=== PATIENT | female | born 1960 | race Native Hawaiian/Other Pacific Islander ===

== ENCOUNTER → 2020-09-18 12:42 | Outpatient (BNVA) | payer MEDICARE, MEDICAID, SELFPAY | PROVIDERS: PCP Nurse Practitioner Family; Referring Provider Nurse Practitioner Family; Visit Provider Student in an Organized Health Care Education/Training Program | DX: M89.49 Other hypertrophic osteoarthropathy, multiple sites (principal) | CPT/HCPCS: 99213 ==

== ENCOUNTER 2020-10-12 11:06 | Outpatient (REF) | payer OTHER, SELFPAY ==
[2020-10-12 12:30] LABS: MANUAL DIFF FLAG NO
[2020-10-12 12:36] LABS: Basophils Absolute Auto 0.1 X10*3/uL (0.0-0.2); Basophils Percent Auto 0.7 % (0-2); Eosinophils Absolute Auto 0.2 X10*3/uL (0.0-0.4); Eosinophils Percent Auto 2.3 % (0-4); Hematocrit 39.2 % (37-47); Hemoglobin 12.8 g/dl (12.0-16.0); Imm Gran Abs Auto 0.01 X10*3/uL (0.00-0.03); Imm Gran Pct Auto 0.1 % (0.0-0.4); Lymphocytes Absolute Auto 3.2 X10*3/uL (1.2-4.9); Lymphocytes Percent Auto 43.8 % (20-40); Mean Corpuscular HGB Conc 32.7 g/dl (31.0-35.0); Mean Corpuscular Hemoglobin 31.8 pg (27.0-33.0); Mean Corpuscular Volume 97.5 fL (80-98); Mean Platelet Volume 9.7 fL (9.4-12.3); Monocytes Absolute Auto 0.6 X10*3/uL (0.1-1.2); Monocytes Percent Auto 8.2 % (2-11); Neutrophils Absolute Auto 3.3 X10*3/uL (2.0-8.3); Neutrophils Percent Auto 44.9 % (45-73); Platelet Count 296 X10*3/uL (160-400); Red Blood Count 4.02 X10*6/uL (4.20-5.50); Red Cell Distribution Width 12.3 % (11.0-16.0); White Blood Count 7.3 X10*3/uL (4.8-10.8)
[2020-10-12 13:12] LABS: Alanine Aminotransferase 23 U/L (0-31); Alkaline Phosphatase 96 U/L (39-117); Anion Gap 11 (12-20); Aspartate Amino Transferase 28 U/L (5-31); Bilirubin Total 0.4 mg/dL (0.0-1.0); Blood Urea Nitrogen 16 mg/dL (9-16); Calcium 9.3 mg/dL (8.4-10.2); Carbon Dioxide 28 mmol/L (22-29); Chloride 104 mmol/L (96-108); Cholesterol 236 mg/dL; Estimated Glomerular Filt Rate > 60; Glucose Random 72 mg/dL (60-115); HDL Cholesterol 73 mg/dL; LDL Cholesterol Calculated 142 mg/dl; Potassium 4.6 mmol/l (3.3-5.1); Sodium 138 mmol/L (135-145); Total Protein 7.5 g/dL (6.5-8.0); Triglycerides 107 mg/dL
[2020-10-12 13:36] LABS: Syphilis Screen Nonreactive (Nonreactive)
[2020-10-13 11:36] LABS: HIV RNA PCR Qn Copies <20 DETECTED copies/mL (NOT DETECTED); HIV RNA PCR Qn Log Copies <1.30 DETECTED (NOT DETECTED)
[2020-10-13 12:22] LABS: Absolute CD3 Count 2613 cells/uL (840-3060); Absolute CD4 Count 1354 cells/uL (490-1740); Absolute CD8 Count 1242 cells/uL (180-1170); Absolute Lymphocytes 3432 cells/uL (850-3900); CD4 CD8 Ratio 1.09 (0.86-5.00); Percent CD3 Cells 76 % (57-85); Percent CD4 Cells 39 % (30-61); Percent CD8 Cells 36 % (12-42)
[2020-10-15 10:57] LABS: TS Negative Control Passed; TS Panel A 0; TS Panel B 0; TS Positive Control Passed; TSpotTB Negative (SeeBelow)
== END 2020-10-12 11:07 | disposition home or self-care (01) ==
LOC: HO.LAB 11:06
PROVIDERS: Absent Provider Internal Medicine; PCP Family Medicine; Visit Provider Internal Medicine
DX: Z20.828 Contact with and (suspected) exposure to other viral communicable diseases (principal); Z21 Asymptomatic human immunodeficiency virus [HIV] infection status
CPT/HCPCS: 36415; 80053; 80061; 85025; 86359; 86360; 86481; 86780; 87536; C9803; U0003

== ENCOUNTER 2020-12-22 15:40 | Outpatient (REF) | payer OTHER, SELFPAY | END 2020-12-22 15:41 | disposition home or self-care (01) | LOC: HO.LAB 15:40 | PROVIDERS: Visit Provider Internal Medicine | DX: Z20.822 Contact with and (suspected) exposure to COVID-19 (principal) | CPT/HCPCS: 36415; C9803; U0003 ==

== ENCOUNTER 2020-12-22 15:51 | Outpatient (REF) | payer OTHER, SELFPAY ==
--- NOTE | 2020-12-22 | MM_ITS ---
EXAMINATION: MM SCREENING DIGITAL BREAST TOMOSYNTHESIS, BILATERAL CLINICAL INFORMATION: Screening. Asymptomatic. The lifetime risk of breast cancer based on the Tyrer-Cuzick Model is 6%. COMPARISON: Mammography: 12/17/2019, 12/07/2018, 11/06/2017 TECHNIQUE: Digital breast tomosynthesis is performed in both the craniocaudal and mediolateral oblique views along with computer-aided detection (CAD). Synthesized 2D images are generated from the tomosynthesis. Additional right MLO view is provided. FINDINGS: There are scattered areas of fibroglandular density (ACR BI-RADS breast composition Category b). Parenchymal pattern is similar to prior studies. There is no developing density or interval mass or architectural abnormality. Right breast shows no abnormal calcifications. Left breast has several new punctate tightly grouped calcifications central breast on CC view also visible on CC tomography. There are no grouped calcifications noted on MLO view suggesting either scattered calcifications or combination with digital processing artifact. Patient will be recalled for additional imaging. MM/MM tomosynthesis screening BI IMPRESSION: 1. Left: New tightly grouped punctate calcifications central breast on CC view. 2. Right: No mammographic evidence of malignancy. ASSESSMENT: BI-RADS 0: Incomplete - Need Additional Imaging Evaluation RECOMMENDATION: 1. Additional views of the left breast (magnification CC, magnification ML). 2. Radiology department staff will contact the patient for additional imaging. This patient's information was entered into a reminder system with a target due date for their next mammogram.
== END 2020-12-22 15:52 | disposition home or self-care (01) ==
LOC: HO.MAMMO 15:51
PROVIDERS: PCP Family Medicine; Visit Provider Family Medicine
DX: Z12.31 Encounter for screening mammogram for malignant neoplasm of breast (principal)
CPT/HCPCS: 77063; 77067

== ENCOUNTER 2020-12-31 15:39 | Outpatient (REF) | payer OTHER, SELFPAY | END 2020-12-31 15:40 | disposition home or self-care (01) | LOC: HO.LAB 15:39 | PROVIDERS: Visit Provider Internal Medicine | DX: Z20.822 Contact with and (suspected) exposure to COVID-19 (principal) | CPT/HCPCS: 36415; C9803; U0003; U0005 ==

== ENCOUNTER 2021-02-22 12:22 | Outpatient (REF) | payer OTHER, SELFPAY | END 2021-02-22 12:23 | disposition home or self-care (01) | LOC: HO.MAMMO 12:22 | PROVIDERS: Visit Provider Family Medicine | DX: Z13.89 Encounter for screening for other disorder (principal) ==

== ENCOUNTER 2021-02-24 12:56 | Outpatient (REF) | payer OTHER, SELFPAY ==
[2021-02-24 15:38] LABS: SARS COV2 PCR INHOUSE NEGATIVE (Negative)
== END 2021-02-24 12:57 | disposition home or self-care (01) ==
LOC: HO.LAB 12:56
PROVIDERS: Visit Provider Internal Medicine
DX: Z20.822 Contact with and (suspected) exposure to COVID-19 (principal)
CPT/HCPCS: C9803; U0003

== ENCOUNTER 2021-02-26 11:21 | Outpatient (REF) | payer OTHER, SELFPAY ==
--- NOTE | ~2021-02-26 | MM_ITS ---
EXAMINATION: MM DIAGNOSTIC DIGITAL MAMMOGRAPHY, LEFT CLINICAL INFORMATION: Left breast calcifications. COMPARISON: Mammography: 12/22/2020 and studies dating back to 08/10/2012. TECHNIQUE: Digital mammography is performed in the following views: Spot magnification views in craniocaudal and 90 degree mediolateral views. FINDINGS: There are scattered areas of fibroglandular density (ACR BI-RADS breast composition Category b). The calcifications noted within the inferior aspect of the left breast do not have any linear or branching forms. They also appear to be related to or directly adjacent to vessels. Recommend six-month magnification views to ensure stability. Results are provided to the patient at time of visit by the technologist. MM/MM added views LT IMPRESSION: Probably benign left breast calcifications for which 6 month follow-up is recommended. ASSESSMENT: BI-RADS 3: Probably Benign. RECOMMENDATION: Diagnostic mammography in 6 months. This patient's information was entered into a reminder system with a target due date for their next mammogram.
== END 2021-02-26 11:22 | disposition home or self-care (01) ==
LOC: HO.MAMMO 11:21
PROVIDERS: Visit Provider Family Medicine
DX: R92.1 Mammographic calcification found on diagnostic imaging of breast (principal)
CPT/HCPCS: 77065

== ENCOUNTER → 2021-04-07 09:40 | Outpatient (BNVA) | payer OTHER, SELFPAY | PROVIDERS: PCP Nurse Practitioner Family; Referring Provider Nurse Practitioner Family; Visit Provider Student in an Organized Health Care Education/Training Program | DX: M89.49 Other hypertrophic osteoarthropathy, multiple sites (principal) | CPT/HCPCS: 99212 ==

== ENCOUNTER 2021-05-25 11:18 | Outpatient (REF) | payer OTHER, SELFPAY ==
--- NOTE | ~2021-05-25 | XR_ITS ---
EXAMINATION: XR ANKLE, LEFT. XR FOOT, LEFT. CLINICAL INFORMATION: Pain COMPARISON: 05/02/2018 TECHNIQUE: 3 views of the left ankle. 3 views of the left foot. FINDINGS: Normal alignment with no fracture. Large heel spur. The ankle mortise is preserved. Minimal degenerative change of the 1st MTP joint with small osteophyte. No radiopaque foreign body. XR/XR foot LT min 3V IMPRESSION: No acute fracture or dislocation of the left ankle or foot. Large heel spur.
--- NOTE | ~2021-05-25 | XR_ITS ---
EXAMINATION: XR ANKLE, LEFT. XR FOOT, LEFT. CLINICAL INFORMATION: Pain COMPARISON: 05/02/2018 TECHNIQUE: 3 views of the left ankle. 3 views of the left foot. FINDINGS: Normal alignment with no fracture. Large heel spur. The ankle mortise is preserved. Minimal degenerative change of the 1st MTP joint with small osteophyte. No radiopaque foreign body. XR/XR ankle LT min 3V IMPRESSION: No acute fracture or dislocation of the left ankle or foot. Large heel spur.
== END 2021-05-25 11:19 | disposition home or self-care (01) ==
LOC: HO.XRAY 11:18
PROVIDERS: PCP Family Medicine; Referring Provider Family Medicine; Visit Provider Nurse Practitioner Family
DX: M25.572 Pain in left ankle and joints of left foot (principal)
CPT/HCPCS: 73610; 73630

== ENCOUNTER 2021-08-10 14:30 | Outpatient (REF) | payer OTHER, SELFPAY ==
--- NOTE | ~2021-08-10 | MM_ITS ---
EXAMINATION: MM DIAGNOSTIC DIGITAL BREAST TOMOSYNTHESIS, LEFT CLINICAL INFORMATION: Short interval six-month follow-up probable benign punctate calcifications left breast. The lifetime risk of breast cancer based on the Tyrer-Cuzick Model is 6%. COMPARISON: Mammography: 02/26/2021, 12/22/2020 (BI-RADS 0), 12/17/2019. TECHNIQUE: Digital breast tomosynthesis is performed in both the craniocaudal and mediolateral oblique views along with computer-aided detection (CAD). Synthesized 2D images are generated from the tomosynthesis. Additional magnification views are obtained in the CC and ML x2 projections. FINDINGS: There are scattered areas of fibroglandular density (ACR BI-RADS breast composition Category b). There is no interval mass or architectural abnormality. A few fine calcifications are present mid lower quadrant and mid upper quadrant similar to prior diagnostic exam. No pleomorphic types. No increasing calcifications. Results are provided to the patient at time of visit by the technologist. MM/MM tomosynthesis diagnostic LT IMPRESSION: No significant change punctate calcifications upper lower quadrant when compared with prior diagnostic exam. ASSESSMENT: BI-RADS 3: Probably Benign RECOMMENDATION: Magnification views left breast at time of annual bilateral mammography, due in 6 months. This patient's information was entered into a reminder system with a target due date for their next mammogram.
== END 2021-08-10 14:31 | disposition home or self-care (01) ==
LOC: HO.MAMMO 14:30
PROVIDERS: Visit Provider Family Medicine
DX: R92.1 Mammographic calcification found on diagnostic imaging of breast (principal)
CPT/HCPCS: 77061; 77065

== ENCOUNTER 2021-10-15 11:13 | Outpatient (REF) | payer OTHER, SELFPAY ==
--- NOTE | ~2021-10-15 | XR_ITS ---
EXAMINATION: X-RAY LEFT HAND/WRIST CLINICAL INFORMATION: Pain in the left wrist and in the left fingers. COMPARISON: Radiograph of the left hand dated from 05/02/2018. TECHNIQUE: PA, oblique, lateral and navicular views of the left hand/left wrist were obtained. FINDINGS: There is decreased bony mineralization and diffuse soft tissue edema. No evidence of radiopaque foreign bodies. No acute fractures or malalignment. There are mild degenerative changes of the radiocarpal joint and triscaphe space manifested by space narrowing and subcortical sclerosis. No chondrocalcinosis or erosions. XR/XR hand wrist LT IMPRESSION: No acute fractures or malalignment. Mild degenerative osteoarthritis. Diffuse soft tissue edema.
== END 2021-10-15 11:14 | disposition home or self-care (01) ==
LOC: HO.XRAY 11:13
PROVIDERS: PCP Nurse Practitioner; Visit Provider Nurse Practitioner
DX: M25.532 Pain in left wrist (principal); M79.645 Pain in left finger(s)
CPT/HCPCS: 73110; 73130

== ENCOUNTER 2021-11-10 09:12 | Outpatient (REF) | payer OTHER, SELFPAY ==
--- NOTE | ~2021-11-10 | MM_ITS ---
EXAMINATION: BONE DENSITOMETRY CLINICAL INDICATION: Osteoporosis. COMPARISON: Baseline BD dated 05/13/2011, spine and femoral neck. TECHNIQUE: Using a [employer] DXA System (software version: 13.1) manufactured by [employer], dual-energy x-ray absorptiometry was performed of the lumbar spine and left hip. The images are of good technical quality. Summary results are attached. FINDINGS: AP SPINE L1-L4: Current: BMD 0.859 g/cm2, Z-score -2.2, T-score -2.7, osteoporosis, 12.3% decrease from baseline (<5% change is not significant). Baseline: BMD 0.979 g/cm2. LEFT FEMUR, NECK: Current: BMD 0.719 g/cm2, Z-score -1.6, T-score -2.3, osteopenia. Baseline: BMD 0.748 g/cm2. LEFT FEMUR, TOTAL: Current: BMD 0.814 g/cm2, Z-score -1.2, T-score -1.5, osteopenia. IDENTIFIED RISK FACTORS: Menopause. HISTORY OF FRACTURE: None listed. MEDICATIONS: Calcium supplements or multivitamin, vitamin D. MM/XR DEXA axial skeleton IMPRESSION: 1. DIAGNOSIS: Osteoporosis based on the lowest T-score value of -2.7 in the lumbar spine applying World Health Organization criteria. 2. 10-YEAR FRACTURE RISK PREDICTION, FRAX: According to the guidelines, FRAX calculation should only be performed on patients in the osteopenia bone density category. 3. Treatment Recommendations: NOF guidelines recommend consideration for treatment in postmenopausal women and men age 50 and older presenting with the following: -A hip or vertebral (clinical or morphometric) fracture. -T-score less than or equal to -2.5 at the femoral neck or spine after appropriate evaluation to exclude secondary causes. -Low bone mass at the hip or spine and a 10-year fracture probability by FRAX of greater than or equal to 3% for hip fracture or greater than or equal to 20% for major osteoporotic fracture based on the [place] adapted WHO algorithm. 4. Other Recommendations: All treatment decisions require clinical judgment and consideration of individual patient factors, including patient preferences, comorbidities, previous drug use, risk factors not captured in the FRAX model (e.g. frailty, falls, vitamin D deficiency, increased bone turnover, interval significant decline in bone density) and possible under or overestimation of fracture risk by FRAX. Additional medical evaluation for secondary cause of low bone mineral density may be appropriate. FUTURE SCAN RECOMMENDATION: People with diagnosed cases of osteoporosis or at high risk for fracture should have regular bone mineral density tests. For patients eligible for Medicare, routine testing is allowed once every 2 years. The testing frequency can be increased to one year for patients who have rapidly progressing disease, those who are receiving or discontinuing medical therapy to restore bone mass, or have additional risk factors.
== END 2021-11-10 09:13 | disposition home or self-care (01) ==
LOC: HO.MAMMO 09:12
PROVIDERS: Visit Provider Nurse Practitioner
DX: Z13.820 Encounter for screening for osteoporosis (principal); M81.0 Age-related osteoporosis without current pathological fracture; N95.8 Other specified menopausal and perimenopausal disorders; Z78.0 Asymptomatic menopausal state; Z79.899 Other long term (current) drug therapy
CPT/HCPCS: 77080

== ENCOUNTER 2022-01-31 08:46 | Outpatient (REF) | payer OTHER, SELFPAY ==
--- NOTE | ~2022-01-31 | MM_ITS ---
EXAMINATION: MM DIAGNOSTIC DIGITAL BREAST TOMOSYNTHESIS, BILATERAL CLINICAL INFORMATION: Due for yearly. Also follow-up probable benign tightly grouped punctate calcifications central left breast on CC view. TC score 8%. COMPARISON: Mammography: 08/10/2021, 02/26/2021, 12/22/2020 (BI-RADS 0), 12/17/2019, 12/07/2018 TECHNIQUE: Digital breast tomosynthesis is performed in both the craniocaudal and mediolateral oblique views along with computer-aided detection (CAD). Synthesized 2D images are generated from the tomosynthesis. Additional magnification left CC and magnification left ML views are obtained. FINDINGS: There are scattered areas of fibroglandular density (ACR BI-RADS breast composition Category b). Parenchymal pattern is similar to prior exams. There is no developing density or interval mass or architectural abnormality. The axilla and skin contours are unremarkable. No abnormal calcifications on the right. The tightly grouped fine punctate calcifications central left breast on CC view are stable from prior diagnostic studies. They will be reassessed again at time of annual bilateral mammography, due in 12 months. No significant changes. Results are provided to the patient at time of visit by the technologist. MM/MM tomosynthesis diagnostic BI IMPRESSION: No significant changes from prior studies. Probable benign left breast calcifications for follow-up, stable. ASSESSMENT: BI-RADS 3: Probably Benign RECOMMENDATION: Diagnostic mammography at time of next annual exam, due in 12 months. This patient's information was entered into a reminder system with a target due date for their next mammogram.
== END 2022-01-31 08:47 | disposition home or self-care (01) ==
LOC: HO.MAMMO 08:46
PROVIDERS: PCP Nurse Practitioner; Visit Provider Nurse Practitioner
DX: R92.1 Mammographic calcification found on diagnostic imaging of breast (principal)
CPT/HCPCS: 77062; 77066

== ENCOUNTER 2022-03-08 08:59 | Outpatient (REF) | payer OTHER, SELFPAY | END 2022-03-08 09:00 | disposition home or self-care (01) | LOC: HO.LAB 08:59 | PROVIDERS: Visit Provider Obstetrics & Gynecology | DX: R87.810 Cervical high risk human papillomavirus (HPV) DNA test positive (principal) | CPT/HCPCS: 57456; 88305 ==

== ENCOUNTER → 2022-03-22 15:34 | Outpatient (BNVA) | payer OTHER, SELFPAY | PROVIDERS: Visit Provider Obstetrics & Gynecology | DX: N87.0 Mild cervical dysplasia (principal) | CPT/HCPCS: 99212 ==

== ENCOUNTER 2022-04-08 14:07 | Outpatient (REF) | payer OTHER, SELFPAY ==
--- NOTE | ~2022-04-08 | XR_ITS ---
EXAMINATION: XR HIP, LEFT CLINICAL INFORMATION: Chronic left hip pain COMPARISON: None TECHNIQUE: Two views of the left hip. FINDINGS: Bone alignment is normal. No fracture or dislocation is seen. There is a large superior lateral acetabular osteophyte. Joint space is otherwise normal. Soft tissues are normal. XR/XR hip LT min 2V IMPRESSION: Degenerative change.
== END 2022-04-08 14:08 | disposition home or self-care (01) ==
LOC: HO.XRAY 14:07
PROVIDERS: PCP Nurse Practitioner; Visit Provider Nurse Practitioner Family
DX: M25.552 Pain in left hip (principal)
CPT/HCPCS: 73502; 99212

== ENCOUNTER 2022-06-20 13:27 | Outpatient (REF) | payer OTHER, SELFPAY ==
[2022-06-20 14:23] LABS: COVID-19 Test Negative (Negative); IDNOW Serial# 08D9AD1C
== END 2022-06-20 13:28 | disposition home or self-care (01) ==
LOC: HO.LAB 13:27
PROVIDERS: Visit Provider Internal Medicine
DX: Z20.822 Contact with and (suspected) exposure to COVID-19 (principal)
CPT/HCPCS: 87635; C9803

== ENCOUNTER → 2022-09-30 14:11 | Outpatient (BNVA) | payer OTHER, SELFPAY | PROVIDERS: PCP Nurse Practitioner; Visit Provider Nurse Practitioner Family | DX: K62.89 Other specified diseases of anus and rectum (principal); K64.4 Residual hemorrhoidal skin tags; Z86.010 Personal history of colon polyps | CPT/HCPCS: 99202 ==

== ENCOUNTER 2023-02-03 14:50 | Outpatient (REF) | payer OTHER, SELFPAY ==
--- NOTE | ~2023-02-03 | MM_ITS ---
EXAMINATION: MM DIAGNOSTIC DIGITAL BREAST TOMOSYNTHESIS, BILATERAL CLINICAL INFORMATION: One-year follow-up left breast calcifications. Screening right breast study. The lifetime risk of breast cancer based on the Tyrer-Cuzick Model is 5.8%. COMPARISON: Mammography: January 31, 2022 and studies dating back to September 22, 2016 TECHNIQUE: Digital breast tomosynthesis is performed in both the craniocaudal and mediolateral oblique views along with computer-aided detection (CAD). Synthesized 2D images are generated from the tomosynthesis. Additional spot magnification views in craniocaudal and mediolateral projections left breast also performed. FINDINGS: There are scattered areas of fibroglandular density (ACR BI-RADS breast composition Category b). There are no new significant masses, abnormal calcifications, or other abnormalities. Stable left breast calcifications are present. Results are provided to the patient at time of visit by the technologist. MM/MM tomosynthesis diagnostic BI IMPRESSION: There are no significant changes from prior study. ASSESSMENT: BI-RADS 1: Negative RECOMMENDATION: Routine annual mammography screening. This patient's information was entered into a reminder system with a target due date for their next mammogram.
== END 2023-02-03 14:51 | disposition home or self-care (01) ==
LOC: HO.MAMMO 14:50
PROVIDERS: PCP Nurse Practitioner; Visit Provider Nurse Practitioner
DX: R92.1 Mammographic calcification found on diagnostic imaging of breast (principal)
CPT/HCPCS: 77062; 77066

== ENCOUNTER → 2023-03-23 13:15 | Outpatient (BNVA) | payer OTHER, SELFPAY | PROVIDERS: PCP Nurse Practitioner; Visit Provider Surgery Vascular Surgery | DX: I83.11 Varicose veins of right lower extremity with inflammation (principal) | CPT/HCPCS: 99202 ==

== ENCOUNTER 2023-03-27 13:25 | Outpatient (REF) | payer OTHER, SELFPAY ==
[2023-03-30 07:24] LABS: HPV mRNA E6/E7 rflx Not Detected (Not Detected)
== END 2023-03-27 13:26 | disposition home or self-care (01) ==
LOC: HO.LNP 13:25
PROVIDERS: PCP Registered Nurse; Visit Provider Obstetrics & Gynecology
DX: Z01.419 Encounter for gynecological examination (general) (routine) without abnormal findings (principal); Z11.51 Encounter for screening for human papillomavirus (HPV)
CPT/HCPCS: 87624; 88142

== ENCOUNTER 2023-04-04 12:41 | Outpatient (REF) | payer OTHER, SELFPAY ==
--- NOTE | ~2023-04-04 | US_ITS ---
EXAMINATION: US LOWER EXTREMITY VENOUS (REFLUX EXAM), BILATERAL CLINICAL INDICATION: Chronic venous insufficiency with lower extremity varicose veins, inflammation and pain COMPARISON: 10/23/2007 TECHNIQUE: Color flow triplex imaging and compression Doppler was performed to evaluate both the deep and the superficial systems bilaterally. To evaluate the superficial system, the examination was performed in the upright position. Color-flow Doppler ultrasound and compression ultrasound were utilized. In addition, maneuvers were utilized to demonstrate reflux. FINDINGS: 1. DEEP VENOUS ULTRASOUND OF THE RIGHT LOWER EXTREMITY: Common Femoral Vein: Compressible, normal respiratory variation and augmented flow. Femoral Vein: Compressible, normal color flow and augmentation. Popliteal Vein: Compressible, normal augmentation. Deep Reflux: There is no evidence of reflux in the deep system in either the common femoral vein or the popliteal vein. There is no evidence of a Miller's cyst. 2. SUPERFICIAL ULTRASOUND WITH DOPPLER OF RIGHT LOWER EXTREMITY: GREAT SAPHENOUS VEIN: Saphenofemoral Junction: 0.6 cm; Reflux: 0 ms Proximal Thigh: 0.4 cm; Reflux: 0 ms Mid Thigh: Not visualized Above Knee: Not visualized At Knee: Not visualized Below Knee: Not visualized Mid Calf: 0.3 cm; Reflux: 0 ms Ankle: 0.3 cm; Reflux: 3192 ms DUPLICATED MEDIAL GREAT SAPHENOUS VEIN: Diameter: None Imaged Reflux: NA DUPLICATED LATERAL GREAT SAPHENOUS VEIN: Diameter: 0.4 cm Reflux: None SMALL SAPHENOUS VEIN: Proximal: 0.3 cm; Reflux: 0 ms Distal: 0.2 cm; Reflux: 2924 ms VEIN OF GIACOMINI: None Imaged. PERFORATORS: Location: Mid calf extending into the residual great saphenous vein Size: 0.2 cm Reflux: 3388 ms VARICOSITIES: Location: Proximal to mid thigh arising from the residual great saphenous vein Size: 0.2 cm to 0.3 cm Reflux: None 3. DEEP VENOUS ULTRASOUND OF THE LEFT LOWER EXTREMITY: Common Femoral Vein: Compressible, normal respiratory variation and augmented flow. Femoral Vein: Compressible, normal color flow and augmentation. Popliteal Vein: Compressible, normal augmentation. Deep Reflux: There is no evidence of reflux in the deep system in either the common femoral vein or the popliteal vein. There is no evidence of a Miller's cyst. 4. SUPERFICIAL ULTRASOUND WITH DOPPLER OF LEFT LOWER EXTREMITY: GREAT SAPHENOUS VEIN: Saphenofemoral Junction: 0.6 cm; Reflux: 0 ms Proximal Thigh: 0.7 cm; Reflux: 0 ms Mid Thigh: Not visualized Above Knee: Not visualized At Knee: Not visualized Below Knee: Not visualized Mid Calf: 0.2 cm; Reflux: 0 ms Ankle: 0.2 cm; Reflux: 0 ms DUPLICATED MEDIAL GREAT SAPHENOUS VEIN: Diameter: 0.3 cm Reflux: None DUPLICATED LATERAL GREAT SAPHENOUS VEIN: Diameter: None Imaged Reflux: NA SMALL SAPHENOUS VEIN: Proximal: 0.3 cm; Reflux: 0 ms Distal: 0.2 cm; Reflux: 0 ms VEIN OF GIACOMINI: None Imaged. PERFORATORS: Location: Proximal calf Size: 0.4 cm Reflux: 3276 ms VARICOSITIES: Location: Proximal and mid calf arising from the military equipment specialist vein Size: 0.2 cm Reflux: None US/US venous duplex LE BI IMPRESSION: Right: Great saphenous vein from the mid to thigh to the proximal calf is not visualized consistent with prior ablation/closure. Small residual varicose veins as described above Left: Great saphenous vein from the mid to thigh to the proximal calf is not visualized consistent with prior ablation/closure. Small residual varicose veins as described above
== END 2023-04-04 12:42 | disposition home or self-care (01) ==
LOC: HO.US 12:41
PROVIDERS: PCP Nurse Practitioner; Visit Provider Surgery Vascular Surgery
DX: I83.11 Varicose veins of right lower extremity with inflammation (principal)
CPT/HCPCS: 93970

== ENCOUNTER 2023-04-11 09:48 | Outpatient (REF) | payer OTHER, SELFPAY ==
--- NOTE | ~2023-04-11 | XR_ITS ---
EXAMINATION: Right shoulder, elbow and wrist x-rays CLINICAL INFORMATION: Pain COMPARISON: Previous right shoulder x-ray September 2019 TECHNIQUE: 4 views of the right shoulder, 4 views of the right elbow and 4 views of the right wrist FINDINGS: Right shoulder: Bone alignment is normal. No fracture or dislocation. The glenohumeral joint is normal. There is arthritis at the acromioclavicular joint. There is an undersurface acromial osteophyte. There is bony osteophyte at the greater tuberosity. Soft tissues are unremarkable. Right elbow: There is question of a nondisplaced fracture of the radial head. No other fracture is seen. The joint spaces are normal. There is a small joint effusion. Right wrist: Bone alignment is normal. No fracture or dislocation. 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 There is mild osteoarthritis at the first MCFP joint. Soft tissues are normal. XR/XR elbow RT min 3V IMPRESSION: Right shoulder: Degenerative changes Right elbow: Question nondisplaced radial head fracture. 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 Mild degenerative changes at the first MCFP joint.
--- NOTE | ~2023-04-11 | XR_ITS ---
EXAMINATION: Right shoulder, elbow and wrist x-rays CLINICAL INFORMATION: Pain COMPARISON: Previous right shoulder x-ray September 2019 TECHNIQUE: 4 views of the right shoulder, 4 views of the right elbow and 4 views of the right wrist FINDINGS: Right shoulder: Bone alignment is normal. No fracture or dislocation. The glenohumeral joint is normal. There is arthritis at the acromioclavicular joint. There is an undersurface acromial osteophyte. There is bony osteophyte at the greater tuberosity. Soft tissues are unremarkable. Right elbow: There is question of a nondisplaced fracture of the radial head. No other fracture is seen. The joint spaces are normal. There is a small joint effusion. Right wrist: Bone alignment is normal. No fracture or dislocation. 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 There is mild osteoarthritis at the first CUSTODIAL joint. Soft tissues are normal. XR/XR shoulder RT min 2V IMPRESSION: Right shoulder: Degenerative changes Right elbow: Question nondisplaced radial head fracture. 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 Mild degenerative changes at the first CUSTODIAL joint.
--- NOTE | ~2023-04-11 | XR_ITS ---
EXAMINATION: Right shoulder, elbow and wrist x-rays CLINICAL INFORMATION: Pain COMPARISON: Previous right shoulder x-ray September 2019 TECHNIQUE: 4 views of the right shoulder, 4 views of the right elbow and 4 views of the right wrist FINDINGS: Right shoulder: Bone alignment is normal. No fracture or dislocation. The glenohumeral joint is normal. There is arthritis at the acromioclavicular joint. There is an undersurface acromial osteophyte. There is bony osteophyte at the greater tuberosity. Soft tissues are unremarkable. Right elbow: There is question of a nondisplaced fracture of the radial head. No other fracture is seen. The joint spaces are normal. There is a small joint effusion. Right wrist: Bone alignment is normal. No fracture or dislocation. 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 There is mild osteoarthritis at the first SENIOR LIVING joint. Soft tissues are normal. XR/XR wrist RT w scaphoid IMPRESSION: Right shoulder: Degenerative changes Right elbow: Question nondisplaced radial head fracture. 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 Mild degenerative changes at the first SENIOR LIVING joint.
--- NOTE | ~2023-04-11 | XR_ITS ---
EXAMINATION: XR RIBS, RIGHT CLINICAL INFORMATION: Trauma. Patient fell in early March. COMPARISON: Previous chest x-ray July 2015 TECHNIQUE: 3 views of the right ribs were obtained. FINDINGS: Lungs are clear. No consolidation, pneumothorax, or pleural effusion. The cardiomediastinal silhouette and pulmonary vasculature are normal. No rib fracture or bone lesion. Degenerative changes of the spine. XR/XR ribs RT min 3V w CXR1V IMPRESSION: No evidence for acute disease in the chest. No rib fracture.
== END 2023-04-11 09:49 | disposition home or self-care (01) ==
LOC: HO.HHCX 09:48
PROVIDERS: Visit Provider Family Medicine
DX: R07.81 Pleurodynia (principal); M25.521 Pain in right elbow; M25.511 Pain in right shoulder; M25.531 Pain in right wrist
CPT/HCPCS: 71101; 73030; 73080; 73110

== ENCOUNTER → 2023-04-25 10:08 | Outpatient (BNVA) | payer OTHER, SELFPAY | PROVIDERS: PCP Registered Nurse; Visit Provider Surgery Vascular Surgery | DX: I83.11 Varicose veins of right lower extremity with inflammation (principal) | CPT/HCPCS: 99212 ==

== ENCOUNTER 2023-05-02 07:33 | Outpatient (REF) | payer OTHER, SELFPAY ==
--- NOTE | ~2023-05-02 | XR_ITS ---
EXAMINATION: XR ELBOW, RIGHT CLINICAL INFORMATION: Pain in unspecified abdominal COMPARISON: 04/01/2023 Right elbow TECHNIQUE: AP, lateral, and oblique views of the right elbow. FINDINGS: There is a nondisplaced fracture comminuted intra-articular fracture of the radial head. There is slight associated sclerosis indicative of healing No joint effusion is appreciated. Alignment is anatomic. Joint spaces are maintained. XR/XR elbow RT min 3V IMPRESSION: Healing nondisplaced comminuted intra-articular fracture of the radial head. At the time of this dictation, PSA service contacted to alert referring M.D. of critical findings.
== END 2023-05-02 07:34 | disposition home or self-care (01) ==
LOC: HO.HOSX 07:33
PROVIDERS: Visit Provider Physician Assistant
DX: S52.121A Displaced fracture of head of right radius, initial encounter for closed fracture (principal)
CPT/HCPCS: 73080; 99202

== ENCOUNTER 2023-06-05 08:18 | Outpatient (AMB) | payer OTHER, SELFPAY ==
--- NOTE | 2023-06-05 08:32 | MHC.OFFVIS ---
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 Patient states that she actually noticed that she has bumps outside of her rectum when she wipes. She does have external hemorrhoids without bleeding no fissures. Will give her script for Proctosol Screen for colon cancer Patient is due to go for colorectal screening. She was supposed to return in 3 years and her last colonoscopy was in 2019, tubular adenoma found. Patient denies any melena, hematochezia, unintentional weight loss or ribbon like stools. Denies any issues with anesthesia, however she did say that needed nausea medicine. Patient denies any history of sleep apnea, however she is obese. Denies any history of infectious diseases in the past or present. Denies any cardiac or respiratory symptoms. Discussed with patient the importance of good bowel prep and clear liquid diet day before the procedure. What to expect before during and after the procedure discussed with patient. I will see her after the procedure. She is agreeable to this plan and verbalizes understanding of instructions. She was given the opportunity to ask questions all questions answered. ? ? Thank you for allowing me to participate in her care Plan Medications New bisacodyl (Dulcolax (bisacodyl)) take 2 tabs at noon the day before your colonoscopy 10 mg (2 x 5 mg) PO ONCE 2 tabs 0RF 1 day Z12.11 polyethylene glycol 3350 (Miralax) As directed by gastroenterology department at [facility] 238 grams PO ONCE 238 grams 0RF Z12.11 hydrocortisone 2.5% (Proctosol HC) 1 appl MO BID-QID PRN 30 grams 2RF hemorrhoids K64.9 TODAY'S VISIT Patient is here today to go over colonoscopy procedure again. Patient has not received phone call to go for colorectal screening. Patient denies any melena, hematochezia, unintentional weight loss and like stools. Denies any changes since the last time I have seen her. Last colonoscopy in 2019 showed tubular adenoma and 3 years follow-up was recommended. Patient will be scheduled for the procedure today. Will discuss with her what to expect before during and after the procedure. Patient denies any GI concerning symptoms except for occasional postprandial abdominal bloating. Patient is moving her bowels without any issues, no longer experiences rectal pain. Denies any cardiac or respiratory symptoms. [facility] Medical History Asthma Depression Primary osteoarthritis involving multiple joints Surgical History H/O tubal ligation Family History Father No problems noted. Mother No problems noted. Social History Household Members: None Housing: Apartment Alcohol intake: never Patient Tobacco Use Status: Never used Tobacco Current occupational status: disabled Sexual orientation: Straight/Heterosexual Gender identity: Female Female Reproductive History Menstrual Age of Menarche: 12 Review of Systems Const Denies weight gain and Denies weight loss ENT Reports no additional complaints, Denies dysphagia and Denies odynophagia Card Reports no additional complaints Resp Reports no additional complaints GI Denies abdominal pain, Denies belching, Denies melena, Reports bloating (Occasional), Denies change in bowel habits, Denies dysphagia, Denies excessive flatus, Denies dyspepsia, Denies heartburn, Denies diarrhea, Denies loose stools, Denies nausea, Denies odynophagia and Denies vomiting Reports no additional complaints Musc Reports no additional complaints Neuro Reports no additional complaints Psych Reports no additional complaints Endo Reports no additional complaints Physical Exam Vital Signs: Last Vital Signs Pulse 64 06/05/23 08:33 BP 128/58 L 06/05/23 08:33 BMI result Body Mass Index 32.9 Const General: healthy appearing, no acute distress and well developed Nutritional Appearance: obese Orientation/consciousness: patient oriented x3 HEENT Head: Yes normal to inspection, Yes normocephalic and Yes atraumatic Face and sinus: Yes normal facial exam Mouth: Normal oral and palatal mucosa present Throat: Yes posterior oropharynx normal, Yes tonsils normal and Yes uvula midline Eyes General: appearance normal, both eyes and all related structures Neck Neck: Yes normal visual inspection, Yes full ROM and Yes trachea midline Thyroid: Thyroid normal Resp Effort & Inspection: normal respiratory effort, able to speak in complete sentences, no tracheal deviation and symmetric chest movement Auscultation: clear to auscultation bilaterally Cardio Jugular venous distension: no JVD Rate: regular rate Heart sounds: S1 normal heart sound present, S2 normal heart sound present, no gallops and no murmurs GI Inspection: Yes normal to inspection, No distended and Yes obesity Palpation (GI): Soft to palpation, not firm, nontender and No hepatosplenomegaly present Auscultation: normal bowel sounds General: Yes no CVA tenderness Back/Spine/Pelvis Back: no CVA tenderness Skin General skin exam: elasticity normal, turgor normal and dry skin Neuro General: patient oriented x3 Psych Appearance: grossly normal Mental Status: mental status grossly normal Speech and movement: Normal speech and movement present Affect: normal affect Assessment & Plan Assessment & Plan (1) Colon cancer screening: Code(s): Z12.11 - Encounter for screening for malignant neoplasm of colon Plan: What to expect before during and after the procedure discussed with patient. Patient states that she has her prep at home. Patient will do split MiraLax prep. Dulcolax at noon day before the procedure and MiraLax at 17:00 and 22:00. Patient will be booked for the procedure today and I will see her after the procedure. She is agreeable to this plan and verbalizes understanding of instructions. She was given the opportunity to ask questions and all questions answered. Thank you for allowing me to participate in her care Coding Level of Care Code Est Pt Level 3 (49875) Diagnoses Colon cancer screening Z12.11 Time Spent (min) 30 Comment 20 minutes spent with patient and additional 10 minutes spent reviewing her records
[2023-06-05 08:33] VITALS: BP 128/58; PULSE 64; BMI 32.9
== END 2023-06-05 10:23 | disposition home or self-care (01) ==
PROVIDERS: PCP Registered Nurse; Visit Provider Nurse Practitioner Family
DX: Z12.11 Encounter for screening for malignant neoplasm of colon (principal)
CPT/HCPCS: 99213

== ENCOUNTER → 2023-06-05 08:18 | Outpatient (BNVA) | payer OTHER, SELFPAY | PROVIDERS: PCP Registered Nurse; Visit Provider Nurse Practitioner Family | DX: Z12.11 Encounter for screening for malignant neoplasm of colon (principal) | CPT/HCPCS: 99212 ==

== ENCOUNTER 2023-06-09 10:00 | Outpatient (RCR) | payer OTHER, SELFPAY ==
--- NOTE | 2023-05-05 15:32 | MHC.OT.EP ---
[address] [phone] Occupational Therapy Plan of Care Patient Name: Ratna Orr Date of Evaluation: 05/05/23 Diagnosis: R RADIAL HEAD FRACTURE Pain Location: R ELBOW RADIATES TO RIBS/CHEST AND SHOULDER/NECK 6/10 AT REST ; 8/10 WITH USE R POSTERIOR SHOULDER 7/10 R VOLAR RADIAL WRIST 8/10 Pain Score: 6-8/10 Pain Scale Used: Numeric (0 - 10) Aggravating Factors: STRAIGHTENING ARM, GENERAL USE Alleviating Factors: IBUPROFEN, TRAMADOL. RELIEF WITH WARM SHOWERS. CREAMS. USING VOLTAREN. Assessment: MS ORR IS A R HANDED F WHO PRESENTS AFTER SHE SUSTAINED A FALL DOWN TWO STAIRS, RESULTING IN A NON DISPLACED R RADIAL HEAD FRACTURE. SHE ALSO C/O R POSTERIOR SHOULDER PAIN AND R RADIAL WRIST PAIN. XRAYS REVEAL DEGENERATIVE CHANGES. HER ELBOW AND WRIST ROM ARE WFL, YET HER SHOULDER CAUSES LIMITATIONS IN HER ABILITY TO WASH AND COMB HER HAIR. SHE WAS IND WITH ADLs BINDING STITCHER, ASSIST WITH IADLS FROM STREET VENDOR. A 43% LIMITATION IS REPORTED PER THE QUICK DASH ASSESSMENT. ONGOING SKILLED OT IS WARRANTED TO ADDRESS THE AREAS MENTIONED BELOW AND IMPROVE HER QOL. Frequency and Duration: The patient will be seen 2X/WEEK FOR 6 WEEKS Short Term Goals: IND HEP IND USE OF HEAT MODALITIES FOR PAIN RELIEF IND JT PROTECTION AND ACTIVITY MODIFICATION Leather Belt Loop Cutter Goals: R GROSS GRASP >25 POUNDS QUICK DASH <30% REPORT <4/10 PAIN AT REST AND DURING ADLs REPORT MILD DIFFICULTIES WITH SLEEP, TRIAL ALT SLEEPING POSITIONS Treatment Plan: Therapeutic Exercise Therapeutic Activity Home Exercise Program Splinting Neuro Re-ed Patient Education Desensitization/Sensory Re-ed Edema Control ADL Training Ultrasound NMES Iontophoresis Paraffin Fluidotherapy MHP Cold Packs Joint Mobilization Soft Tissue Mobilization Kinesiotaping Other (see comments) Electronically Signed By: HUBERT MANJARREZ OTR/L Please Sign and return to therapist. Thank you once again for your referral.
== END 2023-06-23 13:15 | disposition home or self-care (01) ==
LOC: HO.OT 10:00
PROVIDERS: PCP Registered Nurse; Visit Provider Family Medicine
DX: M79.601 Pain in right arm (principal)
CPT/HCPCS: 97033; 97035; 97110; 97140; 97166

== ENCOUNTER 2023-08-29 09:11 | Outpatient (REF) | payer OTHER, SELFPAY ==
[2023-08-29 11:39] LABS: MANUAL DIFF FLAG NO
[2023-08-29 11:46] LABS: Basophils Percent Auto 0.4 % (0-2); Eosinophils Absolute Auto 0.2 X10*3/uL (0.0-0.4); Eosinophils Percent Auto 3.4 % (0-4); Hematocrit 38.5 % (37.0-47.0); Hemoglobin 12.4 g/dl (12.0-16.0); Imm Gran Abs Auto 0.01 X10*3/uL (0.00-0.03); Imm Gran Pct Auto 0.2 % (0.0-0.4); Lymphocytes Absolute Auto 1.8 X10*3/uL (1.2-4.9); Lymphocytes Percent Auto 38.1 % (20-40); Mean Corpuscular HGB Conc 32.2 g/dl (31.0-35.0); Mean Corpuscular Hemoglobin 31.6 pg (27.0-33.0); Mean Platelet Volume 10.2 fL (9.4-12.3); Monocytes Absolute Auto 0.3 X10*3/uL (0.1-1.2); Monocytes Percent Auto 7.2 % (2-11); Neutrophils Absolute Auto 2.4 x10*3/uL (2.0-8.3); Neutrophils Percent Auto 50.7 % (45-73); Platelet Count 244 X10*3/uL (160-400); Red Blood Count 3.93 X10*6/uL (4.20-5.50); Red Cell Distribution Width 12.2 % (11.0-16.0); White Blood Count 4.7 X10*3/uL (4.8-10.8)
[2023-08-29 11:51] LABS: Estimated Average Glucose 105 mg/dL; Hemoglobin A1c % 5.3 % (<6.0)
[2023-08-29 12:48] LABS: Alanine Aminotransferase 14 U/L (0-31); Albumin Level 3.9 g/dL (3.5-5.0); Alkaline Phosphatase 54 U/L (39-117); Anion Gap 10 (12-20); Aspartate Amino Transferase 21 U/L (5-31); Bilirubin Total 0.4 mg/dL (0.0-1.0); Blood Urea Nitrogen 20 mg/dL (9-16); C Reactive Protein 0.29 mg/dL (< or = 0.50); Calcium 9.2 mg/dL (8.4-10.2); Carbon Dioxide 27 mmol/L (22-29); Chloride 108 mmol/L (96-108); Cholesterol 215 mg/dL (<200); Estimated Glomerular Filt Rate > 60; Glucose Random 82 mg/dL (60-115); HDL Cholesterol 60 mg/dL (>40); LDL Cholesterol Calculated 133 mg/dL (<100); Potassium 4.1 mmol/L (3.3-5.1); Sodium 141 mmol/L (135-145); Total Protein 7.5 g/dL (6.5-8.0); Triglycerides 112 mg/dL (<150)
[2023-08-29 12:57] LABS: Syphilis Screen Nonreactive (Nonreactive)
[2023-08-29 12:59] LABS: HBS Num1 1.15 mIU/mL (0-7.99); HBc Num1 0.09 S/CO (0.00-0.79); HBsAGNum1 0.29 S/CO (0.00-0.99); Hepatitis B Core Antibody Nonreactive (Nonreactive); Hepatitis B Surface Antigen Negative (Negative); ~HepC Num1 0.12 S/CO (0.00-0.79); ~Hepatitis B Surface Antibody NONREACTIVE (Nonreactive); ~Hepatitis C Antibody Nonreactive (Nonreactive)
[2023-08-29 13:01] LABS: Erythrocyte Sedimentation Rate 55 MM/HR (0-20)
[2023-08-29 13:07] LABS: TSH reflex Free T4 2.68 uIU/mL (0.32-4.0)
[2023-08-29 13:29] LABS: Folate 13.3 ng/mL (> or = 4.0); Rheumatoid Factor < 13.0 IU/mL (<15.0); Vitamin B12 1289 pg/mL (200-900)
[2023-08-29 15:24] LABS: CT PCR NOT DETECTED (Not Detect.); NG PCR NOT DETECTED (Not Detect.)
[2023-08-31 16:08] LABS: Cyclic Citrullinated Peptide <16 UNITS
[2023-09-02 15:19] LABS: VITAMIN D (1,25 OH) D3 38 pg/mL; Vit D (1,25-Dihydroxy) Total 38 pg/mL (18-72); Vitamin D (1,25 OH) D2 <8 pg/mL
== END 2023-08-29 09:12 | disposition home or self-care (01) ==
LOC: HO.HHCL 09:11
PROVIDERS: Visit Provider Student in an Organized Health Care Education/Training Program
DX: Z00.00 Encounter for general adult medical examination without abnormal findings (principal); Z13.21 Encounter for screening for nutritional disorder; Z13.29 Encounter for screening for other suspected endocrine disorder; E78.5 Hyperlipidemia, unspecified; Z13.1 Encounter for screening for diabetes mellitus; Z20.2 Contact with and (suspected) exposure to infections with a predominantly sexual mode of transmission; Z11.59 Encounter for screening for other viral diseases; M25.549 Pain in joints of unspecified hand; Z72.89 Other problems related to lifestyle
CPT/HCPCS: 0353U; 80053; 80061; 82607; 82652; 82746; 83036; 84443; 85025; 85652; 86140; 86200; 86431; 86704; 86706; 86780; 86803; 87340

== ENCOUNTER 2023-09-12 06:31 | Day surgery (SDC) | payer OTHER, SELFPAY ==
[2023-09-08 15:04] VITALS: BMI 32.8
--- NOTE | 2023-09-11 12:03 | P.CONAN_ITS ---
Documented by User: Camelia Wade NP 09/11/23 12:04 HPI - Anesthesia Eval Consult details Narrative: 63yo F for Colonoscopy PMFSH Active Problems Active Problems: All Active Problems (Updated 05/02/23 @ 12:52 by Lin Henson) Right radial head fracture (Acute) Colon cancer screening (Acute) Well woman exam (Acute) Varicose veins of right lower extremity with inflammation (Acute) Dysplasia of cervix, low grade (TERESITA 1) (Acute) Cervical high risk HPV (human papillomavirus) test positive (Acute) Primary osteoarthritis involving multiple joints (Acute) Past Medical History Medical History Asthma Depression Primary osteoarthritis involving multiple joints Family History Family History Father No problems noted. Mother No problems noted. Surgical History Surgical History H/O tubal ligation Social History Social History Household Members: None Housing: Apartment Alcohol intake: never Patient Tobacco Use Status: Never used Tobacco Use of substances other than those prescribed or required for medical reasons: No Are you DNR?: No Advance Directives: No Advance Directives Information Provided: Yes Current occupational status: disabled Sexual orientation: Straight/Heterosexual Gender identity: Female Meds Allergies Allergy/AdvReac Type Severity Reaction Status Date / Time efavirenz [From Sustiva] Allergy Severe NIGHTMARES Verified 06/05/23 08:34 oxycodone [From PERCOCET] Allergy Intermediate NAUSEA Verified 06/05/23 08:34 VOMITING DIZZYNESS Home Medications Medication Instructions Recorded Confirmed Last Taken Type cholecalciferol (vitamin D3) 25 25 mcg PO DAILY 09/18/20 04/08/22 Unknown History mcg (1,000 unit) capsule emtricitabine 200 mg-rilpivirine 1 tab PO DAILY 09/18/20 04/08/22 Unknown History 25 mg-tenofovir alafenam 25 mg tablet (Salome) vldigatzwtww-iwmddfmn-tyxoyi 1 tab PO DAILY 09/18/20 04/08/22 Unknown History tablet (Cerovite ) tramadol 50 mg tablet 50 mg PO Q8H PRN 09/18/20 04/08/22 Unknown History vitamin B complex (B 1 tab PO DAILY 09/18/20 04/08/22 Unknown History Complex-Vitamin B12 tablet) cyanocobalamin (vitamin B-12) 1,000 mcg PO DAILY 03/23/23 Unknown History 1,000 mcg tablet Exam Exam Date and Time: September 11, 2023 1203 Height,Weight and Vital Signs: Height 5 ft Weight 76.204 kg Pertinent Lab Results Pertinent Lab Results: Laboratory Tests 08/29/23 08/29/23 08:48 09:21 WBC 4.7 L Hgb 12.4 Hct 38.5 Plt Count 244 Sodium 141 Potassium 4.1 Chloride 108 Carbon Dioxide 27 BUN 20 H Creatinine 0.77 Assessment and Plan Assessment Anesthesia Assessment: Chart Reviewed Documented by User: Dirk Calix MD 09/12/23 07:23 [facility] Past Medical History Medical History Asthma Depression Primary osteoarthritis involving multiple joints Family History Family History Father No problems noted. Mother No problems noted. Family history of problems with anesthesia: No Surgical History Surgical History H/O tubal ligation History of Problems with Anesthesia: No Social History Social History Household Members: None Housing: Apartment Alcohol intake: never Patient Tobacco Use Status: Never used Tobacco Use of substances other than those prescribed or required for medical reasons: No Are you DNR?: No Advance Directives: No Advance Directives Information Provided: Yes Current occupational status: disabled Sexual orientation: Straight/Heterosexual Gender identity: Female Meds Allergies Allergy/AdvReac Type Severity Reaction Status Date / Time efavirenz [From Sustiva] Allergy Severe NIGHTMARES Verified 06/05/23 08:34 oxycodone [From PERCOCET] Allergy Intermediate NAUSEA Verified 06/05/23 08:34 VOMITING DIZZYNESS Home Medications Medication Instructions Recorded Confirmed Last Taken Type cholecalciferol (vitamin D3) 25 25 mcg PO DAILY 09/18/20 04/08/22 Unknown History mcg (1,000 unit) capsule emtricitabine 200 mg-rilpivirine 1 tab PO DAILY 09/18/20 04/08/22 Unknown History 25 mg-tenofovir alafenam 25 mg tablet (Odefsey) udfddyeiolbj-djzswujm-mrnnhe 1 tab PO DAILY 09/18/20 04/08/22 Unknown History tablet (Cerovite Senior) tramadol 50 mg tablet 50 mg PO Q8H PRN 09/18/20 04/08/22 Unknown History vitamin B complex (B 1 tab PO DAILY 09/18/20 04/08/22 Unknown History Complex-Vitamin B12 tablet) cyanocobalamin (vitamin B-12) 1,000 mcg PO DAILY 03/23/23 Unknown History 1,000 mcg tablet Exam Airway Mallampati Class: II TM Dist: >3cm Neck ROM: Full Denture: Upper and Lower Assessment and Plan Assessment Anesthesia Assessment: Anesthesia Plan Discussed Final Anesthetic Review Family History of Problems with Anesthesia: No History of Problems with Anesthesia: No NPO: Yes ASA Class: II Final Preanesthetic Review: No Changes in Pt Med Stat, Meds/Allgs Chart Reviewed, Consent Obtained/Reviewed and Anes Risks/Benef Reviewed Patient Risk: Intermediate Procedure Risk: Low Anesthetic Plan Anesthetic Plan: MAC: Disposition: Standard PACU
--- NOTE | 2023-09-12 06:36 | MHC.SHP ---
Pre-Procedural Eval Section A Date of Service: 09/12/23 Section B Chief Complaint: screening Relevant Family History (Specify if Yes): No Relevant Social History: None Present Medications: see Short Stay Collaborative assessment Medical History: Significant History (Asthma Depression Primary osteoarthritis involving multiple joints, HIV) History of Previous Operations: Relevant previous surgery/procedure and date(s) (tubal ligation) Allergies: Allergies Allergy/AdvReac Type Severity Reaction Status Date / Time efavirenz [From Sustiva] Allergy Severe NIGHTMARES Verified 06/05/23 08:34 oxycodone [From PERCOCET] Allergy Intermediate NAUSEA Verified 06/05/23 08:34 VOMITING DIZZYNESS Review of Systems Sugical H&P ROS: Negative: Constitution, Cardiovascular, Respiratory, Neurological, Psychiatric, Hem-Onc, Allergic/Immunologic, Gastrointestinal, Genitourinary, Musculoskeletal, Integumentary, Endocrine and Eyes/Ears/Nose/Throat Exam Surgical H&P Exam: Normal: HEENT, Normal: Heart, Normal: Lungs, Normal: Extremities, Normal: Abdomen, Normal: Skin and Normal: Neurological Plan Diagnosis/Plan: Unchanged I have reviewed the history and physical and performed a pertinent physical examination on my patient. No changes have occurred unless specified. Time Spent With Patient Time: Total time managing care of this patient today ____ minutes.
[2023-09-12 07:11] VITALS: BP 127/88; PULSE 62; RESP 18; TEMP 36.2; O2SAT 100; BMI 31.2
--- NOTE | 2023-09-12 08:16 | W.PM.OPN ---
Operative Note Operative Note Date of Service: 09/12/23 Narrative: Operative Information Procedure Description: Colonoscopy Indication: screening Anesthesia: MAC COLONOSCOPY Instrument: Olympus variable stiffness pediatric scope 190L Colonoscopy Monitoring: Vital signs and clinical assessment, continuous EKG monitoring, Pulse oximetry, Carbon Dioxide monitoring and blood pressure monitoring were done throughout the procedure. Colon withdrawal time was 8 minutes. Procedure: The patient was placed in the left lateral decubitis position and pre-procedure medications were administered. After a digital rectal examination of the ano-rectum, the video colonoscope was inserted into the rectum and advanced through the colon to the cecum/TI. The colonoscope was slowly withdrawn in a retrograde panoramic fashion and the colon mucosa was carefully examined including a retroflexed view of the rectum. Findings and interventions are described below. Procedure Difficulty: easy Findings: Terminal Ileum-normal Melanosis coli noted zach sigmoid colon Cecum:normal Ascending Colon: normal Transverse Colon -normal Descending Colon:normal Sigmoid Colon: mild diverticulosis, 7-8 mm sessile polyp removed with cold snare Rectum: Retroflexion with small internal hemorrhoids, grade I Anorectum - normal Colon preparation: [place] Bowel Preparation Scale Right colon; 2 Transverse colon: 2 Left colon; 2 (0 = Unprepared colon segment with mucosa not seen due to solid stool that cannot be cleared. 1 = Portion of mucosa of the colon segment seen, but other areas of the colon segment not well seen due to staining, residual stool and/or opaque liquid. 2 = Minor amount of residual staining, small fragments of stool and/or opaque liquid, but mucosa of colon segment seen well. 3 = Entire mucosa of colon segment seen well with no residual staining, small fragments of stool or opaque liquid) Impression and Post Procedure Diagnosis: polyps internal hemorrhoids diverticular disease melanosis coli Plan: High fiber diet leaflet Avoid straining at stool, epsom salts and sitz bath, anusol supps or cream Repeat Colonoscopy in 5-7 years if adenomatous polyp, 10 yrs if hyperplastic or earlier if clinically indicated Above findings were reviewed with the patient and relevant handouts were provided if indicated.
[2023-09-12 08:48] VITALS: BP 105/55; PULSE 68; RESP 16; TEMP 36.4; O2SAT 98
[2023-09-12 09:03] VITALS: BP 135/60; PULSE 56; RESP 16; TEMP 36.4; O2SAT 100
== END 2023-09-12 09:40 | disposition home or self-care (01) ==
PROVIDERS: PCP Student in an Organized Health Care Education/Training Program; Visit Provider Internal Medicine Gastroenterology
PROC: 0DJD8ZZ Inspection of Lower Intestinal Tract, Via Natural or Artificial Opening Endoscopic (ICD-10-PCS; CPT 45378; principal; 2023-09-12 08:10)
DX: Z12.11 Encounter for screening for malignant neoplasm of colon (principal); D12.5 Benign neoplasm of sigmoid colon; K64.0 First degree hemorrhoids; K57.30 Diverticulosis of large intestine without perforation or abscess without bleeding; K63.89 Other specified diseases of intestine; J45.909 Unspecified asthma, uncomplicated; M15.9 Polyosteoarthritis, unspecified; B20 Human immunodeficiency virus [HIV] disease; F32.A Depression, unspecified; Z88.5 Allergy status to narcotic agent; Z88.8 Allergy status to other drugs, medicaments and biological substances; Z79.899 Other long term (current) drug therapy
CPT/HCPCS: 45385; 88305

== ENCOUNTER → 2023-09-12 06:31 | Outpatient (BNV) | payer OTHER, SELFPAY | PROVIDERS: PCP Student in an Organized Health Care Education/Training Program; Visit Provider Internal Medicine Gastroenterology | DX: Z12.11 Encounter for screening for malignant neoplasm of colon (principal); D12.5 Benign neoplasm of sigmoid colon; K63.89 Other specified diseases of intestine; K57.30 Diverticulosis of large intestine without perforation or abscess without bleeding | CPT/HCPCS: 45385 ==

== ENCOUNTER 2023-09-24 18:35 | Emergency (ER) | payer OTHER, SELFPAY ==
--- NOTE | ~2023-09-24 | CT_ITS ---
EXAMINATION: CT ABDOMEN AND PELVIS WITH CONTRAST CLINICAL INFORMATION: Periumbilical pain. Tenderness. Nausea/vomiting. COMPARISON: None available. TECHNIQUE: Multidetector volumetric images were obtained from the superior aspect of the liver through the pubic symphysis following administration 85 mL of Omnipaque 350 intravenous contrast. Sagittal and coronal reformatted images were obtained on the technologist's workstation. Oral contrast: No This CT examination was performed using dose optimization techniques as appropriate, variously including the following: *Automated exposure control *Adjustment of mA and/or kV according to patient size (this includes techniques or standardized protocols for targeted exams where dose is matched to indication/reason for exam; i.e. extremities or head) *Use of iterative reconstruction technique DLP: 626 mGy-cm FINDINGS: LUNG BASES: The visualized lung bases are unremarkable. LIVER, GALLBLADDER, AND BILIARY TREE: The liver is normal in size, shape, and attenuation. No focal hepatic lesion or biliary ductal dilatation is present. The gallbladder is unremarkable with no evidence of radiopaque gallstones, gallbladder wall thickening, or obvious pericholecystic inflammatory changes. PANCREAS: Unremarkable. SPLEEN: Unremarkable. ADRENAL GLANDS: Unremarkable. KIDNEYS AND URETERS: The kidneys are normal in size, shape, and attenuation. No hydronephrosis, hydroureter, or calculi seen. Small subcentimeter focus of cortical hypoattenuation in the left kidney is too small to characterize, though statistically favored to correspond to a simple cyst. No recommended imaging follow-up. No perinephric stranding. BLADDER: Unremarkable. GASTROINTESTINAL TRACT: Stomach, small bowel, and colon are normal in caliber. No bowel wall thickening or surrounding inflammatory changes. Appendix is normal. No intraperitoneal free fluid or free air. Tiny sliding-type hiatal hernia. Fluid in the distal esophagus may be due to reflux or dysmotility. There is fluid throughout the colon with associated air-fluid levels, indicative of liquid stool. ABDOMINAL WALL: No significant hernia is appreciated. LYMPH NODES: Normal. VASCULAR: Unremarkable. PELVIC VISCERA: The uterus and adnexa are unremarkable. OSSEOUS STRUCTURES: No fracture or malalignment. There is mild multilevel degenerative disc disease lumbar spine. Prominent facet arthropathy is noted in the lower lumbar spine at L4-L5 and L5-S1. Severe central canal stenosis is suspected at L4-L5 due to a disc bulge, ligamentum thickening, and and facet arthropathy. Osteoarthritis is present in both hips. [id number] osseous pubis. CT/CT abdomen pelvis w IV con IMPRESSION: 1. No acute intra-abdominal or intrapelvic abnormalities. Normal appendix. 2. Liquid stool throughout the colon, indicative of diarrhea. No evidence of colitis. 3. Tiny sliding-type hiatal hernia. Fluid in the distal esophagus may be due to reflux or dysmotility. 4. Multilevel degenerative spondylosis in the lumbar spine with severe central canal stenosis at L4-L5. Fleischner guidelines were followed.
[2023-09-24 18:44] VITALS: BP 140/86; PULSE 76; O2SAT 97
[2023-09-24 18:52] VITALS: BP 142/55; PULSE 77; RESP 18; TEMP 36.5; O2SAT 99; BMI 32.3
--- NOTE | 2023-09-24 19:11 | PC.NURSE ---
episode of mucous-appearing diarrhea upon arrival. patient cleaned and re-adjusted in the bed.
[2023-09-24 19:54] VITALS: BP 120/62; PULSE 83; RESP 17; TEMP 36.6; O2SAT 100
[2023-09-24 20:00] LABS: MANUAL DIFF FLAG NO
[2023-09-24 20:02] LABS: Basophils Percent Auto 0.3 % (0-2); Eosinophils Percent Auto 0.6 % (0-4); Hematocrit 41.2 % (37.0-47.0); Hemoglobin 13.9 g/dl (12.0-16.0); Imm Gran Abs Auto 0.03 X10*3/uL (0.00-0.03); Imm Gran Pct Auto 0.5 % (0.0-0.4); Lymphocytes Absolute Auto 0.4 X10*3/uL (1.2-4.9); Lymphocytes Percent Auto 6.2 % (20-40); Mean Corpuscular HGB Conc 33.7 g/dl (31.0-35.0); Mean Corpuscular Hemoglobin 32.3 pg (27.0-33.0); Mean Corpuscular Volume 95.6 fL (80.0-98.0); Mean Platelet Volume 9.8 fL (9.4-12.3); Monocytes Absolute Auto 0.3 X10*3/uL (0.1-1.2); Monocytes Percent Auto 4.5 % (2-11); Neutrophils Absolute Auto 5.8 x10*3/uL (2.0-8.3); Neutrophils Percent Auto 87.9 % (45-73); Platelet Count 229 X10*3/uL (160-400); Red Blood Count 4.31 X10*6/uL (4.20-5.50); Red Cell Distribution Width 12.2 % (11.0-16.0); White Blood Count 6.6 X10*3/uL (4.8-10.8)
[2023-09-24 20:13] LABS: Lactic Acid 1.3 mmol/L (0.5-2.0)
[2023-09-24] MEDS: 0.9 % Sodium Chloride 1,000 ML 999 ML IV (20:15)
[2023-09-24] MEDS: Lidocaine HCl Viscous 2 % 15 ML SOLUTION MUCOUS MEM (20:15)
[2023-09-24] MEDS: Magnesium Hydrox/Alum Hydrox 30 ML ORAL.SUSP PO (20:15)
[2023-09-24] MEDS: ondansetron HCL 4 MG/2 ML VIAL IVPUSH (20:15)
[2023-09-24] MEDS: Famotidine 20 MG TABLET PO (20:15)
[2023-09-24 20:21] LABS: Alanine Aminotransferase 16 U/L (0-31); Albumin Level 4.3 g/dL (3.5-5.0); Alkaline Phosphatase 63 U/L (39-117); Anion Gap 16 (12-20); Aspartate Amino Transferase 28 U/L (5-31); Bilirubin Total 0.6 mg/dL (0.0-1.0); Blood Urea Nitrogen 20 mg/dL (9-16); Calcium 9.3 mg/dL (8.4-10.2); Carbon Dioxide 19 mmol/L (22-29); Chloride 107 mmol/L (96-108); Creatinine Clr Calc Pharmacy 60.5; Estimated Glomerular Filt Rate > 60; Glucose Random 167 mg/dL (60-115); Potassium 3.7 mmol/L (3.3-5.1); Sodium 138 mmol/L (135-145); Total Protein 8.3 g/dL (6.5-8.0)
[2023-09-24 20:22] LABS: COVID-19 Test Negative (Negative); IDNOW Serial# 6674DD1D
[2023-09-24 20:23] LABS: IDNOW Serial# 08D9AD1C; Influenza A Negative (Negative); Influenza B2 Negative (Negative)
[2023-09-24 20:28] LABS: Lipase 30 U/L (8-78)
--- NOTE | 2023-09-24 20:51 | ED_ITS ---
HPI - Abdominal Pain General Chief Complaint: Abdominal Pain Stated Complaint: ABD PAIN, NAUSEA, VOMITING Time Seen by Provider: 09/24/23 18:52 Source: patient Mode of arrival: ambulatory Limitations: language barrier History of Present Illness HPI narrative: Patient is a 63-year-old female who presents to the emergency department for evaluation of periumbilical and diffuse lower abdominal pain with associated nausea, multiple episodes of bilious vomiting, and diarrhea since yesterday. She states that this began yesterday evening. She is unable to tolerate oral intake without vomiting. She denies any known sick contacts. She denies fevers, chills, URI symptoms, chest pain, shortness of breath difficulty breathing, hematochezia, melena, urinary frequency/urgency/hesitancy, hematuria, dysuria, numbness or tingling of the extremities, weakness. Related Data Home Medications Medication Instructions Recorded Confirmed cholecalciferol (vitamin D3) 25 25 mcg PO DAILY 09/18/20 04/08/22 mcg (1,000 unit) capsule emtricitabine 200 mg-rilpivirine 1 tab PO DAILY 09/18/20 04/08/22 25 mg-tenofovir alafenam 25 mg tablet (Odefsey) wbayuuzriwlx-[id number]-[id number] 1 tab PO DAILY 09/18/20 04/08/22 tablet (Cerovite Senior) tramadol 50 mg tablet 50 mg PO Q8H PRN 09/18/20 04/08/22 vitamin B complex (B 1 tab PO DAILY 09/18/20 04/08/22 Complex-Vitamin B12 tablet) cyanocobalamin (vitamin B-12) 1,000 mcg PO DAILY 03/23/23 1,000 mcg tablet Previous Rx's Medication Instructions Recorded acetaminophen 650 mg 650 mg PO Q8H PRN for pain #90 tabs 07/14/21 tablet,extended release bisacodyl 5 mg tablet,delayed 10 mg (2 x 5 mg) PO ONCE 1 day #2 09/30/22 release (Dulcolax (bisacodyl)) tabs hydrocortisone 2.5 % topical cream 1 appl CA BID-QID PRN hemorrhoids 09/30/22 with perineal applicator #30 grams (Proctosol HC) aluminum-mag hydroxide-simethicone 10 ml PO QID PRN indigestion 09/24/23 200 mg-200 mg-20 mg/5 mL oral susp #3,000 mL (Maalox Advanced) famotidine 20 mg tablet 20 mg PO DAILY #14 tabs 09/24/23 Allergies Allergy/AdvReac Type Severity Reaction Status Date / Time efavirenz [From Sustiva] Allergy Severe NIGHTMARES Verified 06/05/23 08:34 oxycodone [From PERCOCET] Allergy Intermediate NAUSEA Verified 06/05/23 08:34 VOMITING DIZZYNESS Review of Systems Review of Systems Yes all other systems are reviewed and are negative [facility] Past Medical History Attestation statement: The following information was validated with the patient. Source: old records reviewed Medical History Depression Asthma Primary osteoarthritis involving multiple joints Surgical History H/O tubal ligation Family History Family History Father No problems noted. Mother No problems noted. Social History Social History Household Members: None Housing: Apartment Alcohol intake: never Patient Tobacco Use Status: Never used Tobacco Smoked in Last 30 Days: No Use of substances other than those prescribed or required for medical reasons: No Advance Directives: No Patient : No Current occupational status: disabled Sexual orientation: Straight/Heterosexual Gender identity: Female Physical Exam ED Vital Signs: Vital Signs - 24 hr 09/24/23 18:52 09/24/23 19:54 Temperature 97.7 F 97.9 F Pulse Rate 77 83 Respiratory Rate 18 17 Blood Pressure 142/55 H 120/62 Pulse Oximetry 99 100 Oxygen Delivery Method Room Air Room Air BMI result Body Mass Index 32.3 Appearance: Alert.?Oriented to person, place and time. No acute distress.?Normal affect. Eyes: Pupils equal, round and reactive to light.? ENT: Pharynx normal.?? Neck: Normal inspection.? Neck supple.?? CVS: Heart sounds normal. Normal heart rate and rhythm.? Pulses normal.?? Respiratory: No respiratory distress.? Lung sounds clear to auscultation bilaterally?? Abdomen: Soft periumbilical in diffuse lower abdominal tenderness upon palpation. No rigidity. No guarding. No rebound tenderness. Negative Ta sign. Normoactive bowel sounds. No pulsatile mass.?? Skin: Skin warm and dry.? Normal skin color.? ?? Extremities: No lower extremity edema.? No calf ttp? Neuro: Moves all extremities spontaneously. Sensation intact bilaterally. Ambulates with normal steady gait. Course Reevaluation(s) Reevaluation #1: Urinalysis slightly consistent with urogenital contamination, no urine bacteria seen, and no urinary symptoms. COVID-19 and influenza testing are negative. CT of the abdomen and pelvis without acute intra-abdominal pathology, liquid stool throughout the colon but no evidence of colitis, fluid in the distal esophagus screening secondary to reflux. I reviewed these findings with patient and her daughter. After receiving Zofran and GI cocktail she reports resolution of her symptoms. Tolerating oral intake. Symptoms most consistent with likely a gastritis and/or reflux. At this time feel that she is stable for discharge home outpatient follow-up with her primary care provider. Discussed worrisome signs and symptoms that would warrant re-evaluation emergency department. All questions answered. Time: 23:41 Medical Decision Making Medical Decision Making MDM Narrative: Patient is a 63-year-old female with past medical history of osteoarthritis, asthma, depression, cervical dysplasia and HPV presenting to emergency department for evaluation of nausea vomiting diarrhea and abdominal pain as per HPI. At the time my examination she appears uncomfortable, has tenderness to the periumbilical region and diffuse lower abdomen. She is afebrile, without tachycardia tachypnea or hypoxia. No active vomiting at the time of my examination. She denies recent use of antibiotics within the past 3 months or recent hospitalization, no recent travel or sick contacts. Will obtain CBC to evaluate for leukocytosis/ anemia, CMP and lipase to evaluate for abnormal electrolytes /abnormal renal function/ abnormal hepatic/biliary function, CT of the abdomen and pelvis and Urinalysis and viral studies. Will trial pain management with GI cocktail in addition to Zofran IV for nausea vomiting and L normal saline Differential Diagnosis Differential Diagnoses: The differential diagnosis associated with the presentation includes (Gastritis, PUD, cholecystitis, cholelithiasis, colitis, obstruction, diverticulitis, appendicitis, urinary tract infection, pyelonephritis, obstructive calculi) Admission/Observation Consideration of admission/observation: Escalation of care including admission/observation considered (I considered admission for abdominal pain, see course narrative for further detail) Lab Data MDM Lab Attestation statement: I reviewed the patient's lab results. CBC is without leukocytosis or anemia. CMP is overall unremarkable, BUN mildly elevated at 20 I suspect this is likely due to dehydration. LFTs lipase within normal limits. COVID-19 and influenza testing negative. 09/24/23 19:45 09/24/23 19:45 Labs: Lab Results 09/24/23 09/24/23 09/24/23 Range/Units 19:45 19:47 22:07 WBC 6.6 (4.8-10.8) X10*3/uL RBC 4.31 (4.20-5.50) X10*6/uL Hgb 13.9 (12.0-16.0) g/dl Hct 41.2 (37.0-47.0) % MCV 95.6 (80.0-98.0) fL MCH 32.3 (27.0-33.0) pg MCHC 33.7 (31.0-35.0) g/dl RDW 12.2 (11.0-16.0) % Plt Count 229 (160-400) X10*3/uL MPV 9.8 (9.4-12.3) fL Immature Gran % (Auto) 0.5 H (0.0-0.4) % Neut % (Auto) 87.9 H (45-73) % Lymph % (Auto) 6.2 L (20-40) % [place] % (Auto) 4.5 (2-11) % Eos % (Auto) 0.6 (0-4) % Baso % (Auto) 0.3 (0-2) % Lymph # (Auto) 0.4 L (1.2-4.9) X10*3/uL [place] # (Auto) 0.3 (0.1-1.2) X10*3/uL Eos # (Auto) 0.0 (0.0-0.4) X10*3/uL Baso # (Auto) 0.0 (0.0-0.2) X10*3/uL Abs Immat Gran (auto) 0.03 (0.00-0.03) X10*3/uL Absolute Neuts (auto) 5.8 (2.0-8.3) x10*3/uL Absolute Nucleated RBC 0.000 (0.0-0.012) X10*3/uL Nucleated RBC % (auto) 0.0 (0.0-0.2) /100WBC Sodium 138 (135-145) mmol/L Potassium 3.7 (3.3-5.1) mmol/L Chloride 107 (96-108) mmol/L Carbon Dioxide 19 L (22-29) mmol/L Anion Gap 16 (12-20) BUN 20 H (9-16) mg/dL Creatinine 0.86 (0.5-1.4) mg/dL Estim Creat Clear Calc 60.5 Estimated GFR > 60 Random Glucose 167 H (60-115) mg/dL Lactic Acid 1.3 (0.5-2.0) mmol/L Calcium 9.3 (8.4-10.2) mg/dL Total Bilirubin 0.6 (0.0-1.0) mg/dL AST 28 (5-31) U/L ALT 16 (0-31) U/L Alkaline Phosphatase 63 (39-117) U/L Total Protein 8.3 H (6.5-8.0) g/dL Albumin 4.3 (3.5-5.0) g/dL Lipase 30 (8-78) U/L Urine Color Yellow Urine Appearance Clear Urine pH 5.0 (5.0-9.0) Ur Specific [place] >= 1.030 H (1.005-1.025) Urine Protein Negative (Neg-Trace) mg/dL Urine Glucose (UA) Negative (Negative) mg/dL Urine Ketones 15 (Negative) mg/dL Urine Blood Negative (Negative) Urine Nitrite Negative (Negative) Ur Leukocyte Esterase Small (1+) H (Negative) Urine RBC 0-2 (0-2) /HPF Urine WBC 6-10 H (0-5) /HPF Ur Squamous Epith Cells 3-5 (0-2) /HPF Urine Bacteria None Seen (None Seen) Hyaline Casts 0-2 (0-2) /LPF COVID-19 (FARTUN) Negative (Negative) COVID-19 Clin Com See Note Influenza Type A (LEONOR) Negative (Negative) Influenza Type B (LEONOR) Negative (Negative) Influenza A & B Note See Note Independent Interpretation I performed an independent interpretation of an: CT Scan Radiology Impression Discussion of test interpretation with radiology: I have reviewed the radiologist's reading. Radiologist Impression: CT/CT abdomen pelvis w IV con IMPRESSION: 1. No acute intra-abdominal or intrapelvic abnormalities. Normal appendix. 2. Liquid stool throughout the colon, indicative of diarrhea. No evidence of colitis. 3. Tiny sliding-type hiatal hernia. Fluid in the distal esophagus may be due to reflux or dysmotility. 4. Multilevel degenerative spondylosis in the lumbar spine with severe central canal stenosis at L4-L5. Independent Historian Clinical information obtained from an independent historian. History obtained from or confirmed by: Other (Daughter present at bedside a confirms history) External Record Review External record reviewed: Outpatient record and Prior outpatient labs Medications Administered Discontinued Medications Generic Name Dose Route Start Last Admin Trade Name Freq PRN Reason Stop Dose Admin Al Hydroxide/Mg Hydroxide 30 ml 09/24/23 20:00 09/24/23 20:15 Magnesium Hydrox/Alum Hydrox 30 Ml Oral.Susp PO 09/24/23 20:01 30 ml ONCE ONE Administration Famotidine 20 mg 09/24/23 20:00 09/24/23 20:15 Famotidine 20 Mg Tablet PO 09/24/23 20:01 20 mg ONCE ONE Administration Sodium Chloride 1,000 mls @ 999 mls/hr 09/24/23 20:00 09/24/23 21:22 Ns IV 09/24/23 21:00 Infused .Q1H1M SARAH Infusion Iohexol 100 ml 09/24/23 21:23 09/24/23 21:24 Iohexol 350 Mg/Ml 100 Ml Infus..Btl IV 09/24/23 21:24 85 ml ONCE ONE Administration Lidocaine HCl 15 ml 09/24/23 20:00 09/24/23 20:15 Lidocaine Hcl Viscous 2 % 15 Ml Solution MUCOUS MEM 09/24/23 20:01 15 ml ONCE ONE Administration Ondansetron HCl 4 mg 09/24/23 20:00 09/24/23 20:15 Ondansetron Hcl 4 Mg/2 Ml Vial IVPUSH 09/24/23 20:01 4 mg ONCE ONE Administration Discharge Plan Discharge Clinical Impression: Gastroenteritis Patient Disposition: Home, Self-Care Instructions: Gastroenteritis (ED) Additional Instructions: As discussed, your blood work and CT scan today were normal. This is very reassuring have improvement in her symptoms after receiving the medication today. Her symptoms are most likely consistent with acid reflux, or a stomach bug. Drink clear fluids per next 2 days and slowly advance a bland diet. I ntroduce a bland diet including crackers, bananas, rice, soup, toast, and boiled vegetables. This may progress to plain baked or boiled chicken or turkey. Avoid dairy products or foods high in fat or grease. I have sent prescriptions to your pharmacy to help with your symptoms. Please contact your primary care provider and arrange for a follow-up visit within 3 days. You may return back to emergency department any new or worsening symptoms or concerns. Prescriptions: New alum-mag hydroxide-simeth [Maalox Advanced] 200-200-20 mg/5 mL suspension 10 ml PO QID PRN (Reason: indigestion) Qty: 3000 0RF Rx Instructions: administer between meals and at bedtime famotidine 20 mg tablet 20 mg PO DAILY Qty: 14 0RF No Action acetaminophen 650 mg tablet extended release 650 mg PO Q8H PRN (Reason: for pain) Qty: 90 2RF tramadol 50 mg tablet 50 mg PO Q8H PRN vitamin B complex [B Complex-Vitamin B12] Tablet 1 tab PO DAILY cholecalciferol (vitamin D3) 25 mcg (1,000 unit) capsule 25 mcg PO DAILY Odefsey 200-25-25 mg tablet 1 tab PO DAILY Rx Instructions: must administer with a meal/food Cerovite Senior Tablet 1 tab PO DAILY bisacodyl [Dulcolax (bisacodyl)] 5 mg tablet,delayed release (DR/EC) 10 mg PO ONCE 1 Days Qty: 2 0RF Rx Instructions: take 2 tabs at noon the day before your colonoscopy hydrocortisone [Proctosol HC] 2.5 % cream with perineal applicator 1 appl CA BID-QID PRN (Reason: hemorrhoids) Qty: 30 2RF cyanocobalamin (vitamin B-12) 1,000 mcg tablet 1,000 mcg PO DAILY Referrals: [facility] [Primary Care Provider] -
[2023-09-24] MEDS: iohexoL 350 MG/ML 100 ML INFUS..BTL IV (21:24)
[2023-09-24 22:15] LABS: Appearance Urine Clear; Color Urine Yellow; Glucose Urine UA Negative (Negative); Leukocyte Esterase Urine Small (1+) (Negative); Nitrite Urine Negative (Negative); Specific Gravity - Urine >= 1.030 (1.005-1.025); UMIC TRIGGER UACC YES; Urine Blood Negative (Negative); Urine Ketones 15 mg/dL (Negative); Urine Protein Negative (Neg-Trace)
[2023-09-24 22:17] LABS: Bacteria Urine None Seen (None Seen); Hyaline Casts Urine 0-2 /LPF (0-2); RBC Urine 0-2 /HPF (0-2); UACC Culture Trigger YES
--- NOTE | 2023-09-24 23:36 | PC.NURSE ---
pt assessed, oob to the bathroom, gait steady
== END 2023-09-25 00:24 | disposition home or self-care (01) ==
PROVIDERS: Nurse Practitioner Family; Emergency Provider Internal Medicine
DX: K52.9 Noninfective gastroenteritis and colitis, unspecified (principal); R11.2 Nausea with vomiting, unspecified; Z11.52 Encounter for screening for COVID-19; Z20.822 Contact with and (suspected) exposure to COVID-19; Z79.899 Other long term (current) drug therapy
CPT/HCPCS: 74177; 80053; 81001; 83605; 83690; 85025; 87086; 87502; 87635; 99284; 99285; J2405; Q9967

== ENCOUNTER 2023-09-26 09:52 | Outpatient (AMB) | payer OTHER, SELFPAY ==
--- NOTE | 2023-09-26 10:02 | A.OFFVIS_ITS ---
Intake Vital Signs 09/26/23 10:06 Height 5 ft Weight 160 lb 14.999 oz BMI 31.4 BP 117/63 Blood Pressure Location Lt brachial Position Sitting Pulse 65 Intake Visit Reasons: S/P Screening; Dr. Gale Intake Note: Ratna presents in the office as a follow up colonoscopy. CC: She states that after the colonoscopy she was in the ED for nausea, diarrhea and vomitting and was admitted for dehydration. She states that she still has a lot of gas with stomach pains. She is still having a little diarrhea. Staff Engineer Required: Yes Staff Engineer Name: [id number] Allergies efavirenz [From Sustiva] Allergy (Severe, Verified 09/26/23 10:06) NIGHTMARES oxycodone [From PERCOCET] Allergy (Intermediate, Verified 09/26/23 10:06) NAUSEA VOMITING DIZZYNESS HPI S/P Screening; Dr. Gale HPI Details LAST VISIT Colon cancer screening What to expect before during and after the procedure discussed with patient. Patient states that she has her prep at home. Patient will do split MiraLax prep. Dulcolax at noon day before the procedure and MiraLax at 17:00 and 22:00. Patient will be booked for the procedure today and I will see her after the procedure. She is agreeable to this plan and verbalizes understanding of instructions. She was given the opportunity to ask questions and all questions answered. COLONOSCOPY Findings: Terminal Ileum-normal Melanosis coli noted zach sigmoid colon Cecum:normal Ascending Colon: normal Transverse Colon -normal Descending Colon:normal Sigmoid Colon: mild diverticulosis, 7-8 mm sessile polyp removed with cold snare Rectum: Retroflexion with small internal hemorrhoids, grade I Anorectum - normal Colon preparation: [place] Bowel Preparation Scale Right colon; 2 Transverse colon: 2 Left colon; 2 (0 = Unprepared colon segment with mucos a not seen due to solid stool that cannot be cleared. 1 = Portion of mucosa of the colon segme nt seen, but other areas of the colon segment not well seen due to staining, residual stool and/or opaque liquid. 2 = Minor amount of residual staining, s mall fragments of stool and/or opaque liquid, but mucosa of colon segment seen well. 3 = Entire mucosa of colon segment seen well with no residual staining, small fragments of stool or opaque liquid) Impression and Post Procedure Diagnosis: polyps internal hemorrhoids diverticular disease melanosis coli Plan: High fiber diet leaflet Avoid straining at stool, epsom salts and sitz bath, anusol supps or cream Repeat Colonoscopy in 5-7 years if adenomatous polyp, 10 yrs if hyperplastic or earlier if clinically indicated PATHOLOGY RESULTS Diagnosis Colon, sigmoid, polyp: Fragmented colonic mucosa with a minute focus of tubular adenoma, and pigmented lamina propria macrophages consistent with melanosis coli; negative for high-grade dysplasia and carcinoma TODAY'S VISIT: Patient is here today for follow-up. Patient had colonoscopy last week, 2 days after patient started feeling nauseous. Patient was vomiting and had diarrhea. Was seen in the ER. No acute findings with labs and CT scan. Colonoscopy results discussed with patient. 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 Patient denies taking any laxatives. Today patient reports that she has been feeling little better. Reports epigastric discomfort. Denies any nausea or vomiting. Reports acid reflux with dyspepsia without dysphagia or odynophagia. Patient denies melena, hematochezia, unintentional weight loss or ribbon like stools. Patient reports that she is having loose stools, however she admits to being constipated couple times a week [facility] Medical History (Updated 09/26/23 @ 10:41 by Liza Mendoza [facility]) Tubular adenoma Depression Asthma Primary osteoarthritis involving multiple joints Surgical History (Updated 09/26/23 @ 10:06 by EVON Temple) Hx of colonoscopy H/O tubal ligation Family History Father No problems noted. Mother No problems noted. Social History Household Members: None Housing: Apartment Alcohol intake: never Patient Tobacco Use Status: Never used Tobacco Current occupational status: disabled Sexual orientation: Straight/Heterosexual Gender identity: Female Female Reproductive History Menstrual Age of Menarche: 12 Review of Systems Const Denies weight gain and Denies weight loss ENT Reports no additional complaints, Denies dysphagia and Denies odynophagia Card Reports no additional complaints Resp Reports no additional complaints GI Reports abdominal pain, Denies belching, Denies melena, Reports bloating, Denies change in bowel habits, Reports constipation, Denies dysphagia, Denies excessive flatus, Denies dyspepsia, Reports heartburn, Denies diarrhea, Reports loose stools, Denies nausea, Denies odynophagia and Denies vomiting Reports no additional complaints Musc Reports no additional complaints Neuro Reports no additional complaints Psych Reports no additional complaints Endo Reports no additional complaints Physical Exam Vital Signs: Last Vital Signs Pulse 65 09/26/23 10:06 BP 117/63 09/26/23 10:06 BMI result Body Mass Index 31.4 Const General: healthy appearing, no acute distress and well developed Nutritional Appearance: obese Orientation/consciousness: patient oriented x3 HEENT Head: Yes normal to inspection, Yes normocephalic and Yes atraumatic Face and sinus: Yes normal facial exam Mouth: Normal oral and palatal mucosa present Throat: Yes posterior oropharynx normal, Yes tonsils normal and Yes uvula midline Eyes General: appearance normal, both eyes and all related structures Neck Neck: Yes normal visual inspection, Yes full ROM and Yes trachea midline Thyroid: Thyroid normal Resp Effort & Inspection: normal respiratory effort, able to speak in complete sentences, no tracheal deviation and symmetric chest movement Auscultation: clear to auscultation bilaterally Cardio Rate: regular rate Heart sounds: S1 normal heart sound present and S2 normal heart sound present GI Inspection: Yes normal to inspection, No distended and Yes obesity Palpation (GI): Soft to palpation, not firm, nontender and No hepatosplenomegaly present Auscultation: normal bowel sounds General: Yes no CVA tenderness Back/Spine/Pelvis Back: no CVA tenderness Skin General skin exam: elasticity normal, turgor normal and dry skin Neuro General: patient oriented x3 Psych Appearance: grossly normal Mental Status: mental status grossly normal Affect: normal affect Results Reviewed Results Reviewed: ABDOMINAL CT SCAN 09/24/2023 IMPRESSION: 1. No acute intra-abdominal or intrapelvic abnormalities. Normal appendix. 2. Liquid stool throughout the colon, indicative of diarrhea. No evidence of colitis. 3. Tiny sliding-type hiatal hernia. Fluid in the distal esophagus may be due to reflux or dysmotility. 4. Multilevel degenerative spondylosis in the lumbar spine with severe central canal stenosis at L4-L5. Assessment & Plan Assessment & Plan (1) Tubular adenoma: Code(s): D36.9 - Benign neoplasm, unspecified site (2) GERD (gastroesophageal reflux disease): Code(s): K21.9 - Gastro-esophageal reflux disease without esophagitis Qualifiers: Esophagitis presence: esophagitis presence not specified Qualified Code(s): K21.9 - Gastro-esophageal reflux disease without esophagitis (3) Diarrhea: Code(s): R19.7 - Diarrhea, unspecified Qualifiers: Diarrhea type: functional diarrhea Qualified Code(s): K59.1 - Functional diarrhea (4) Chronic idiopathic constipation: Code(s): K59.04 - Chronic idiopathic constipation (5) IBS (irritable bowel syndrome): Code(s): K58.9 - Irritable bowel syndrome without diarrhea Qualifiers: Irritable bowel syndrome type: with both diarrhea and constipation Qualified Code(s): K58.2 - Mixed irritable bowel syndrome Plan Colonoscopy results discussed with patient. 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 Patient has loose stools and constipation. Will start her on Citrucel to help her bulk her stools and patient will take Colace in the evening. Patient also reports acid reflux and dyspepsia. Patient can stay taking pantoprazole daily. Patient was encouraged to avoid dietary triggers and bedtime snacking. Staying upright for minimum 3 hours after meals discussed with patient. Patient will return in 5 weeks, sooner on as needed basis. She is agreeable to this plan and verbalizes understanding of instructions. She was given the opportunity to ask questions and all questions answered. Thank you for allowing me to participate in her care Medications: New pantoprazole take one tablet half an hour before breakfast 40 mg PO DAILY 30 tabs 2RF K21.9 - Gastro-esophageal reflux disease without esophagitis docusate sodium 100 mg PO DAILY 30 caps 3RF K59.00 - Constipation, unspecified methylcellulose (laxative) (Citrucel) 500 mg PO DAILY 30 tabs 2RF K59.00 - Constipation, unspecified Coding Level of Care Code Est Pt Level 4 (70376) Diagnoses Tubular adenoma D36.9 Gastroesophageal reflux disease, unspecified whether esophagitis present K21.9 Esophagitis presence: esophagitis presence not specified Functional diarrhea K59.1 Diarrhea type: functional diarrhea Chronic idiopathic constipation K59.04 Irritable bowel syndrome with both constipation and diarrhea K58.2 Irritable bowel syndrome type: with both diarrhea and constipation Time Spent (min) 35 Comment 20 minutes spent with patient and additional 15 minutes spent reviewing her records
[2023-09-26 10:06] VITALS: BP 117/63; PULSE 65; BMI 31.4
== END 2023-09-26 10:41 | disposition home or self-care (01) ==
PROVIDERS: PCP Registered Nurse; Visit Provider Nurse Practitioner Family
DX: D36.9 Benign neoplasm, unspecified site (principal); K21.9 Gastro-esophageal reflux disease without esophagitis; K59.1 Functional diarrhea; K59.04 Chronic idiopathic constipation; K58.2 Mixed irritable bowel syndrome
CPT/HCPCS: 99214

== ENCOUNTER → 2023-09-26 09:52 | Outpatient (BNVA) | payer OTHER, SELFPAY | PROVIDERS: PCP Registered Nurse; Visit Provider Nurse Practitioner Family | DX: K21.9 Gastro-esophageal reflux disease without esophagitis (principal); K59.1 Functional diarrhea; K59.04 Chronic idiopathic constipation; K58.2 Mixed irritable bowel syndrome; D36.9 Benign neoplasm, unspecified site | CPT/HCPCS: 99212 ==

== ENCOUNTER 2023-09-29 13:48 | Outpatient (AMB) | payer OTHER, SELFPAY ==
[2023-09-29 13:55] VITALS: BP 118/64; PULSE 70; TEMP 36.2; O2SAT 100; BMI 32.4
--- NOTE | 2023-09-29 13:55 | A.OFFVIS_ITS ---
Intake Vital Signs 09/29/23 13:55 Height 5 ft Weight 165 lb 12.602 oz BMI 32.4 BP 118/64 Blood Pressure Location Rt brachial Position Sitting Pulse 70 Pulse Source Pulse Oximeter Temp 97.2 F Temp Source Skin Pulse Oximetry (%) 100 Intake Visit Reasons: Arthralgia Intake Note: Patient presents today to follow up on arthralgia. Last seen- 04/07/21 [employer] Sales Representative Required: Yes Jewelry Sales Representative Name: Marie Roth Information Interpreted: clinical only Accompanied by: Self / Same As Patient Allergies efavirenz [From Sustiva] Allergy (Severe, Verified 09/29/23 13:58) NIGHTMARES oxycodone [From PERCOCET] Allergy (Intermediate, Verified 09/29/23 13:58) NAUSEA VOMITING DIZZYNESS HPI HPI Comments History of Present Illness Details Ms. Segundo is a 61yoF who presents for evaluation of upper extremity pain, shoulder pain and neck pain. She was last seen in the office February 2022. Patient was sent by her primary care provider for suspicion of PMR, given elevated ESR 55. Patient reports pain in her neck, shoulders, and upper arms. 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 She says that it is different from her normal shoulder pain it started about 2 weeks ago. She does not remember doing any activities that could cause the pain. She says that it is worse at night. She takes Tylenol but it does not help. She uses the toilet okay and has no difficulty standing or sitting on the toilet seat. She denies and if fatigue and tender and to her thighs and buttocks. Patient denies headaches, vision changes, TMJ pain. Prior Visit: She reports left heel pain that is worse with walking. Xray of the left heel April 2021 showed a large heel spur. She states that she is following with podiatry and received injections in the past. She admits to left hip pain for years, pain is intermittent, sharp and is improved with position changes and rest, pain is worse with sitting and walking. She admits to intermittent headaches after having COVID, December 2020. [facility] Medical History (Updated 09/29/23 @ 14:27 by VALDEZ Love) PMR (polymyalgia rheumatica) Tubular adenoma Depression Asthma Primary osteoarthritis involving multiple joints Surgical History (Updated 09/26/23 @ 10:06 by EVON Temple) Hx of colonoscopy H/O tubal ligation Family History Father No problems noted. Mother No problems noted. Social History Household Members: None Housing: Apartment Alcohol intake: never Patient Tobacco Use Status: Never used Tobacco Current occupational status: disabled Sexual orientation: Straight/Heterosexual Gender identity: Female Female Reproductive History Menstrual Age of Menarche: 12 Review of Systems Const All systems reviewed & are unremarkable except as noted in HPI and below Physical Exam Vital Signs: Last Vital Signs Temp 97.2 F 09/29/23 13:55 Pulse 70 09/29/23 13:55 BP 118/64 09/29/23 13:55 Pulse Ox 100 09/29/23 13:55 BMI result Body Mass Index 32.4 APPEARANCE: Patient in no acute distress EYES no redness, pupils equal and reactive to light, eyelids normal EARS: External ear normal HEAD/NECK: No scalp tenderness, jaw pain or weakness. No thyromegaly or masses, no adenopathy, trachea midline. HEART: Regular rhythm, S1-S2 heard, no murmurs, rubs or gallops. LUNG: Clear to auscultation throughout bilaterally, respiratory rate regular non-labored. EXTREMITIES: Marked tenderness on palpation to upper and upper shoulders and biceps. Patient unable to lift arms past 90 degrees without discomfort; arms get fatigue with head, shoulder, knees demonstration. Denies tenderness to thighs on palpation, able to sit and stand without complaint NEURO: Oriented and alert x3. No focal weakness. Gait normal. SKIN: No inflammatory or neoplastic lesions. Normal color and turgor Results Reviewed Results Reviewed: Lab Results 09/24/23 09/24/23 09/24/23 Range/Units 19:45 19:47 22:07 WBC 6.6 (4.8-10.8) X10*3/uL RBC 4.31 (4.20-5.50) X10*6/uL Hgb 13.9 (12.0-16.0) g/dl Hct 41.2 (37.0-47.0) % MCV 95.6 (80.0-98.0) fL MCH 32.3 (27.0-33.0) pg MCHC 33.7 (31.0-35.0) g/dl RDW 12.2 (11.0-16.0) % Plt Count 229 (160-400) X10*3/uL MPV 9.8 (9.4-12.3) fL Immature Gran % (Auto) 0.5 H (0.0-0.4) % Neut % (Auto) 87.9 H (45-73) % Lymph % (Auto) 6.2 L (20-40) % [place] % (Auto) 4.5 (2-11) % Eos % (Auto) 0.6 (0-4) % Baso % (Auto) 0.3 (0-2) % Lymph # (Auto) 0.4 L (1.2-4.9) X10*3/uL [place] # (Auto) 0.3 (0.1-1.2) X10*3/uL Eos # (Auto) 0.0 (0.0-0.4) X10*3/uL Baso # (Auto) 0.0 (0.0-0.2) X10*3/uL Abs Immat Gran (auto) 0.03 (0.00-0.03) X10*3/uL Absolute Neuts (auto) 5.8 (2.0-8.3) x10*3/uL Absolute Nucleated RBC 0.000 (0.0-0.012) X10*3/uL Nucleated RBC % (auto) 0.0 (0.0-0.2) /100WBC Sodium 138 (135-145) mmol/L Potassium 3.7 (3.3-5.1) mmol/L Chloride 107 (96-108) mmol/L Carbon Dioxide 19 L (22-29) mmol/L Anion Gap 16 (12-20) BUN 20 H (9-16) mg/dL Creatinine 0.86 (0.5-1.4) mg/dL Estim Creat Clear Calc 60.5 Estimated GFR > 60 Random Glucose 167 H (60-115) mg/dL Lactic Acid 1.3 (0.5-2.0) mmol/L Calcium 9.3 (8.4-10.2) mg/dL Total Bilirubin 0.6 (0.0-1.0) mg/dL AST 28 (5-31) U/L ALT 16 (0-31) U/L Alkaline Phosphatase 63 (39-117) U/L Total Protein 8.3 H (6.5-8.0) g/dL Albumin 4.3 (3.5-5.0) g/dL Lipase 30 (8-78) U/L Urine Color Yellow Urine Appearance Clear Urine pH 5.0 (5.0-9.0) Ur Specific [place] >= 1.030 H (1.005-1.025) Urine Protein Negative (Neg-Trace) mg/dL Urine Glucose (UA) Negative (Negative) mg/dL Urine Ketones 15 (Negative) mg/dL Urine Blood Negative (Negative) Urine Nitrite Negative (Negative) Ur Leukocyte Esterase Small (1+) H (Negative) Urine RBC 0-2 (0-2) /HPF Urine WBC 6-10 H (0-5) /HPF Ur Squamous Epith Cells 3-5 (0-2) /HPF Urine Bacteria None Seen (None Seen) Hyaline Casts 0-2 (0-2) /LPF COVID-19 (FARTUN) Negative (Negative) COVID-19 Clin Com See Note Influenza Type A (LEONOR) Negative (Negative) Influenza Type B (LEONOR) Negative (Negative) Influenza A & B Note See Note EXAMINATION: CT ABDOMEN AND PELVIS WITH CONTRAST CLINICAL INFORMATION: Periumbilical pain. Tenderness. Nausea/vomiting. Independent Interpretation I performed an independent interpretation of an: CT Scan Radiology Impression Discussion of test interpretation with radiology: I have reviewed the radiologist's reading. Radiologist Impression: CT/CT abdomen pelvis w IV con IMPRESSION: 1. No acute intra-abdominal or intrapelvic abnormalities. Normal appendix. 2. Liquid stool throughout the colon, indicative of diarrhea. No evidence of colitis. 3. Tiny sliding-type hiatal hernia. Fluid in the distal esophagus may be due to reflux or dysmotility. 4. Multilevel degenerative spondylosis in the lumbar spine with severe central canal stenosis at L4-L5. Laboratory Tests 08/29/23 08/29/23 08/29/23 08:48 08:48 09:21 Immature Gran % (Auto) 0.2 Neut % (Auto) 50.7 Lymph % (Auto) 38.1 Lymph # (Auto) 1.8 ESR 55 H Ur Leukocyte Esterase Urine WBC Rheumatoid Factor Cycl Citrul Peptide IgG COVID-19 (FARTUN) Influenza Type A (LEONOR) Influenza Type B (LEONOR) 08/29/23 09/24/23 09/24/23 09:21 19:45 19:45 Immature Gran % (Auto) 0.5 H Neut % (Auto) 87.9 H Lymph % (Auto) 6.2 L Lymph # (Auto) 0.4 L ESR Ur Leukocyte Esterase Urine WBC Rheumatoid Factor < 13.0 Cycl Citrul Peptide IgG <16 COVID-19 (FARTUN) Influenza Type A (LEONOR) Negative Influenza Type B (LEONOR) Negative 09/24/23 09/24/23 09/24/23 19:47 22:07 22:07 Immature Gran % (Auto) Neut % (Auto) Lymph % (Auto) Lymph # (Auto) ESR Ur Leukocyte Esterase Small (1+) H Urine WBC 6-10 H Rheumatoid Factor Cycl Citrul Peptide IgG COVID-19 (FARTUN) Negative Influenza Type A (LEONOR) Influenza Type B (LEONOR) Assessment & Plan Assessment & Plan (1) PMR (polymyalgia rheumatica): Code(s): M35.3 - Polymyalgia rheumatica (2) Elevated sed rate: Code(s): R70.0 - Elevated erythrocyte sedimentation rate Plan: # PMR(Polymyalgia Rheumaica)/ELEVATED ESR: Ms. Segundo was sent for evaluation of pain to shoulder, neck and upper extremity pain when she was suspected of having PMR, given elevation in sed rate (55 on 08/28/23). This is different from her usual joint pain that is helped by Tylenol and Tramadol. This pain prevents her from doing some activities that she could have done with her chronic joint pain. On PE she has tenderness to her upper extremities, discomfort to lift her hands above her head and weakness against resistance. Given that PMR is a vasculitis that traditionally affects the larger muscle group of the arms and thighs, I think it is reasonable to assess PMR. When I review the lab for 08/29/2023 and 09/24/2023, in addition to the elevated ESR, I can see significant changes in the CBC differentials such as elevation in neutrophils (50.7 to 87.9) and reduced lymphocytes (38.1 to 6.2). This can occur in the presence of an infection or systemic inflammation. I will also add that the UA showed a small number of leukocyte esterace, which could be concerning for a possible mild urinary tract infection, but there was no bacteria present. It could be considered that this could account for the changes in her lymphocytes and neutrophils. However, this big change is usually seen in a more severe infection or an inflammatory disorder. Moreover, her WBCs were within normal limits and patient also denies UTI symptoms and no AMS observed on PE. Additional immunology labs were also done and results were negative for rheumatoid factor and CCP. The CRP can also be elevated with PMR but was not obtained and ESR was not repeated on 09/24/23 so no comparison could be made. Since the sed rate was done on 08/29/2023 and could be normalized by now, I will do baseline labs for sed rate and CRP, If ESR is still elevated or CRP is elevated, I will initiate treatment with prednisone for PMR. Patient knows to wait for call to start prednisone. Discussed with patient the possible short term side effects of Prednisone which includes but not limited to elevated blood sugars (patient is not T2DM), inso mnia and increase hunger/weight gain . Plan Elevated sed rate 55, low lymphocyte 6.2 and high neutrophils and 84.7 Orders: Orders Erythrocyte Sedimentation Rate 09/29/23 M35.3 - Polymyalgia rheumatica C Reactive Protein 09/29/23 M35.3 - Polymyalgia rheumatica Medications: New prednisone Take 3 tablets for 5 days; then two tablets until next visit. 5 mg PO DIRECTED 90 tabs 0RF Coding Level of Care Code Est Pt Level 3 (90553) Diagnoses PMR (polymyalgia rheumatica) M35.3 Elevated sed rate R70.0
== END 2023-09-29 14:36 | disposition home or self-care (01) ==
PROVIDERS: PCP Registered Nurse; Visit Provider Nurse Practitioner Family
DX: M35.3 Polymyalgia rheumatica (principal); R70.0 Elevated erythrocyte sedimentation rate
CPT/HCPCS: 99214

== ENCOUNTER 2023-09-29 13:48 | Outpatient (REF) | payer OTHER, SELFPAY ==
[2023-09-29 16:16] LABS: C Reactive Protein 0.41 mg/dL (< or = 0.50)
[2023-09-29 16:44] LABS: Erythrocyte Sedimentation Rate 40 MM/HR (0-20)
== END 2023-09-29 13:49 | disposition home or self-care (01) ==
LOC: HO.LAB 13:48
PROVIDERS: PCP Registered Nurse; Visit Provider Nurse Practitioner Family
DX: M35.3 Polymyalgia rheumatica (principal); R70.0 Elevated erythrocyte sedimentation rate
CPT/HCPCS: 36415; 85652; 86140; 99212

== ENCOUNTER 2023-10-31 14:42 | Outpatient (AMB) | payer OTHER, SELFPAY ==
--- NOTE | 2023-10-31 14:45 | A.OFFVIS_ITS ---
Intake Vital Signs 10/31/23 14:49 Height 5 ft Weight 163 lb 2.273 oz BMI 31.9 BP 122/55 L Blood Pressure Location Lt brachial Position Sitting Pulse 73 Intake Visit Reasons: 5 week follow up CIC Intake Note: Ratna presents in the office as a 5 week follow up for CIC CC: She states that she is still the same nothing has really improved. The fiber pill has helped a little bit since the last visit. She would like to know if she should continue taking the prednisone. Chief Construction Inspector Required: Yes Chief Construction Inspector Name: [id number] Allergies efavirenz [From Sustiva] Allergy (Severe, Verified 10/31/23 14:49) NIGHTMARES oxycodone [From PERCOCET] Allergy (Intermediate, Verified 10/31/23 14:49) NAUSEA VOMITING DIZZYNESS HPI 5 week follow up CIC HPI Details LAST VISIT: Tubular adenoma GERD (gastroesophageal reflux disease) Diarrhea Chronic idiopathic constipation IBS (irritable bowel syndrome) Plan Colonoscopy results discussed with patient. 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 Patient has loose stools and constipation. Will start her on Citrucel to help her bulk her stools and patient will take Colace in the evening. Patient also reports acid reflux and dyspepsia. Patient can stay taking pantoprazole daily. Patient was encouraged to avoid dietary triggers and bedtime snacking. Staying upright for minimum 3 hours after meals discussed with patient. Patient will return in 5 weeks, sooner on as needed basis. She is agreeable to this plan and verbalizes understanding of instructions. She was given the opportunity to ask questions and all questions answered. ? Thank you for allowing me to participate in her care Medications New pantoprazole take one tablet half an hour before breakfast 40 mg PO DAILY 30 tabs 2RF K21.9 docusate sodium 100 mg PO DAILY 30 caps 3RF K59.00 methylcellulose (laxative) (Citrucel) 500 mg PO DAILY 30 tabs 2RF K59.00 TODAY'S VISIT Patient is here today for follow-up. Patient is concerned and wants to know if she should continue prednisone. Patient was placed on prednisone by her [place] umatologist for PMR. Patient reports that since she started taking Citrucel her bowels are moving little better. Patient states that she feels like docusate sodium helps but she would like something different to help her move her bowels better. Her symptoms of acid reflux are suppressed with pantoprazole. Patient is taking that in the morning. Patient denies any melena, hematochezia, unintentional weight loss or ribbon like stools. Patient denies any dyspepsia, dysphagia or odynophagia. Overall patient reports that she has been feeling well [facility] Medical History (Updated 09/29/23 @ 14:27 by NGUYỄN Love) PMR (polymyalgia rheumatica) Tubular adenoma Depression Asthma Primary osteoarthritis involving multiple joints Surgical History (Updated 09/26/23 @ 10:06 by EVON Temple) Hx of colonoscopy H/O tubal ligation Family History Father No problems noted. Mother No problems noted. Social History Household Members: None Housing: Apartment Alcohol intake: never Patient Tobacco Use Status: Never used Tobacco Current occupational status: disabled Sexual orientation: Straight/Heterosexual Gender identity: Female Female Reproductive History Menstrual Age of Menarche: 12 Review of Systems Const Denies weight gain and Denies weight loss ENT Reports no additional complaints, Denies dysphagia and Denies odynophagia Card Reports no additional complaints Resp Reports no additional complaints GI Denies abdominal pain, Denies belching, Denies melena, Denies bloating, Denies change in bowel habits, Reports constipation, Denies dysphagia, Denies excessive flatus, Denies dyspepsia, Denies heartburn, Denies diarrhea, Denies loose stools, Denies nausea, Denies odynophagia and Denies vomiting Reports no additional complaints Musc Reports no additional complaints Neuro Reports no additional complaints Psych Reports no additional complaints Endo Reports no additional complaints Physical Exam Vital Signs: Last Vital Signs Pulse 73 10/31/23 14:49 BP 122/55 L 10/31/23 14:49 BMI result Body Mass Index 31.9 Const General: healthy appearing, no acute distress and well developed Nutritional Appearance: obese Orientation/consciousness: patient oriented x3 HEENT Head: Yes normal to inspection, Yes normocephalic and Yes atraumatic Face and sinus: Yes normal facial exam Mouth: Normal oral and palatal mucosa present Throat: Yes posterior oropharynx normal, Yes tonsils normal and Yes uvula midline Eyes General: appearance normal, both eyes and all related structures Neck Neck: Yes normal visual inspection, Yes full ROM and Yes trachea midline Thyroid: Thyroid normal Resp Effort & Inspection: normal respiratory effort, able to speak in complete sentences, no tracheal deviation and symmetric chest movement Auscultation: clear to auscultation bilaterally Cardio Rate: regular rate GI Inspection: Yes normal to inspection, No distended and Yes obesity Palpation (GI): Soft to palpation, not firm, nontender and No hepatosplenomegaly present Auscultation: normal bowel sounds General: Yes no CVA tenderness Back/Spine/Pelvis Back: no CVA tenderness Skin General skin exam: elasticity normal, turgor normal and dry skin Neuro General: patient oriented x3 Psych Appearance: grossly normal Mental Status: mental status grossly normal Assessment & Plan Assessment & Plan (1) GERD (gastroesophageal reflux disease): Code(s): K21.9 - Gastro-esophageal reflux disease without esophagitis Qualifiers: Esophagitis presence: without esophagitis Qualified Code(s): K21.9 - Gastro-esophageal reflux disease without esophagitis (2) Chronic idiopathic constipation: Code(s): K59.04 - Chronic idiopathic constipation (3) IBS (irritable bowel syndrome): Code(s): K58.9 - Irritable bowel syndrome without diarrhea Qualifiers: Irritable bowel syndrome type: without diarrhea Qualified Code(s): K58.9 - Irritable bowel syndrome without diarrhea Plan Continue Citrucel in the morning. Patient was encouraged to take pantoprazole before breakfast. Continue avoiding dietary triggers and late night snacking. Staying upright for minimum 3 hours after meals discussed with patient. Patient can start taking senna at bedtime to help her eliminate her bowels better. She was encouraged to increase fluid intake and activity to promote better bowel motility. Patient will return in the office in 3 months, sooner on as needed basis. Patient is agreeable to this plan and verbalizes understanding of instructions. She was given the opportunity to ask questions and all questions answered. Thank you for allowing me to participate in her care Medications: New sennosides (Natural Senna Laxative) 17.2 mg (2 x 8.6 mg) PO BEDTIME 60 tabs 3RF constipation K59.00 - Constipation, unspecified Coding Level of Care Code Est Pt Level 4 (98203) Diagnoses Gastroesophageal reflux disease without esophagitis K21.9 Esophagitis presence: without esophagitis Chronic idiopathic constipation K59.04 Irritable bowel syndrome without diarrhea K58.9 Irritable bowel syndrome type: without diarrhea Time Spent (min) 35 Comment 25 minutes spent with patient and additional 10 minutes spent reviewing her records
[2023-10-31 14:49] VITALS: BP 122/55; PULSE 73; BMI 31.9
== END 2023-10-31 15:10 | disposition home or self-care (01) ==
PROVIDERS: PCP Registered Nurse; Visit Provider Nurse Practitioner Family
DX: K21.9 Gastro-esophageal reflux disease without esophagitis (principal); K59.04 Chronic idiopathic constipation; K58.9 Irritable bowel syndrome, unspecified
CPT/HCPCS: 99214

== ENCOUNTER → 2023-10-31 14:42 | Outpatient (BNVA) | payer OTHER, SELFPAY | PROVIDERS: PCP Registered Nurse; Visit Provider Nurse Practitioner Family | DX: K21.9 Gastro-esophageal reflux disease without esophagitis (principal); K59.04 Chronic idiopathic constipation; K58.9 Irritable bowel syndrome, unspecified | CPT/HCPCS: 99212 ==

== ENCOUNTER 2023-11-01 14:30 | Outpatient (REF) | payer OTHER, SELFPAY ==
[2023-11-01 16:21] LABS: Erythrocyte Sedimentation Rate 50 MM/HR (0-20)
[2023-11-01 16:35] LABS: C Reactive Protein 0.16 mg/dL (< or = 0.50)
== END 2023-11-01 14:31 | disposition home or self-care (01) ==
LOC: HO.LAB 14:30
PROVIDERS: PCP Registered Nurse; Visit Provider Nurse Practitioner Family
DX: M35.3 Polymyalgia rheumatica (principal); R70.0 Elevated erythrocyte sedimentation rate; Z79.899 Other long term (current) drug therapy
CPT/HCPCS: 36415; 85652; 86140; 99212

== ENCOUNTER 2023-11-01 14:30 | Outpatient (AMB) | payer OTHER, SELFPAY ==
[2023-11-01 14:37] VITALS: BP 136/78; PULSE 65; RESP 16; TEMP 36.6; O2SAT 98; BMI 32.3
--- NOTE | 2023-11-01 14:37 | MHC.OFFVIS ---
Intake Vital Signs 11/01/23 14:37 Height 5 ft Weight 165 lb 9.074 oz BMI 32.3 BP 136/78 Blood Pressure Location Rt brachial Position Sitting Respiration 16 Pulse 65 Pulse Source Pulse Oximeter Temp 97.9 F Temp Source Tympanic Pulse Oximetry (%) 98 Oxygen Delivery Method Room Air Intake Visit Reasons: Arthralgia Workgroup Leader Required: Yes Workgroup Leader Name: Yu #[id number] Allergies efavirenz [From Sustiva] Allergy (Severe, Verified 11/01/23 14:41) NIGHTMARES oxycodone [From PERCOCET] Allergy (Intermediate, Verified 11/01/23 14:41) NAUSEA VOMITING DIZZYNESS Medication List - Last Reconciled 11/01/23 by Munira Williamson RN acetaminophen ER 650 mg PO Q8H PRN alendronate 70 mg PO QWEEK alum-mag hydroxide-simeth 200-200-20 mg/5 mL (Maalox Advanced) 10 mL PO QID PRN atorvastatin 20 mg PO DAILY cholecalciferol (vitamin D3) 25 mcg PO DAILY cyanocobalamin (vitamin B-12) 1,000 mcg PO DAILY docusate sodium 100 mg PO DAILY htzgqgwdrd-gebaacaf-cczwts ala 200-25-25 mg (Odefsey) 1 tab PO DAILY famotidine 20 mg PO BID hydrocortisone 2.5% (Proctosol HC) 1 appl HI BID-QID PRN lidocaine-prilocaine 2.5-2.5 % topical DAILY methylcellulose (laxative) (Citrucel) 500 mg PO DAILY hfxcyfxjkxva-bitf-xinlz acid 18-400 mg-mcg (Certavite-Antioxidant) tabs PO prednisone 5 mg PO DIRECTED sennosides (Natural Senna Laxative) 17.2 mg (2 x 8.6 mg) PO BEDTIME vitamin B complex (B Complex-Vitamin B12 tablet) 1 tab PO DAILY HPI HPI Comments History of Present Illness Details Ms. Segundo is a 61yoF returns for followup of PMR. She denies muscle pain and tenderness and is doing well on Prednisone 5 mg 2 tablets per day. Prior Visit: Ms. Segundo is a 61yoF who presents for evaluation of upper extremity pain, shoulder pain and neck pain. She was last seen in the office February 2022. Patient was sent by her primary care provider for suspicion of PMR, given elevated ESR 55. Patient reports pain in her neck, shoulders, and upper arms. 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 She says that it is different from her normal shoulder pain it started about 2 weeks ago. She does not remember doing any activities that could cause the pain. She says that it is worse at night. She takes Tylenol but it does not help. She uses the toilet okay and has no difficulty standing or sitting on the toilet seat. She denies and if fatigue and tender and to her thighs and buttocks. Patient denies headaches, vision changes, TMJ pain. Prior Visit: She reports left heel pain that is worse with walking. Xray of the left heel April 2021 showed a large heel spur. She states that she is following with podiatry and received injections in the past. She admits to left hip pain for years, pain is intermittent, sharp and is improved with position changes and rest, pain is worse with sitting and walking. She admits to intermittent headaches after having COVID, December 2020. [facility] Medical History PMR (polymyalgia rheumatica) Tubular adenoma Depression Asthma Primary osteoarthritis involving multiple joints Surgical History Hx of colonoscopy H/O tubal ligation Family History Father No problems noted. Mother No problems noted. Social History Household Members: None Housing: Apartment Alcohol intake: never Patient Tobacco Use Status: Never used Tobacco Current occupational status: disabled Sexual orientation: Straight/Heterosexual Gender identity: Female Female Reproductive History Menstrual Age of Menarche: 12 Review of Systems Const All systems reviewed & are unremarkable except as noted in HPI and below Physical Exam Vital Signs: Last Vital Signs Temp 97.9 F 11/01/23 14:37 Pulse 65 11/01/23 14:37 Resp 16 11/01/23 14:37 BP 136/78 11/01/23 14:37 Pulse Ox 98 12/06/23 14:37 Oxygen Delivery Method Room Air 11/01/23 14:37 BMI result Body Mass Index 32.3 APPEARANCE: Patient in no acute distress EYES no redness, pupils equal and reactive to light, eyelids normal EARS: External ear normal HEAD/NECK: No scalp tenderness, jaw pain or weakness. No thyromegaly or masses, no adenopathy, trachea midline. HEART: Regular rhythm, S1-S2 heard, no murmurs, rubs or gallops. LUNG: Clear to auscultation throughout bilaterally, respiratory rate regular non-labored. EXTREMITIES: No tenderness on palpation to upper and upper shoulders and biceps. Patient able to lift arms past 90 degrees without discomfort; arms do not get fatigue with head, shoulder, knees demonstration. Denies tenderness to thighs on palpation, able to sit and stand without complaint. NEURO: Oriented and alert x3. No focal weakness. Gait normal. SKIN: No inflammatory or neoplastic lesions. Normal color and turgor Assessment & Plan Assessment & Plan (1) PMR (polymyalgia rheumatica): Code(s): M35.3 - Polymyalgia rheumatica (2) Elevated sed rate: Code(s): R70.0 - Elevated erythrocyte sedimentation rate Plan: #PMR(Polymyalgia Rheumaica)/ELEVATED ESR: Ms. Segundo was sent for evaluation of pain to shoulder, neck and upper extremity pain when she was suspected of having PMR, given elevation in sed rate (55 on 08/28/23). She reports significant improvement on Prednisone over the last month. She is able to lift her arms over her head and denies tenderness on palpation to upper arms and thighs and buttocks. Given this we will continue this treatment direction and taper down by 2 mg starting in 2 months. We will obtain updated labs to make sure elevated ESR has resolved before starting taper. She will do 10 mg for 1 month, then 9 mg for 1 month until next visit. Discussed with patient the possible short term side effects of Prednisone which includes but not limited to elevated blood sugars (patient is not T2DM), insomnia and increase hunger/weight gain . Follow-up in clinic 2 months Plan Elevated sed rate 55, low lymphocyte 6.2 and high neutrophils and 84.7 Orders: Orders Erythrocyte Sedimentation Rate 11/01/23 M35.3 - Polymyalgia rheumatica C Reactive Protein 11/01/23 M35.3 - Polymyalgia rheumatica Medications: New prednisone Combine with one 5 mg tablet Take 4 tablets per day 120 tabs 0RF M35.3 - Polymyalgia rheumatica Coding Level of Care Code Est Pt Level 3 (04380) Diagnoses PMR (polymyalgia rheumatica) M35.3 Elevated sed rate R70.0
== END 2023-11-01 15:10 | disposition home or self-care (01) ==
PROVIDERS: PCP Registered Nurse; Visit Provider Nurse Practitioner Family
DX: M35.3 Polymyalgia rheumatica (principal); R70.0 Elevated erythrocyte sedimentation rate
CPT/HCPCS: 99213

== ENCOUNTER 2023-11-23 13:04 | Outpatient (REF) | payer OTHER, SELFPAY ==
[2023-11-23 16:08] LABS: MANUAL DIFF FLAG NO
[2023-11-23 16:14] LABS: Basophils Percent Auto 0.4 % (0-2); Eosinophils Percent Auto 0.1 % (0-4); Hematocrit 40.7 % (37.0-47.0); Hemoglobin 12.9 g/dl (12.0-16.0); Imm Gran Abs Auto 0.03 X10*3/uL (0.00-0.03); Imm Gran Pct Auto 0.4 % (0.0-0.4); Mean Corpuscular HGB Conc 31.7 g/dl (31.0-35.0); Mean Corpuscular Hemoglobin 32.3 pg (27.0-33.0); Mean Corpuscular Volume 101.8 fL (80.0-98.0); Mean Platelet Volume 10.5 fL (9.4-12.3); Monocytes Absolute Auto 0.2 X10*3/uL (0.1-1.2); Monocytes Percent Auto 2.3 % (2-11); Neutrophils Absolute Auto 5.7 x10*3/uL (2.0-8.3); Neutrophils Percent Auto 82.8 % (45-73); Platelet Count 290 X10*3/uL (160-400); Red Cell Distribution Width 12.6 % (11.0-16.0); White Blood Count 6.9 X10*3/uL (4.8-10.8)
[2023-11-23 16:29] LABS: Alanine Aminotransferase 18 U/L (0-31); Albumin Level 4.2 g/dL (3.5-5.0); Alkaline Phosphatase 53 U/L (39-117); Anion Gap 14 (12-20); Aspartate Amino Transferase 24 U/L (5-31); Bilirubin Total 0.4 mg/dL (0.0-1.0); Blood Urea Nitrogen 18 mg/dL (9-16); Calcium 9.9 mg/dL (8.4-10.2); Carbon Dioxide 27 mmol/L (22-29); Chloride 103 mmol/L (96-108); Estimated Glomerular Filt Rate > 60; Glucose Random 168 mg/dL (60-115); Potassium 3.7 mmol/L (3.3-5.1); Sodium 140 mmol/L (135-145); Total Protein 7.9 g/dL (6.5-8.0)
[2023-11-24 10:08] LABS: Absolute CD3 Count 855 cells/uL (840-3060); Absolute CD4 Count 381 cells/uL (490-1740); Absolute CD8 Count 471 cells/uL (180-1170); Absolute Lymphocytes 1205 cells/uL (850-3900); CD4 CD8 Ratio 0.81 (0.86-5.00); Percent CD3 Cells 71 % (57-85); Percent CD4 Cells 32 % (30-61); Percent CD8 Cells 39 % (12-42)
[2023-11-24 17:54] LABS: HIV RNA PCR Qn Copies 49 copies/mL (NOT DETECTED); HIV RNA PCR Qn Log Copies 1.69 (NOT DETECTED)
[2023-12-09 08:32] LABS: HIV 1 Integrase Proviral DNA DETECTED; HIV 1 PR RT Proviral DNA DETECTED
== END 2023-11-23 13:05 | disposition home or self-care (01) ==
LOC: HO.HHCL 13:04
PROVIDERS: Visit Provider Internal Medicine
DX: B20 Human immunodeficiency virus [HIV] disease (principal)
CPT/HCPCS: 36415; 80053; 85025; 86359; 86360; 87536; 87900; 87901; 87906

== ENCOUNTER 2023-11-23 15:13 | Outpatient (REF) | payer OTHER, SELFPAY ==
--- NOTE | ~2023-11-23 | MM_ITS ---
EXAMINATION: BONE DENSITOMETRY CLINICAL INDICATION: Menopause. COMPARISON: Previous BD dated 11/10/2021 and baseline BD dated 05/13/2011. TECHNIQUE: Using a [employer] DXA System (software version: 13.1) manufactured by [employer], dual-energy x-ray absorptiometry was performed of the lumbar spine and left hip. The images are of good technical quality. Summary results are attached. FINDINGS: LEFT FEMUR, NECK: Current: BMD 0.743 g/cm2, Z-score -0.9, T-score -2.1, osteopenia. Prior: BMD 0.719 g/cm2. Baseline: BMD 0.748 g/cm2. LEFT FEMUR, TOTAL: Current: BMD 0.824 g/cm2, Z-score -0.5, T-score -1.5, osteopenia, 1.2% increase from baseline (<5% change is not significant). Baseline 11/10/2021: BMD 0.814 g/cm2. AP SPINE L1-L4: Current: BMD 0.901 g/cm2, Z-score -1.1, T-score -2.3, osteopenia, 4.9% increase from previous, 8.0% decrease from baseline (<5% change is not significant). Prior: BMD 0.859 g/cm2. Baseline: BMD 0.979 g/cm2. IDENTIFIED RISK FACTORS: Menopause, glucocorticoids (chronic), history of fracture (adult). HISTORY OF FRACTURE: Elbow. MEDICATIONS: Vitamin D, multivitamin. MM/XR DEXA axial skeleton IMPRESSION: 1. DIAGNOSIS: Osteopenia based on the lowest T-score value of -2.3 in the lumbar spine applying World Health Organization criteria. 2. 10-YEAR FRACTURE RISK PREDICTION, FRAX: Major osteoporotic fracture (clinical spine, forearm, hip or shoulder) 15.8%. Hip fracture 2.8%. 3. Treatment Recommendations: NOF guidelines recommend consideration for treatment in postmenopausal women and men age 50 and older presenting with the following: -A hip or vertebral (clinical or morphometric) fracture. -T-score less than or equal to -2.5 at the femoral neck or spine after appropriate evaluation to exclude secondary causes. -Low bone mass at the hip or spine and a 10-year fracture probability by FRAX of greater than or equal to 3% for hip fracture or greater than or equal to 20% for major osteoporotic fracture based on the [place] adapted WHO algorithm. 4. Other Recommendations: All treatment decisions require clinical judgment and consideration of individual patient factors, including patient preferences, comorbidities, previous drug use, risk factors not captured in the FRAX model (e.g. frailty, falls, vitamin D deficiency, increased bone turnover, interval significant decline in bone density) and possible under or overestimation of fracture risk by FRAX. Additional medical evaluation for secondary cause of low bone mineral density may be appropriate. FUTURE SCAN RECOMMENDATION: People with diagnosed cases of osteoporosis or at high risk for fracture should have regular bone mineral density tests. For patients eligible for Medicare, routine testing is allowed once every 2 years. The testing frequency can be increased to one year for patients who have rapidly progressing disease, those who are receiving or discontinuing medical therapy to restore bone mass, or have additional risk factors.
== END 2023-11-23 15:14 | disposition home or self-care (01) ==
LOC: HO.MAMMO 15:13
PROVIDERS: PCP Registered Nurse; Visit Provider Student in an Organized Health Care Education/Training Program
DX: Z13.820 Encounter for screening for osteoporosis (principal); Z78.0 Asymptomatic menopausal state; M81.0 Age-related osteoporosis without current pathological fracture
CPT/HCPCS: 77080

== ENCOUNTER 2024-01-03 14:54 | Outpatient (AMB) | payer OTHER, SELFPAY ==
[2024-01-03 14:59] VITALS: BP 110/62; PULSE 73; TEMP 35.9; O2SAT 99; BMI 33.5
--- NOTE | 2024-01-03 14:59 | A.OFFVIS_ITS ---
Intake Vital Signs 01/03/24 14:59 Height 5 ft Weight 171 lb 4.787 oz BMI 33.5 BP 110/62 Blood Pressure Location Rt brachial Position Sitting Pulse 73 Pulse Source Pulse Oximeter Temp 96.6 F L Temp Source Skin Pulse Oximetry (%) 99 Oxygen Delivery Method Room Air Intake Visit Reasons: PMR Intake Note: Patient last seen 11/01/23 by Gary, presents today for follow up and test results. Hatchery Laborer Required: No Hatchery Laborer Name: Kermit [id number] Information Interpreted: clinical only Accompanied by: Self / Same As Patient Allergies efavirenz [From Sustiva] Allergy (Severe, Verified 01/03/24 15:02) NIGHTMARES oxycodone [From PERCOCET] Allergy (Intermediate, Verified 01/03/24 15:02) NAUSEA VOMITING DIZZYNESS HPI HPI Comments History of Present Illness Details Ms. Segundo is a 61yoF returns for followup of PMR. She denies muscle pain and tenderness and is doing well on Prednisone 9 mg per day. She denies any ROS on lowered dose. Patient continues to deny headaches, vision changes and TMJ pain. On inquiry, patient reports she was referred to Infectious disease for +HIV serology. Prior Visit: Ms. Segundo is a 61yoF who presents for evaluation of upper extremity pain, shoulder pain and neck pain. She was last seen in the office February 2022. Patient was sent by her primary care provider for suspicion of PMR, given elevated ESR 55. Patient reports pain in her neck, shoulders, and upper arms. 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 She says that it is different from her normal shoulder pain it started about 2 weeks ago. She does not remember doing any activities that could cause the pain. She says that it is worse at night. She takes Tylenol but it does not help. She uses the toilet okay and has no difficulty standing or sitting on the toilet seat. She denies and if fatigue and tender and to her thighs and buttocks. Patient denies headaches, vision changes, TMJ pain. Prior Visit: She reports left heel pain that is worse with walking. Xray of the left heel April 2021 showed a large heel spur. She states that she is following with podiatry and received injections in the past. She admits to left hip pain for years, pain is intermittent, sharp and is improved with position changes and rest, pain is worse with sitting and walking. She admits to intermittent headaches after having COVID, December 2020. [facility] Medical History (Updated 01/04/24 @ 12:42 by Li Vega [facility]) Positive laboratory testing for human immunodeficiency virus PMR (polymyalgia rheumatica) Tubular adenoma Depression Asthma Primary osteoarthritis involving multiple joints Surgical History Hx of colonoscopy H/O tubal ligation Family History Father No problems noted. Mother No problems noted. Social History Household Members: None Housing: Apartment Alcohol intake: never Patient Tobacco Use Status: Never used Tobacco Current occupational status: disabled Sexual orientation: Straight/Heterosexual Gender identity: Female Female Reproductive History Menstrual Age of Menarche: 12 Review of Systems Const All systems reviewed & are unremarkable except as noted in HPI and below Physical Exam Vital Signs: Last Vital Signs Temp 96.6 F L 01/03/24 14:59 Pulse 73 01/03/24 14:59 BP 110/62 01/03/24 14:59 Pulse Ox 99 01/03/24 14:59 Oxygen Delivery Method Room Air 01/03/24 14:59 BMI result Body Mass Index 33.5 APPEARANCE: Patient in no acute distress, groomed, nourished EYES no redness, eyelids normal EARS: External ear normal HEAD/NECK: No scalp tenderness, jaw pain or weakness. No thyromegaly or masses, no adenopathy, trachea midline. HEART: Regular rhythm, S1-S2 heard, no murmurs, rubs or gallops. LUNG: Clear to auscultation throughout bilaterally, respiratory rate regular non-labored. EXTREMITIES: No tenderness on palpation to upper arms and upper shoulders and biceps. Patient able to lift arms past 90 degrees without discomfort; arms do not get fatigue with head, shoulder, knees demonstration. Denies tenderness to thighs on palpation, able to sit and stand without complaint. NEURO: Oriented and alert x3. No focal weakness. Gait normal. SKIN: No inflammatory or neoplastic lesions. Normal color and turgor Results Reviewed Results Reviewed: Laboratory Tests 11/23/23 01/03/24 13:06 15:57 ESR 28 H C-Reactive Protein 0.12 HIV-1 RNA copies/mL 49 H HIV-1 RNA logcopies/mL 1.69 H HIV-1 MA,RT Proviral DNA DETECTED A HIV-1 Integrase Proviral DNA DETECTED A Assessment & Plan Assessment & Plan (1) PMR (polymyalgia rheumatica): Code(s): M35.3 - Polymyalgia rheumatica (2) Elevated sed rate: Code(s): R70.0 - Elevated erythrocyte sedimentation rate (3) Positive laboratory testing for human immunodeficiency virus: Code(s): Z21 - Asymptomatic human immunodeficiency virus [HIV] infection status Plan #PMR(Polymyalgia Rheumaica)/ELEVATED ESR: Ms. Segundo returns for f/u PMR. She denies muscle pain/fatigue to shoulder, neck and upper extremity muscle pain/fatigue with use. Her Sed rate (55 on 08/28/23) has reduced to 28. I think this is sufficient to start the tapering. She will do 9 mg for 1 more week then reduce to 8 mg for 1 month and so on. Patient is reminded to call the office for ROS that lasts more than one week on a lowered dose. If this happens we will return to the last effective dose for 2 weeks then continue to taper. We will obtain updated labs before next visit to make sure elevated ESR continues to resolve. Reaffirmed with patient the possible short term side effects of Prednisone which includes but not limited to elevated blood sugars (patient is not T2DM), insomnia and increase hunger/weight gain. She is concerned about increased appetite. But I encouraged her to be mindful of that and self manage that the best she can because prednisone is the medication for PMR at this time. #+HIV labs: Patient states this is not new. She is on retroviral therapy (Salome) and was recently referred to infectious disease by PCP Follow-up in clinic 3 months I spent 25 minutes with reviewing chart, evaluating patient and documenting Orders: Orders C Reactive Protein 01/03/24 M35.3 - Polymyalgia rheumatica Erythrocyte Sedimentation Rate 01/03/24 M35.3 - Polymyalgia rheumatica Medications: Refilled prednisone Combine with one mg tablets for daily taper 5 mg PO DAILY 90 tabs 0RF M35.3 - Polymyalgia rheumatica Coding Level of Care Code Est Pt Level 3 (57441) Diagnoses PMR (polymyalgia rheumatica) M35.3 Elevated sed rate R70.0 Positive laboratory testing for human immunodeficiency virus Z21
== END 2024-01-03 15:34 | disposition home or self-care (01) ==
PROVIDERS: PCP Registered Nurse; Visit Provider Nurse Practitioner Family
DX: M35.3 Polymyalgia rheumatica (principal); R70.0 Elevated erythrocyte sedimentation rate; Z21 Asymptomatic human immunodeficiency virus [HIV] infection status
CPT/HCPCS: 99213

== ENCOUNTER 2024-01-03 14:54 | Outpatient (REF) | payer OTHER, SELFPAY ==
[2024-01-03 17:15] LABS: C Reactive Protein 0.12 mg/dL (< or = 0.50)
[2024-01-03 17:40] LABS: Erythrocyte Sedimentation Rate 28 MM/HR (0-20)
== END 2024-01-03 14:55 | disposition home or self-care (01) ==
LOC: HO.LAB 14:54
PROVIDERS: PCP Student in an Organized Health Care Education/Training Program; Visit Provider Nurse Practitioner Family
DX: M35.3 Polymyalgia rheumatica (principal); R70.0 Elevated erythrocyte sedimentation rate; Z21 Asymptomatic human immunodeficiency virus [HIV] infection status
CPT/HCPCS: 36415; 85652; 86140; 99212

== ENCOUNTER 2024-01-31 15:56 | Outpatient (AMB) | payer OTHER, SELFPAY ==
--- NOTE | 2024-01-31 15:58 | MHC.OFFVIS ---
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 Patient was encouraged to take pantoprazole before breakfast. Continue avoiding dietary triggers and late night snacking. Staying upright for minimum 3 hours after meals discussed with patient. Patient can start taking senna at bedtime to help her eliminate her bowels better. She was encouraged to increase fluid intake and activity to promote better bowel motility. Patient will return in the office in 3 months, sooner on as needed basis. Patient is agreeable to this plan and verbalizes understanding of instructions. She was given the opportunity to ask questions and all questions answered. ? Thank you for allowing me to participate in her care Medications New sennosides (Natural Senna Laxative) 17.2 mg (2 x 8.6 mg) PO BEDTIME 60 tabs 3RF constipation K59.00 TODAY'S VISIT Patient is here today for follow-up. Patient reports that she has been moving her bowels better now. Patient states that she increase fluid intake take senna and no longer needs to take Colace. However discussed with patient that she was diagnosed with melanosis coli and should not be on senna. Patient states that she took Dulcolax in the past and reports that she had abdominal pain. Patient denies melena, hematochezia, unintentional weight loss or ribbon like stools. Patient denies dyspepsia, dysphagia or odynophagia. Patient reports that she is taking famotidine and her symptoms are suppressed. Patient denies any other GI concerning symptoms. [facility] History (Updated 01/04/24 @ 12:42 by Li Vega [facility]) Positive laboratory testing for human immunodeficiency virus PMR (polymyalgia rheumatica) Tubular adenoma Depression Asthma Primary osteoarthritis involving multiple joints Surgical History Hx of colonoscopy H/O tubal ligation Family History Father No problems noted. Mother No problems noted. Social History Household Members: None Housing: Apartment Alcohol intake: never Patient Tobacco Use Status: Never used Tobacco Current occupational status: disabled Sexual orientation: Straight/Heterosexual Gender identity: Female Female Reproductive History Menstrual Age of Menarche: 12 Review of Systems Const Denies weight gain and Denies weight loss ENT Reports no additional complaints, Denies dysphagia and Denies odynophagia Card Reports no additional complaints Resp Reports no additional complaints GI Denies abdominal pain, Denies belching, Denies melena, Denies bloating, Denies change in bowel habits, Denies dysphagia, Denies excessive flatus, Denies dyspepsia, Denies heartburn, Denies diarrhea, Denies loose stools, Denies nausea, Denies odynophagia and Denies vomiting Reports no additional complaints Musc Reports no additional complaints Neuro Reports no additional complaints Psych Reports no additional complaints Endo Reports no additional complaints Physical Exam Vital Signs: Last Vital Signs Pulse 65 01/31/24 16:08 BP 126/58 L 01/31/24 16:08 BMI result Body Mass Index 34.2 Const General: healthy appearing, no acute distress and well developed Nutritional Appearance: well nourished Orientation/consciousness: patient oriented x3 Resp Effort & Inspection: normal respiratory effort, able to speak in complete sentences, no tracheal deviation and symmetric chest movement Auscultation: clear to auscultation bilaterally Cardio Rate: regular rate GI Inspection: Yes normal to inspection and No distended Palpation (GI): Soft to palpation, not firm, nontender and No hepatosplenomegaly present Auscultation: normal bowel sounds General: Yes no CVA tenderness Back/Spine/Pelvis Back: no CVA tenderness Skin General skin exam: elasticity normal, turgor normal and dry skin Neuro General: patient oriented x3 Psych Appearance: grossly normal Mental Status: mental status grossly normal Assessment & Plan Assessment & Plan (1) GERD (gastroesophageal reflux disease): Code(s): K21.9 - Gastro-esophageal reflux disease without esophagitis Qualifiers: Esophagitis presence: esophagitis presence not specified Qualified Code(s): K21.9 - Gastro-esophageal reflux disease without esophagitis (2) Chronic idiopathic constipation: Code(s): K59.04 - Chronic idiopathic constipation (3) IBS (irritable bowel syndrome): Code(s): K58.9 - Irritable bowel syndrome without diarrhea Qualifiers: Irritable bowel syndrome type: with constipation Qualified Code(s): K58.1 - Irritable bowel syndrome with constipation (4) Melanosis coli: Code(s): K63.89 - Other specified diseases of intestine Plan Stop Senokot. Start taking Dulcolax tablets. Patient was encouraged to increase fluid intake and activity to promote better bowel motility. Patient can also take Colace. She is taking iron supplements which might be constipating her. Continue famotidine twice a day. Avoid dietary triggers and late night snacking. Staying upright for minimum 3 hours after meals discussed with patient. I will see patient in 5 weeks, sooner on as needed basis. Patient is agreeable to this plan and verbalizes understanding of instructions. She was given the opportunity to ask questions and all questions answered. Thank you for allowing me to participate in her care Medications: New docusate sodium 100 mg PO BEDTIME 90 caps 3RF K59.00 - Constipation, unspecified bisacodyl (Dulcolax (bisacodyl)) 10 mg (2 x 5 mg) PO BEDTIME 180 tabs 4RF Discontinued sennosides (Natural Senna Laxative) Discontinued Reason: Doctor's Order 17.2 mg (2 x 8.6 mg) PO BEDTIME 60 tabs 3RF constipation K59.00 - Constipation, unspecified Coding Level of Care Code Est Pt Level 3 (61736) Diagnoses Gastroesophageal reflux disease, unspecified whether esophagitis present K21.9 Esophagitis presence: esophagitis presence not specified Chronic idiopathic constipation K59.04 Irritable bowel syndrome with constipation K58.1 Irritable bowel syndrome type: with constipation Melanosis coli K63.89 Time Spent (min) 30 Comment 20 minutes spent with patient and additional 10 minutes spent reviewing her records
[2024-01-31 16:08] VITALS: BP 126/58; PULSE 65; BMI 34.2
== END 2024-01-31 16:15 | disposition home or self-care (01) ==
PROVIDERS: PCP Registered Nurse; Visit Provider Nurse Practitioner Family
DX: K21.9 Gastro-esophageal reflux disease without esophagitis (principal); K59.04 Chronic idiopathic constipation; K58.1 Irritable bowel syndrome with constipation; K63.89 Other specified diseases of intestine
CPT/HCPCS: 99213

== ENCOUNTER → 2024-01-31 15:56 | Outpatient (BNVA) | payer OTHER, SELFPAY | PROVIDERS: PCP Registered Nurse; Visit Provider Nurse Practitioner Family | DX: K21.9 Gastro-esophageal reflux disease without esophagitis (principal); K59.04 Chronic idiopathic constipation; K58.1 Irritable bowel syndrome with constipation; K63.89 Other specified diseases of intestine | CPT/HCPCS: 99212 ==

== ENCOUNTER 2024-02-14 08:26 | Outpatient (REF) | payer OTHER, SELFPAY ==
[2024-02-14 11:20] LABS: MANUAL DIFF FLAG NO
[2024-02-14 11:46] LABS: Basophils Absolute Auto 0.1 X10*3/uL (0.0-0.2); Basophils Percent Auto 0.8 % (0-2); Eosinophils Absolute Auto 0.1 X10*3/uL (0.0-0.4); Eosinophils Percent Auto 1.5 % (0-4); Hematocrit 40.2 % (37.0-47.0); Hemoglobin 13.1 g/dl (12.0-16.0); Imm Gran Abs Auto 0.02 X10*3/uL (0.00-0.03); Imm Gran Pct Auto 0.3 % (0.0-0.4); Lymphocytes Absolute Auto 3.3 X10*3/uL (1.2-4.9); Lymphocytes Percent Auto 50.2 % (20-40); Mean Corpuscular HGB Conc 32.6 g/dl (31.0-35.0); Mean Corpuscular Hemoglobin 32.5 pg (27.0-33.0); Mean Corpuscular Volume 99.8 fL (80.0-98.0); Mean Platelet Volume 9.9 fL (9.4-12.3); Monocytes Absolute Auto 0.6 X10*3/uL (0.1-1.2); Monocytes Percent Auto 8.6 % (2-11); Neutrophils Absolute Auto 2.6 x10*3/uL (2.0-8.3); Neutrophils Percent Auto 38.6 % (45-73); Platelet Count 269 X10*3/uL (160-400); Red Blood Count 4.03 X10*6/uL (4.20-5.50); Red Cell Distribution Width 12.3 % (11.0-16.0); White Blood Count 6.6 X10*3/uL (4.8-10.8)
[2024-02-14 12:26] LABS: Alanine Aminotransferase 17 U/L (0-31); Albumin Level 3.8 g/dL (3.5-5.0); Alkaline Phosphatase 53 U/L (39-117); Anion Gap 12 (12-20); Aspartate Amino Transferase 21 U/L (5-31); Bilirubin Total 0.5 mg/dL (0.0-1.0); Blood Urea Nitrogen 17 mg/dL (9-16); Calcium 9.3 mg/dL (8.4-10.2); Carbon Dioxide 28 mmol/L (22-29); Chloride 107 mmol/L (96-108); Cholesterol 200 mg/dL (<200); Estimated Glomerular Filt Rate > 60; Glucose Random 93 mg/dL (60-115); HDL Cholesterol 83 mg/dL (>40); LDL Cholesterol Calculated 95 mg/dL (<100); Magnesium 2.2 mg/dL (1.6-2.6); Potassium 4.2 mmol/L (3.3-5.1); Sodium 143 mmol/L (135-145); Total Protein 7.1 g/dL (6.5-8.0); Triglycerides 110 mg/dL (<150)
[2024-02-14 12:38] LABS: Folate 12.4 ng/mL (> or = 4.0); Vitamin B12 861 pg/mL (200-900)
[2024-02-14 12:44] LABS: TSH reflex Free T4 3.99 uIU/mL (0.32-4.0)
[2024-02-17 13:54] LABS: HIV RNA PCR Qn Copies 144 copies/mL (NOT DETECTED); HIV RNA PCR Qn Log Copies 2.16 (NOT DETECTED)
== END 2024-02-14 08:27 | disposition home or self-care (01) ==
LOC: HO.HHCL 08:26
PROVIDERS: Visit Provider Student in an Organized Health Care Education/Training Program
DX: Z13.6 Encounter for screening for cardiovascular disorders (principal); Z21 Asymptomatic human immunodeficiency virus [HIV] infection status
CPT/HCPCS: 36415; 80053; 80061; 82607; 82746; 83735; 84443; 85025; 87536

== ENCOUNTER 2024-02-20 16:10 | Outpatient (REF) | payer OTHER, SELFPAY | END 2024-02-20 16:11 | disposition home or self-care (01) | LOC: HO.MAMMO 16:10 | PROVIDERS: PCP Student in an Organized Health Care Education/Training Program; Visit Provider Student in an Organized Health Care Education/Training Program | DX: Z12.31 Encounter for screening mammogram for malignant neoplasm of breast (principal) | CPT/HCPCS: 77063; 77067 ==

== ENCOUNTER → 2024-02-20 16:30 | Outpatient (BNV) | payer OTHER, SELFPAY | PROVIDERS: PCP Student in an Organized Health Care Education/Training Program; Visit Provider Radiology Diagnostic Radiology | DX: Z12.31 Encounter for screening mammogram for malignant neoplasm of breast (principal) | CPT/HCPCS: 77063; 77067 ==

== ENCOUNTER 2024-03-06 15:36 | Outpatient (AMB) | payer OTHER, SELFPAY ==
[2024-03-06 15:38] VITALS: BP 144/66; PULSE 78; BMI 35.6
--- NOTE | 2024-03-06 15:38 | A.OFFVIS_ITS ---
Vital Signs 03/06/24 15:38 Height 5 ft Weight 182 lb 1.629 oz BMI 35.6 BP 144/66 H Blood Pressure Location Lt brachial Position Sitting Pulse 78 Intake Visit Reasons: 5 week follow up Intake Note: Ratna returns to in office visit today in follow up of constipation. CC: Patient c/o constipation, abdominal bloating, and increased gas. She stats that the Senna worked better than Dulcolax for her constipation. 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 Start taking Dulcolax tablets. Patient was encouraged to increase fluid intake and activity to promote better bowel motility. Patient can also take Colace. She is taking iron supplements which might be constipating her. Continue famotidine twice a day. Avoid dietary triggers and late night snacking. Staying upright for minimum 3 hours after meals discussed with patient. I will see patient in 5 weeks, sooner on as needed basis. Patient is agreeable to this plan and verbalizes understanding of instructions. She was given the opportunity to ask questions and all questions answered. ? Thank you for allowing me to participate in her care Medications New docusate sodium 100 mg PO BEDTIME 90 caps 3RF K59.00 bisacodyl (Dulcolax (bisacodyl)) 10 mg (2 x 5 mg) PO BEDTIME 180 tabs 4RF Discontinued sennosides (Natural Senna Laxative) Discontinued Reason: Doctor's Order 17.2 mg (2 x 8.6 mg) PO BEDTIME 60 tabs 3RF constipation K59.00 TODAY'S VISIT: Patient is here today for follow-up. Patient reports that she has postprandial abdominal bloating. Sometimes reports that she is bloated for a long time specially that she is not moving her bowels well. Patient is taking Dulcolax, however she reports cramping and bloating worse than when she was taking senna. We discontinue senna due to her colonoscopy showing melanosis coli. Patient will need alternative treatment to help her with constipation. Patient reports that she is trying to increase fiber in her diet. Not drinking enough fluid. Patient denies any melena, hematochezia, unintentional weight loss or ribbon like stools. Patient denies any dyspepsia, dysphagia or odynophagia. [facility] Medical History Positive laboratory testing for human immunodeficiency virus PMR (polymyalgia rheumatica) Tubular adenoma Depression Asthma Primary osteoarthritis involving multiple joints Surgical History Hx of colonoscopy H/O tubal ligation Family History Father No problems noted. Mother No problems noted. Social History Household Members: None Housing: Apartment Alcohol intake: never Patient Tobacco Use Status: Never used Tobacco Current occupational status: disabled Sexual orientation: Straight/Heterosexual Gender identity: Female Female Reproductive History Menstrual Age of Menarche: 12 Review of Systems Const Denies weight gain and Denies weight loss ENT Reports no additional complaints, Denies dysphagia and Denies odynophagia Card Reports no additional complaints Resp Reports no additional complaints GI Reports abdominal pain, Denies belching, Denies melena, Reports bloating, Denies change in bowel habits, Reports constipation, Denies dysphagia, Denies excessive flatus, Denies dyspepsia, Denies heartburn, Denies diarrhea, Denies loose stools, Denies nausea, Denies odynophagia and Denies vomiting Reports no additional complaints Musc Reports no additional complaints Neuro Reports no additional complaints Psych Reports no additional complaints Endo Reports no additional complaints Physical Exam Vital Signs: Last Vital Signs Pulse 78 04/10/24 15:38 BP 144/66 H 03/06/24 15:38 BMI result Body Mass Index 35.6 Const General: healthy appearing and no acute distress Nutritional Appearance: obese Orientation/consciousness: patient oriented x3 Resp Effort & Inspection: normal respiratory effort, able to speak in complete sentences, no tracheal deviation and symmetric chest movement Auscultation: clear to auscultation bilaterally Cardio Rate: regular rate GI Inspection: Yes normal to inspection, No distended and Yes obesity Palpation (GI): Soft to palpation, not firm, nontender and No hepatosplenomegaly present Auscultation: normal bowel sounds General: Yes no CVA tenderness Back/Spine/Pelvis Back: no CVA tenderness Skin General skin exam: elasticity normal, turgor normal and dry skin Neuro General: patient oriented x3 Psych Appearance: grossly normal Mental Status: mental status grossly normal Assessment & Plan Assessment & Plan (1) GERD (gastroesophageal reflux disease): Code(s): K21.9 - Gastro-esophageal reflux disease without esophagitis Qualifiers: Esophagitis presence: esophagitis presence not specified Qualified Code(s): K21.9 - Gastro-esophageal reflux disease without esophagitis (2) Chronic idiopathic constipation: Code(s): K59.04 - Chronic idiopathic constipation (3) IBS (irritable bowel syndrome): Code(s): K58.9 - Irritable bowel syndrome without diarrhea Qualifiers: Irritable bowel syndrome type: with constipation Qualified Code(s): K58.1 - Irritable bowel syndrome with constipation (4) Melanosis coli: Code(s): K63.89 - Other specified diseases of intestine Plan Will try patient on Trulance. Patient was encouraged to increase fluid intake and activity to promote better bowel motility. Patient was encouraged to eat more vegetables. Avoid eating carbs and fried food. I will see patient in 3 months, sooner on as needed basis. Patient is agreeable to this plan and verbalizes understanding of instructions. She was given the opportunity to ask questions and all questions answered. Thank you for allowing me to participate in her care Medications: New plecanatide (Trulance) 3 mg PO DAILY 30 tabs 3RF K59.09 - Other constipation
== END 2024-03-06 15:58 | disposition home or self-care (01) ==
PROVIDERS: PCP Registered Nurse; Visit Provider Nurse Practitioner Family
DX: K21.9 Gastro-esophageal reflux disease without esophagitis (principal); K59.04 Chronic idiopathic constipation; K58.1 Irritable bowel syndrome with constipation; K63.89 Other specified diseases of intestine
CPT/HCPCS: 99213

== ENCOUNTER → 2024-03-06 15:36 | Outpatient (BNVA) | payer OTHER, SELFPAY | PROVIDERS: PCP Registered Nurse; Visit Provider Nurse Practitioner Family | DX: K21.9 Gastro-esophageal reflux disease without esophagitis (principal); K58.1 Irritable bowel syndrome with constipation; K59.04 Chronic idiopathic constipation; K63.89 Other specified diseases of intestine | CPT/HCPCS: 99212 ==

== ENCOUNTER 2024-04-03 15:05 | Outpatient (AMB) | payer OTHER, SELFPAY ==
--- NOTE | 2024-04-03 15:07 | MHC.OFFVIS ---
Vital Signs 04/03/24 15:08 Height 5 ft Weight 181 lb 3.52 oz BMI 35.4 BP 132/88 Blood Pressure Location Rt brachial Position Sitting Pulse 68 Pulse Source Pulse Oximeter Pulse Oximetry (%) 97 Oxygen Delivery Method Room Air Intake Visit Reasons: PMR/Elevated Sed Rate. Intake Note: Patient last seen on 01/03/24, presents to office today for PMR follow up and test results. 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 Segundo is a 61yoF returns for followup of PMR. Today she reports ROS to upper arms and shulders. It appears she was not taking the taper correctly and dropped to 5mg from 8mg per day. Per the patient she did not get the one mg tablets from the Pharmacy. Patient continues to deny headaches, vision changes and TMJ pain. On inquiry, patient reports she was referred to Infectious disease for +HIV serology. Prior Visit: Ms. Segundo is a 61yoF who presents for evaluation of upper extremity pain, shoulder pain and neck pain. She was last seen in the office February 2022. Patient was sent by her primary care provider for suspicion of PMR, given elevated ESR 55. Patient reports pain in her neck, shoulders, and upper arms. 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 She says that it is different from her normal shoulder pain it started about 2 weeks ago. She does not remember doing any activities that could cause the pain. She says that it is worse at night. She takes Tylenol but it does not help. She uses the toilet okay and has no difficulty standing or sitting on the toilet seat. She denies and if fatigue and tender and to her thighs and buttocks. Patient denies headaches, vision changes, TMJ pain. Prior Visit: She reports left heel pain that is worse with walking. Xray of the left heel April 2021 showed a large heel spur. She states that she is following with podiatry and received injections in the past. She admits to left hip pain for years, pain is intermittent, sharp and is improved with position changes and rest, pain is worse with sitting and walking. She admits to intermittent headaches after having COVID, December 2020. [facility] Medical History Positive laboratory testing for human immunodeficiency virus PMR (polymyalgia rheumatica) Tubular adenoma Depression Asthma Primary osteoarthritis involving multiple joints Surgical History Hx of colonoscopy H/O tubal ligation Family History Father No problems noted. Mother No problems noted. Social History Household Members: None Housing: Apartment Alcohol intake: never Patient Tobacco Use Status: Never used Tobacco Current occupational status: disabled Sexual orientation: Straight/Heterosexual Gender identity: Female Female Reproductive History Menstrual Age of Menarche: 12 Review of Systems Const All systems reviewed & are unremarkable except as noted in HPI and below Physical Exam Vital Signs: Last Vital Signs Pulse 68 04/03/24 15:08 BP 132/88 04/03/24 15:08 Pulse Ox 97 04/03/24 15:08 Oxygen Delivery Method Room Air 04/03/24 15:08 BMI result Body Mass Index 35.4 APPEARANCE: Patient in no acute distress, groomed, nourished EYES no redness, eyelids normal EARS: External ear normal HEAD/NECK: No scalp tenderness, jaw pain or weakness. No thyromegaly or masses, no adenopathy, trachea midline. HEART: Regular rhythm, S1-S2 heard, no murmurs, rubs or gallops. LUNG: Clear to auscultation throughout bilaterally, respiratory rate regular non-labored. EXTREMITIES: No tenderness on palpation to upper arms and upper shoulders and biceps. Patient reports increased fatigue to lift arms past 90 degrees arms do fatigued and pained with head, shoulder, knees demonstration. Denies tenderness to thighs on palpation, able to sit and stand without complaint. NEURO: Oriented and alert x3. No focal weakness. Gait normal. SKIN: No inflammatory or neoplastic lesions. Normal color and turgor Assessment & Plan Assessment & Plan (1) PMR (polymyalgia rheumatica): Code(s): M35.3 - Polymyalgia rheumatica Category: Medical (2) Elevated sed rate: Code(s): R70.0 - Elevated erythrocyte sedimentation rate Plan #PMR(Polymyalgia Rheumaica)/ELEVATED ESR: Ms. Segundo returns for f/u PMR. She admits discomfort and atigue to shoulder, neck and upper extremity muscle pain/fatigue with use. Her Sed rate (55 on 08/28/23) has reduced to 28. I think the ROS of symptoms is due to the quick taper. She appears to have challenges with the monthly taper so I will change the interval and keep her at a dose for 2 months at a time and reduce it by 2.5 mg. I will restart her at 7.5mg per day x 9 weeks. Patient again is reminded to call the office for ROS that lasts more than one week. If this happens we will return to the last effective dose for 2 weeks then continue to taper. We will obtain updated labs before next visit to make sure elevated ESR continues to resolve. Reaffirmed with patient the possible short term side effects of Prednisone which includes but not limited to elevated blood sugars (patient is not T2DM), insomnia and increase hunger/weight gain. She is concerned about increased appetite. But I encouraged her to be mindful of that and self manage that the best she can because prednisone is the medication for PMR at this time. #+HIV labs: Patient states this is not new. She is on retroviral therapy (Salome) and was recently referred to infectious disease by PCP Follow-up in clinic 2 months I spent 25 minutes with reviewing chart, evaluating patient and documenting Orders: Orders Erythrocyte Sedimentation Rate 8 Weeks M35.3 - Polymyalgia rheumatica Immunofixation Pnl, Serum 8 Weeks M35.3 - Polymyalgia rheumatica Protein Electrophoresis, Serum 8 Weeks M35.3 - Polymyalgia rheumatica C Reactive Protein 8 Weeks M35.3 - Polymyalgia rheumatica Immunoglobulins,IgG IgA IgM 8 Weeks M35.3 - Polymyalgia rheumatica Medications: Changed From prednisone Combine with one mg tablets for daily taper 5 mg PO DAILY 90 tabs 0RF M35.3 - Polymyalgia rheumatica To prednisone 7.5 mg (1.5 x 5 mg) PO DAILY 90 tabs 0RF M35.3 - Polymyalgia rheumatica Coding Level of Care Code Tele Est Pt Level 3 (63197) Complex EM visit Add On G2211 Diagnoses PMR (polymyalgia rheumatica) M35.3 Elevated sed rate R70.0
[2024-04-03 15:08] VITALS: BP 132/88; PULSE 68; O2SAT 97; BMI 35.4
== END 2024-04-03 15:45 | disposition home or self-care (01) ==
PROVIDERS: PCP Registered Nurse; Visit Provider Nurse Practitioner Family
DX: M35.3 Polymyalgia rheumatica (principal); R70.0 Elevated erythrocyte sedimentation rate
CPT/HCPCS: 99214; G2211

== ENCOUNTER → 2024-04-03 15:05 | Outpatient (BNVA) | payer OTHER, SELFPAY | PROVIDERS: PCP Registered Nurse; Visit Provider Nurse Practitioner Family | DX: M35.3 Polymyalgia rheumatica (principal); R70.0 Elevated erythrocyte sedimentation rate | CPT/HCPCS: 99212 ==

== ENCOUNTER 2024-05-23 18:37 | Outpatient (REF) | payer OTHER, SELFPAY ==
[2024-05-24 14:25] LABS: Bacterial Vaginosis PCR NEGATIVE (Negative); Candida Group PCR NOT DETECTED (Not Detect); Candida glab krusei PCR NOT DETECTED (Not Detect); Trichomonas vaginalis PCR NOT DETECTED (Not Detect)
== END 2024-05-23 18:38 | disposition home or self-care (01) ==
LOC: HO.HHCLNP 18:37
PROVIDERS: Visit Provider Student in an Organized Health Care Education/Training Program
DX: Z21 Asymptomatic human immunodeficiency virus [HIV] infection status (principal)
CPT/HCPCS: 0352U; 88112

== ENCOUNTER 2024-05-29 09:12 | Outpatient (REF) | payer OTHER, SELFPAY ==
[2024-05-29 11:11] LABS: Erythrocyte Sedimentation Rate 23 MM/HR (0-20)
[2024-05-31 10:08] LABS: Prot Elec - Albumin 3.9 g/dL (3.8-4.8); Prot Elec - Alpha1 0.3 g/dL (0.2-0.3); Prot Elec - Alpha2 0.9 g/dL (0.5-0.9); Prot Elec - Beta 1 0.4 g/dL (0.4-0.6); Prot Elec - Beta 2 0.5 g/dL (0.2-0.5); Prot Elec - Gamma 1.2 g/dL (0.8-1.7); Prot Elec - Total Protein 7.2 g/dL (6.1-8.1)
[2024-06-03 17:03] LABS: IgA 244 mg/dL (70-320); IgG 1314 mg/dL (600-1540); IgM 68 mg/dL (50-300)
== END 2024-05-29 09:13 | disposition home or self-care (01) ==
LOC: HO.LAB 09:12
PROVIDERS: PCP Student in an Organized Health Care Education/Training Program; Visit Provider Nurse Practitioner Family
DX: M35.3 Polymyalgia rheumatica (principal)
CPT/HCPCS: 36415; 82784; 84165; 85652; 86140; 86334

== ENCOUNTER 2024-06-03 14:19 | Outpatient (AMB) | payer OTHER, SELFPAY ==
--- NOTE | 2024-06-03 14:41 | MHC.OFFVIS ---
Vital Signs 06/03/24 14:45 Height 5 ft Weight 189 lb 6.033 oz BMI 37.0 BP 130/64 Blood Pressure Location Rt brachial Position Sitting Pulse 67 Pulse Source Pulse Oximeter Temp 98 F Pulse Oximetry (%) 98 Oxygen Delivery Method Room Air Intake Visit Reasons: PMR Intake Note: Patient presents for PMR. Accounting Representative Required: Yes Accounting Representative Services: Accounting Representative Present Accounting Representative Name: Zackary Chadwick [id number] Allergies efavirenz [From Sustiva] Allergy (Severe, Verified 06/03/24 14:45) NIGHTMARES oxycodone [From PERCOCET] Allergy (Intermediate, Verified 06/03/24 14:45) NAUSEA VOMITING DIZZYNESS Medication List - Last Reconciled 06/03/24 by Kurt Woods MD acetaminophen ER 650 mg PO Q8H PRN alendronate 70 mg PO QWEEK ammonium lactate 12% topical atorvastatin 20 mg PO DAILY twaanioeq-zzxedtwd-gvfokwc ala 50-200-25 mg (Biktarvy) 1 tab PO DAILY bisacodyl (Dulcolax (bisacodyl)) 10 mg (2 x 5 mg) PO BEDTIME calcium carbonate 600 mg PO BID calcium polycarbophil (Fiber-Lax) mg PO cholecalciferol (vitamin D3) 25 mcg PO DAILY cyanocobalamin (vitamin B-12) 1,000 mcg PO DAILY docusate sodium 100 mg PO BEDTIME famotidine 20 mg PO BID ketotifen fumarate 0.025%(0.035%) (Eye Itch Relief) drps ophthalmic (eye) lidocaine-prilocaine 2.5-2.5 % topical DAILY nqjczpljanob-zfyd-vvlhp acid 18-400 mg-mcg (Certavite-Antioxidant) tabs PO plecanatide (Trulance) 3 mg PO DAILY prednisone Use a combination of prednisone 5 mg tablets and prednisone 1 mg tablets to follow this taper 6 mg daily for 2 weeks 5 mg daily for 2 weeks 4 mg daily for 2 weeks 3 mg daily for 2 weeks and stay on it prednisone Use a combination of prednisone 5 mg tablets and prednisone 1 mg tablets to follow this taper 6 mg daily for 2 weeks 5 mg daily for 2 weeks 4 mg daily for 2 weeks 3 mg daily for 2 weeks and stay on it HPI Comments Details: This is a 63-year-old female recently diagnosed with PMR by Li Horn who presents for follow-up. She is on prednisone 7.5 mg daily. She states that she does not feel much better overall. She continues to have joint pains and stiffness pain with activities at home. She has gained more than 15 lb since prednisone was started. [facility] Medical History Positive laboratory testing for human immunodeficiency virus PMR (polymyalgia rheumatica) Tubular adenoma Depression Asthma Primary osteoarthritis involving multiple joints Surgical History Hx of colonoscopy H/O tubal ligation Family History Father No problems noted. Mother No problems noted. Social History Household Members: None Housing: Apartment Alcohol intake: never Patient Tobacco Use Status: Never used Tobacco Current occupational status: disabled Sexual orientation: Straight/Heterosexual Gender identity: Female Female Reproductive History Menstrual Age of Menarche: 12 Review of Systems [facility] [place]ralgias and Reports stiffness Physical Exam Vital Signs: Last Vital Signs Temp 98 F 06/03/24 14:45 Pulse 67 06/03/24 14:45 BP 130/64 06/03/24 14:45 Pulse Ox 98 06/03/24 14:45 Oxygen Delivery Method Room Air 06/03/24 14:45 BMI result Body Mass Index 37.0 Const General: cooperative, healthy appearing and comfortable Nutritional Appearance: obese Orientation/consciousness: patient oriented x3 Limitations: no limitations HEENT Head: Yes normocephalic and Yes atraumatic Mouth: moist mucous membranes Resp Effort & Inspection: normal respiratory effort and able to speak in complete sentences Auscultation: clear to auscultation bilaterally Cardio Rate: regular rate Rhythm: regular rhythm GI Inspection: No distended Palpation (GI): Soft to palpation and nontender Skin General skin exam: no rashes or lesions noted Neuro General: patient oriented x3 Extrem Other: No active synovitis Normal range of motion of shoulders No knee pain with full flexion-extension Negative rotator cuff provocative maneuvers bilaterally Negative Speed's test bilaterally Assessment & Plan Assessment & Plan (1) PMR (polymyalgia rheumatica): Code(s): M35.3 - Polymyalgia rheumatica Category: Medical Plan: This is a 63-year-old female recently diagnosed with PMR by Li Horn who presents for follow-up. She initially had multiple joint achiness and stiffness especially with activities at home with elevated ESR, normal CRP. She is on prednisone 7.5 mg daily. She does not report much improvement. The PMR diagnosis might be in question. Patient has chronic HIV which may be a reason for an elevated sed rate Patient has gained significant weight since prednisone was started. I would like to lower her prednisone and monitor her response Reduce prednisone to 6 mg daily for 2 weeks then lower it by 1 mg every 2 weeks Labs before next visit in 8 weeks Plan I spent 30 minutes reviewing patient's chart, evaluating patient, ordering diagnostic workup, counseling patient and documenting in the chart Orders: Orders C Reactive Protein 2 Months M35.3 - Polymyalgia rheumatica Comprehensive Met. Panel 2 Months M35.3 - Polymyalgia rheumatica Complete Blood Count Auto Diff 2 Months M35.3 - Polymyalgia rheumatica Erythrocyte Sedimentation Rate 2 Months M35.3 - Polymyalgia rheumatica Medications: New prednisone Use a combination of prednisone 5 mg tablets and prednisone 1 mg tablets to follow this taper 6 mg daily for 2 weeks 5 mg daily for 2 weeks 4 mg daily for 2 weeks 3 mg daily for 2 weeks and stay on it 140 tabs 0RF Changed From prednisone 7.5 mg (1.5 x 5 mg) PO DAILY 90 tabs 0RF M35.3 - Polymyalgia rheumatica To prednisone Use a combination of prednisone 5 mg tablets and prednisone 1 mg tablets to follow this taper 6 mg daily for 2 weeks 5 mg daily for 2 weeks 4 mg daily for 2 weeks 3 mg daily for 2 weeks and stay on it 30 tabs 0RF M35.3 - Polymyalgia rheumatica Coding Level of Care Code Est Pt Level 4 (05309) Diagnoses PMR (polymyalgia rheumatica) M35.3
[2024-06-03 14:45] VITALS: BP 130/64; PULSE 67; TEMP 36.6; O2SAT 98; BMI 37.0
== END 2024-06-03 15:07 | disposition home or self-care (01) ==
LOC: HO.RHE 14:19
PROVIDERS: PCP Student in an Organized Health Care Education/Training Program; Visit Provider Student in an Organized Health Care Education/Training Program
DX: M35.3 Polymyalgia rheumatica (principal)
CPT/HCPCS: 99214

== ENCOUNTER → 2024-06-03 14:19 | Outpatient (BNVA) | payer OTHER, SELFPAY | PROVIDERS: PCP Student in an Organized Health Care Education/Training Program; Visit Provider Student in an Organized Health Care Education/Training Program | DX: M35.3 Polymyalgia rheumatica (principal); Z79.52 Long term (current) use of systemic steroids | CPT/HCPCS: 99212 ==

== ENCOUNTER 2024-06-05 13:34 | Outpatient (AMB) | payer OTHER, SELFPAY ==
[2024-06-05 13:38] VITALS: BP 110/60; PULSE 84; BMI 36.9
--- NOTE | 2024-06-05 13:38 | MHC.OFFVIS ---
Vital Signs 06/05/24 13:38 Height 5 ft Weight 188 lb 11.451 oz BMI 36.9 BP 110/60 Blood Pressure Location Lt brachial Position Sitting Pulse 84 Pulse Source Pulse Oximeter Intake Visit Reasons: 3 month follow up Intake Note: Ratna returns to in office follow up of CIC. CC: Patient states that she would like to know if she can take the Trulance every other day because she gets abdominal pain and after having a BM she feels like she needs to go again. Pipe Finishing Supervisor Required: Yes Accompanied by: Self / Same As Patient Allergies efavirenz [From Sustiva] Allergy (Severe, Verified 06/05/24 13:40) NIGHTMARES oxycodone [From PERCOCET] Allergy (Intermediate, Verified 06/05/24 13:40) NAUSEA VOMITING DIZZYNESS HPI HPI 3 month follow up: Details: LAST VISIT: GERD (gastroesophageal reflux disease) Chronic idiopathic constipation IBS (irritable bowel syndrome) Melanosis coli Plan Will try patient on Trulance. Patient was encouraged to increase fluid intake and activity to promote better bowel motility. Patient was encouraged to eat more vegetables. Avoid eating carbs and fried food. I will see patient in 3 months, sooner on as needed basis. Patient is agreeable to this plan and verbalizes understanding of instructions. She was given the opportunity to ask questions and all questions answered. ? Thank you for allowing me to participate in her care Medications New plecanatide (Trulance) 3 mg PO DAILY 30 tabs 3RF K59.09 TODAY'S VISIT Patient is here today for follow-up. Patient states that she is taking Trulance, however she will have multiple bowel movements after taking Trulance. Patient states that she feels like she is not emptying and needs to go back to use the restroom several times after taking the medication. Patient tried taking it every other day, however she still feels like she has to go often. Patient denies any melena, hematochezia. Patient denies any dyspepsia, dysphagia or odynophagia. Patient tried taking Dulcolax, however she was experiencing cramping after taking the medication so she stopped. Patient is taking famotidine twice a day as needed. [facility] Medical History Positive laboratory testing for human immunodeficiency virus PMR (polymyalgia rheumatica) Tubular adenoma Depression Asthma Primary osteoarthritis involving multiple joints Surgical History Hx of colonoscopy H/O tubal ligation Family History Father No problems noted. Mother No problems noted. Social History Household Members: None Housing: Apartment Alcohol intake: never Patient Tobacco Use Status: Never used Tobacco Current occupational status: disabled Sexual orientation: Straight/Heterosexual Gender identity: Female Female Reproductive History Menstrual Age of Menarche: 12 Review of Systems Const Denies weight gain and Denies weight loss ENT Reports no additional complaints, Denies dysphagia and Denies odynophagia Card Reports no additional complaints Resp Reports no additional complaints GI Reports abdominal pain, Denies belching, Denies melena, Reports bloating, Denies change in bowel habits, Reports constipation, Denies dysphagia, Denies excessive flatus, Denies dyspepsia, Denies heartburn, Denies diarrhea, Denies loose stools, Denies nausea, Denies odynophagia and Denies vomiting Reports no additional complaints Musc Reports no additional complaints Neuro Reports no additional complaints Psych Reports no additional complaints Endo Reports no additional complaints Physical Exam Vital Signs: Last Vital Signs Pulse 84 06/05/24 13:38 BP 110/60 06/05/24 13:38 BMI result Body Mass Index 36.9 Const General: healthy appearing and no acute distress Nutritional Appearance: obese Orientation/consciousness: patient oriented x3 Resp Effort & Inspection: normal respiratory effort, able to speak in complete sentences, no tracheal deviation and symmetric chest movement Auscultation: clear to auscultation bilaterally Cardio Rate: regular rate GI Inspection: Yes normal to inspection, No distended and Yes obesity Palpation (GI): Soft to palpation, not firm, nontender and No hepatosplenomegaly present Auscultation: normal bowel sounds General: Yes no CVA tenderness Back/Spine/Pelvis Back: no CVA tenderness Skin General skin exam: elasticity normal, turgor normal and dry skin Neuro General: patient oriented x3 Psych Appearance: grossly normal Mental Status: mental status grossly normal Assessment & Plan Assessment & Plan (1) GERD (gastroesophageal reflux disease): Code(s): K21.9 - Gastro-esophageal reflux disease without esophagitis Qualifiers: Esophagitis presence: esophagitis presence not specified Qualified Code(s): K21.9 - Gastro-esophageal reflux disease without esophagitis (2) Chronic idiopathic constipation: Code(s): K59.04 - Chronic idiopathic constipation (3) IBS (irritable bowel syndrome): Code(s): K58.9 - Irritable bowel syndrome without diarrhea Qualifiers: Irritable bowel syndrome type: without diarrhea Qualified Code(s): K58.9 - Irritable bowel syndrome without diarrhea (4) Melanosis coli: Code(s): K63.89 - Other specified diseases of intestine Plan Patient will start taking Linzess daily. Increase fluid intake and activity to promote better bowel motility. Continue famotidine on as needed basis. Avoid dietary triggers and late night snacking. Staying upright for minimum 3 hours after meals discussed with patient. Patient will follow-up in the office in 2 months, sooner on as needed basis. She is agreeable to this plan and verbalizes understanding of instructions. She was given the opportunity to ask questions and all questions answered. Thank you for allowing me to participate in her care Medications: New linaclotide (Linzess) 145 mcg PO DAILY 30 caps 2RF Discontinued plecanatide (Trulance) Discontinued Reason: Doctor's Order 3 mg PO DAILY 30 tabs 3RF K59.09 - Other constipation bisacodyl (Dulcolax (bisacodyl)) Discontinued Reason: Doctor's Order 10 mg (2 x 5 mg) PO BEDTIME 180 tabs 4RF Coding Level of Care Code Est Pt Level 3 (72856) Diagnoses Gastroesophageal reflux disease, unspecified whether esophagitis present K21.9 Esophagitis presence: esophagitis presence not specified Chronic idiopathic constipation K59.04 Irritable bowel syndrome without diarrhea K58.9 Irritable bowel syndrome type: without diarrhea Melanosis coli K63.89 Time Spent (min) 25 Comment 15 minutes spent with patient and additional 10 minutes spent reviewing her records
== END 2024-06-05 14:03 | disposition home or self-care (01) ==
PROVIDERS: PCP Registered Nurse; Visit Provider Nurse Practitioner Family
DX: K21.9 Gastro-esophageal reflux disease without esophagitis (principal); K59.04 Chronic idiopathic constipation; K58.9 Irritable bowel syndrome, unspecified; K63.89 Other specified diseases of intestine
CPT/HCPCS: 99213

== ENCOUNTER → 2024-06-05 13:34 | Outpatient (BNVA) | payer OTHER, SELFPAY | PROVIDERS: PCP Registered Nurse; Visit Provider Nurse Practitioner Family | DX: K21.9 Gastro-esophageal reflux disease without esophagitis (principal); K59.04 Chronic idiopathic constipation; K58.9 Irritable bowel syndrome, unspecified; K63.89 Other specified diseases of intestine; Z79.899 Other long term (current) drug therapy | CPT/HCPCS: 99212 ==

== ENCOUNTER 2024-06-26 14:12 | Outpatient (AMB) | payer OTHER, SELFPAY ==
[2024-06-26 14:14] VITALS: BP 126/72; BMI 36.6
--- NOTE | 2024-06-26 14:14 | A.OFFVIS_ITS ---
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/DO NOT RS Flash Ranging Crewmember Required: Yes Flash Ranging Crewmember Language: Screw Machine Repairer Services: Flash Ranging Crewmember Present (in person) Flash Ranging Crewmember Name: Le BARNARD Information Interpreted: non-clinical & clinical Underground Mine Machinery Mechanic: Underground Mine Machinery Mechanic Present (Le BARNARD) Accompanied by: Self / Same As Patient Allergies efavirenz [From Sustiva] Allergy (Severe, Verified 06/26/24 14:19) NIGHTMARES oxycodone [From PERCOCET] Allergy (Intermediate, Verified 06/26/24 14:19) NAUSEA VOMITING DIZZYNESS Post menopausal: Yes HPI Comments Details: Presenting for annual exam. No complaints. Last Pap/HPV was negative in 04/18 Last Mammogram was BI-RADS 1 in 02/17 Last Colonoscopy was done in 09/18, the recommendation was to repeat in 7 years [facility] Medical History Positive laboratory testing for human immunodeficiency virus PMR (polymyalgia rheumatica) Tubular adenoma Depression Asthma Primary osteoarthritis involving multiple joints Surgical History Hx of colonoscopy H/O tubal ligation Family History Father No problems noted. Mother No problems noted. Social History Household Members: None Housing: Apartment Alcohol intake: never Patient Tobacco Use Status: Never used Tobacco Current occupational status: disabled Sexual orientation: Straight/Heterosexual Gender identity: Female Female Reproductive History Menstrual Age of Menarche: 12 Menopause type: natural Total pregnancies: 2 Full term: 2 Number of Living Children: 2 Date of last pap smear: 03/28/23 Date of Mammogram: 02/20/24 Date of last Bone Density Screenin11/23/23 Review of Systems Const All systems reviewed & are unremarkable except as noted in HPI and below Card Reports as per HPI Resp Reports as per HPI GI Reports as per HPI and Reports no additional complaints Reports as per HPI Physical Exam Vital Signs: Last Vital Signs BP 126/72 06/26/24 14:14 BMI result Body Mass Index 36.6 Const General: cooperative, healthy appearing and comfortable Chest Chest palpation & inspection: normal inspection of the chest and normal palpation of entire chest wall Breast/axilla inspection: normal inspection of the breasts and normal inspection of the axillae Breast/axilla palpation: normal palpation of the breasts, normal palpation of the axillae and no axillary lymphadenopathy Resp Effort & Inspection: normal respiratory effort Auscultation: clear to auscultation bilaterally Percussion: percussion normal Cardio Palpation: normal PMI Rate: regular rate Rhythm: regular rhythm Heart sounds: no murmurs and no rubs Peripheral pulses: Peripheral pulses 2+ throughout GI Inspection: Yes normal to inspection Palpation (GI): Soft to palpation, nontender, no guarding, not rigid and No hepatosplenomegaly present Percussion: Yes normal to percussion Auscultation: normal bowel sounds Rectal Exam - Female: deferred General: Yes bladder normal to palpation External Female Exam: No lesion Speculum Exam - Vagina: normal appearance of the vagina, normal palpation, normal vaginal discharge and not erythematous Speculum Exam - Cervix: normal appearance of the cervix and normal palpation Bimanual exam- vagina & uterus: normal bimanual exam, normal palpation, uterine size normal, bladder normal to palpation, consistency normal and normal palpation Bimanual Exam- Adnexa, other: normal adnexae, no masses and no tenderness Assessment & Plan Assessment & Plan (1) Well woman exam: Code(s): Z01.419 - Encounter for gynecological examination (general) (routine) without abnormal findings Category: Medical Plan: Co testing not indicated this year. Counseled the patient about the recommended dietary allowance of 1200 mg of Calcium & 600 IU of vitamin D. Instructions given the patient to schedule next screening Mammogram in 03/21. The patient was instructed to perform monthly self-breast exams and schedule annual exam in a year. All questions answered and the patient verbalized understanding. Coding Level of Care Code Est Pt Prev Care 40-64y(52793) Diagnoses Well woman exam Z01.419
== END 2024-06-26 14:29 | disposition home or self-care (01) ==
PROVIDERS: Visit Provider Obstetrics & Gynecology
DX: Z01.419 Encounter for gynecological examination (general) (routine) without abnormal findings (principal)
CPT/HCPCS: 99396

== ENCOUNTER → 2024-06-26 14:12 | Outpatient (BNVA) | payer OTHER, SELFPAY | PROVIDERS: Visit Provider Obstetrics & Gynecology ==

== ENCOUNTER 2024-07-31 14:01 | Outpatient (REF) | payer OTHER, SELFPAY ==
[2024-07-31 14:21] LABS: MANUAL DIFF FLAG NO
[2024-07-31 15:23] LABS: Basophils Absolute Auto 0.1 X10*3/uL (0.0-0.2); Basophils Percent Auto 1.1 % (0-2); Eosinophils Percent Auto 0.5 % (0-4); Hematocrit 38.7 % (37.0-47.0); Hemoglobin 12.7 g/dl (12.0-16.0); Imm Gran Abs Auto 0.01 X10*3/uL (0.00-0.03); Imm Gran Pct Auto 0.2 % (0.0-0.4); Lymphocytes Absolute Auto 1.8 X10*3/uL (1.2-4.9); Lymphocytes Percent Auto 29.7 % (20-40); Mean Corpuscular HGB Conc 32.8 g/dl (31.0-35.0); Mean Corpuscular Hemoglobin 32.6 pg (27.0-33.0); Mean Corpuscular Volume 99.5 fL (80.0-98.0); Mean Platelet Volume 9.9 fL (9.4-12.3); Monocytes Absolute Auto 0.5 X10*3/uL (0.1-1.2); Monocytes Percent Auto 7.6 % (2-11); Neutrophils Absolute Auto 3.8 x10*3/uL (2.0-8.3); Neutrophils Percent Auto 60.9 % (45-73); Platelet Count 250 X10*3/uL (160-400); Red Blood Count 3.89 X10*6/uL (4.20-5.50); Red Cell Distribution Width 12.1 % (11.0-16.0); White Blood Count 6.2 X10*3/uL (4.8-10.8)
[2024-07-31 15:48] LABS: Alanine Aminotransferase 17 U/L (0-31); Albumin Level 3.8 g/dL (3.5-5.0); Alkaline Phosphatase 66 U/L (39-117); Anion Gap 10 (12-20); Aspartate Amino Transferase 21 U/L (5-31); Bilirubin Total 0.4 mg/dL (0.0-1.0); Blood Urea Nitrogen 17 mg/dL (9-16); Calcium 9.6 mg/dL (8.4-10.2); Carbon Dioxide 26 mmol/L (22-29); Chloride 112 mmol/L (96-108); Estimated Glomerular Filt Rate 56; Glucose Random 122 mg/dL (60-115); Potassium 4.3 mmol/L (3.3-5.1); Sodium 144 mmol/L (135-145); Total Protein 7.1 g/dL (6.5-8.0)
[2024-07-31 16:21] LABS: Erythrocyte Sedimentation Rate 31 MM/HR (0-20)
== END 2024-07-31 14:02 | disposition home or self-care (01) ==
LOC: HO.LAB 14:01
PROVIDERS: PCP Student in an Organized Health Care Education/Training Program; Visit Provider Student in an Organized Health Care Education/Training Program
DX: M35.3 Polymyalgia rheumatica (principal)
CPT/HCPCS: 36415; 80053; 85025; 85652; 86140

== ENCOUNTER 2024-08-07 09:01 | Outpatient (REF) | payer OTHER, SELFPAY ==
[2024-08-07 11:26] LABS: MANUAL DIFF FLAG NO
[2024-08-07 11:33] LABS: Basophils Percent Auto 0.8 % (0-2); Eosinophils Absolute Auto 0.1 X10*3/uL (0.0-0.4); Eosinophils Percent Auto 1.9 % (0-4); Hemoglobin 12.5 g/dl (12.0-16.0); Imm Gran Abs Auto 0.02 X10*3/uL (0.00-0.03); Imm Gran Pct Auto 0.4 % (0.0-0.4); Lymphocytes Absolute Auto 1.9 X10*3/uL (1.2-4.9); Lymphocytes Percent Auto 40.1 % (20-40); Mean Corpuscular HGB Conc 32.9 g/dl (31.0-35.0); Mean Corpuscular Hemoglobin 32.6 pg (27.0-33.0); Mean Platelet Volume 10.2 fL (9.4-12.3); Monocytes Absolute Auto 0.5 X10*3/uL (0.1-1.2); Monocytes Percent Auto 9.9 % (2-11); Neutrophils Absolute Auto 2.2 x10*3/uL (2.0-8.3); Neutrophils Percent Auto 46.9 % (45-73); Platelet Count 255 X10*3/uL (160-400); Red Blood Count 3.84 X10*6/uL (4.20-5.50); Red Cell Distribution Width 12.1 % (11.0-16.0); White Blood Count 4.7 X10*3/uL (4.8-10.8)
[2024-08-07 11:54] LABS: Alanine Aminotransferase 19 U/L (0-31); Albumin Level 3.8 g/dL (3.5-5.0); Alkaline Phosphatase 70 U/L (39-117); Anion Gap 12 (12-20); Aspartate Amino Transferase 28 U/L (5-31); Bilirubin Total 0.6 mg/dL (0.0-1.0); Blood Urea Nitrogen 12 mg/dL (9-16); Calcium 9.4 mg/dL (8.4-10.2); Carbon Dioxide 25 mmol/L (22-29); Chloride 110 mmol/L (96-108); Cholesterol 150 mg/dL (<200); Estimated Glomerular Filt Rate 60; Glucose Random 109 mg/dL (60-115); HDL Cholesterol 68 mg/dL (>40); LDL Cholesterol Calculated 68 mg/dL (<100); Potassium 3.9 mmol/L (3.3-5.1); Sodium 143 mmol/L (135-145); Total Protein 7.1 g/dL (6.5-8.0); Triglycerides 73 mg/dL (<150)
[2024-08-07 12:56] LABS: Reflex LDLD? No
[2024-08-08 19:18] LABS: Mumps Virus IgG Antibody <9.00 AU/mL; Rubella IgG Antibody 7.41 Index; Rubeola IgG (Measles) >300.00 AU/mL
[2024-08-10 07:24] LABS: TS Negative Control Passed; TS Panel A 0; TS Panel B 0; TS Positive Control Passed; TSpotTB Negative (Negative)
[2024-08-10 15:33] LABS: HIV RNA PCR Qn Copies 75 copies/mL (NOT DETECTED); HIV RNA PCR Qn Log Copies 1.88 (NOT DETECTED)
[2024-08-10 21:44] LABS: Absolute CD3 Count 1630 cells/uL (840-3060); Absolute CD4 Count 870 cells/uL (490-1740); Absolute CD8 Count 740 cells/uL (180-1170); Absolute Lymphocytes 1922 cells/uL (850-3900); CD4 CD8 Ratio 1.18 (0.86-5.00); Percent CD3 Cells 85 % (57-85); Percent CD4 Cells 45 % (30-61); Percent CD8 Cells 38 % (12-42)
== END 2024-08-07 09:02 | disposition home or self-care (01) ==
LOC: HO.HHCL 09:01
PROVIDERS: Visit Provider Student in an Organized Health Care Education/Training Program
DX: B20 Human immunodeficiency virus [HIV] disease (principal); M35.3 Polymyalgia rheumatica
CPT/HCPCS: 36415; 80053; 80061; 85025; 86359; 86360; 86481; 86735; 86762; 86765; 86787; 87536; 99212

== ENCOUNTER 2024-08-07 15:30 | Outpatient (AMB) | payer OTHER, SELFPAY ==
[2024-08-07 16:00] VITALS: BP 134/70; PULSE 80; O2SAT 95; BMI 36.6
--- NOTE | 2024-08-07 16:00 | A.OFFVIS_ITS ---
Vital Signs 08/07/24 16:00 Height 5 ft Weight 187 lb 2.759 oz BMI 36.6 BP 134/70 Blood Pressure Location Lt brachial Pulse 80 Pulse Source Pulse Oximeter Pulse Oximetry (%) 95 Oxygen Delivery Method Room Air Intake Visit Reasons: PMR Intake Note: Patient last seen by Doctor Kurt Woods on 06/03/24. Presents today for PMR follow up and test results. Sharepoint Administrator Required: Yes Sharepoint Administrator Name: Zahra [id number] Allergies efavirenz [From Sustiva] Allergy (Severe, Verified 08/07/24 16:06) NIGHTMARES oxycodone [From PERCOCET] Allergy (Intermediate, Verified 08/07/24 16:06) NAUSEA VOMITING DIZZYNESS Medication List - Last Reconciled 08/07/24 by Kurt Woods MD acetaminophen ER 650 mg PO Q8H PRN alendronate 70 mg PO QWEEK ammonium lactate 12% topical atorvastatin 20 mg PO DAILY oqdiwwobx-vavdwbwn-nmtvnqx ala 50-200-25 mg (Biktarvy) 1 tab PO DAILY calcium carbonate 600 mg PO BID calcium polycarbophil (Fiber-Lax) mg PO cholecalciferol (vitamin D3) 25 mcg PO DAILY cyanocobalamin (vitamin B-12) 1,000 mcg PO DAILY docusate sodium 100 mg PO BEDTIME famotidine 20 mg PO BID ketotifen fumarate 0.025%(0.035%) (Eye Itch Relief) drps ophthalmic (eye) lidocaine-prilocaine 2.5-2.5 % topical DAILY linaclotide (Linzess) 145 mcg PO DAILY cyqsxekxdwwr-kscj-srzjk acid 18-400 mg-mcg (Certavite-Antioxidant) tabs PO prednisone 2 mg PO DAILY HPI Comments Details: 64-year-old female recently diagnosed with PMR by Li Horn returns for follow-up. She has been tapering her prednisone by 1 mg every 2 weeks. She has not noticed any change in symptoms since lowering the prednisone. She is currently on 2 mg daily. Has been taking 2 mg the last 2 weeks. Initial history with me: This is a 63-year-old female recently diagnosed with PMR by Li Horn who presents for follow-up. She is on prednisone 7.5 mg daily. She states that she does not feel much better overall. She continues to have joint pains and stiffness pain with activities at home. She has gained more than 15 lb since prednisone was started. [facility] Medical History Positive laboratory testing for human immunodeficiency virus PMR (polymyalgia rheumatica) Tubular adenoma Depression Asthma Primary osteoarthritis involving multiple joints Surgical History Hx of colonoscopy H/O tubal ligation Family History Father No problems noted. Mother No problems noted. Social History Household Members: None Housing: Apartment Alcohol intake: never Patient Tobacco Use Status: Never used Tobacco Current occupational status: disabled Sexual orientation: Straight/Heterosexual Gender identity: Female Female Reproductive History Menstrual Age of Menarche: 12 Review of Systems Musc Reports arthralgias Physical Exam Vital Signs: Last Vital Signs Pulse 80 08/07/24 16:00 BP 134/70 08/07/24 16:00 Pulse Ox 95 08/07/24 16:00 Oxygen Delivery Method Room Air 08/07/24 16:00 BMI result Body Mass Index 36.6 Const General: cooperative, healthy appearing and comfortable Nutritional Appearance: obese Orientation/consciousness: patient oriented x3 Limitations: no limitations HEENT Head: Yes normocephalic and Yes atraumatic Mouth: moist mucous membranes Resp Effort & Inspection: normal respiratory effort and able to speak in complete sentences Cardio Rate: regular rate Rhythm: regular rhythm GI Inspection: No distended Palpation (GI): Soft to palpation and nontender Skin General skin exam: no rashes or lesions noted Neuro General: patient oriented x3 Extrem Other: No active synovitis Normal range of motion of shoulders Some thoracic bilateral paraspinal muscle tenderness No knee pain with full flexion-extension Negative rotator cuff provocative maneuvers bilaterally Negative Speed's test bilaterally Assessment & Plan Assessment & Plan (1) PMR (polymyalgia rheumatica): Code(s): M35.3 - Polymyalgia rheumatica Category: Medical Plan: This is a 64-year-old female recently diagnosed with PMR by Li Horn who presents for follow-up. She initially had multiple joint achiness and stiffness especially with activities at home with elevated ESR, normal CRP. When I saw patient last visit she was on prednisone 7.5 mg daily. She did not report much improvement. The PMR diagnosis might be in question. I have been slowly tapering her prednisone. She is currently on 2 mg daily. She has not noted any change in symptoms. Patient has chronic HIV which may be a reason for an elevated sed rate Patient has gained significant weight since prednisone was started. I think prednisone should be tapered off. Advised patient to lower her prednisone to 1 mg daily for 2 weeks then discontinue it Follow-up p.r.n. Plan I spent 16 minutes reviewing patient's chart, evaluating patient, counseling patient and documenting in the chart Medications: Changed From prednisone Use a combination of prednisone 5 mg tablets and prednisone 1 mg tablets to follow this taper 6 mg daily for 2 weeks 5 mg daily for 2 weeks 4 mg daily for 2 weeks 3 mg daily for 2 weeks and stay on it 140 tabs 0RF To prednisone 2 mg PO DAILY Coding Level of Care Code Est Pt Level 3 (99863) Diagnoses PMR (polymyalgia rheumatica) M35.3
== END 2024-08-07 16:25 | disposition home or self-care (01) ==
PROVIDERS: PCP Student in an Organized Health Care Education/Training Program; Visit Provider Student in an Organized Health Care Education/Training Program
DX: M35.3 Polymyalgia rheumatica (principal)
CPT/HCPCS: 99213

== ENCOUNTER 2024-08-14 17:44 | Outpatient (REF) | payer OTHER, SELFPAY | END 2024-08-14 17:45 | disposition home or self-care (01) | LOC: HO.HHCLNP 17:44 | PROVIDERS: Visit Provider Student in an Organized Health Care Education/Training Program | DX: B20 Human immunodeficiency virus [HIV] disease (principal) | CPT/HCPCS: 88112 ==

== ENCOUNTER 2024-08-28 13:45 | Outpatient (REF) | payer OTHER, SELFPAY ==
[2024-09-02 09:18] LABS: HPV mRNA E6/E7 Not Detected (Not Detected)
== END 2024-08-28 13:46 | disposition home or self-care (01) ==
LOC: HO.HHCLNP 13:45
PROVIDERS: Visit Provider Advanced Practice Midwife
DX: Z12.4 Encounter for screening for malignant neoplasm of cervix (principal)
CPT/HCPCS: 36415; 87624; 88175; 99212

== ENCOUNTER → 2024-08-28 16:15 | Outpatient (AMB) | payer OTHER, SELFPAY ==
--- NOTE | 2024-08-28 16:25 | A.OFFVIS_ITS ---
Vital Signs 08/28/24 16:27 Height 5 ft Weight 190 lb 0.615 oz BMI 37.1 BP 112/54 L Blood Pressure Location Rt brachial Position Sitting Pulse 64 Pulse Source Pulse Oximeter Pulse Oximetry (%) 98 Oxygen Delivery Method Room Air Intake Visit Reasons: 2 month f.u Intake Note: Ratna presents in office today for a scheduled 2 mos FUV. CC; Pt was rx'd linzess at their last visit. No lab orders were placed. Pt reports that this was a refill and not a new rx. Pt reports that they have been taking the medication still regardless as they are dependent on a medbox for their medications. Pt is wondering if a reduced dose would be helpful. Pt denies any other sx or concerns at this time. [employer] Required: Yes [employer] Services: [employer] Present [employer] Name: [id number] Epifanio Allergies efavirenz [From Sustiva] Allergy (Severe, Verified 08/28/24 16:26) NIGHTMARES oxycodone [From PERCOCET] Allergy (Intermediate, Verified 08/28/24 16:26) NAUSEA VOMITING DIZZYNESS HPI HPI 2 month f.u: Details: LAST VISIT GERD (gastroesophageal reflux disease) Chronic idiopathic constipation IBS (irritable bowel syndrome) Melanosis coli Plan Patient will start taking Linzess daily. Increase fluid intake and activity to promote better bowel motility. Continue famotidine on as needed basis. Avoid dietary triggers and late night snacking. Staying upright for minimum 3 hours after meals discussed with patient. Patient will follow-up in the office in 2 months, sooner on as needed basis. She is agreeable to this plan and verbalizes understanding of instructions. She was given the opportunity to ask questions and all questions answered. ? Thank you for allowing me to participate in her care Medications New linaclotide (Linzess) 145 mcg PO DAILY 30 caps 2RF Discontinued plecanatide (Trulance) Discontinued Reason: Doctor's Order 3 mg PO DAILY 30 tabs 3RF K59.09 bisacodyl (Dulcolax (bisacodyl)) Discontinued Reason: Doctor's Order 10 mg (2 x 5 mg) PO BEDTIME 180 tabs 4RF TODAY'S VISIT Patient is here today for follow-up. Patient reports that since last time I have seen her she is moving her bowels better, however occasionally patient will staff postprandial abdominal bloating and loose stools. For the most part she feels like she empties her bowels well, however occasionally she still will feel constipated. Patient is not following any particular diet. Mostly patient eats [place] food. Low fluid intake and low fiber intake. Patient denies melena, hematochezia, unintentional weight loss or ribbon like stools. Patient denies any dyspepsia, dysphagia or odynophagia. Patient is on Wegovy for weight loss and reports to be doing well. [facility] Medical History Positive laboratory testing for human immunodeficiency virus PMR (polymyalgia rheumatica) Tubular adenoma Depression Asthma Primary osteoarthritis involving multiple joints Surgical History Hx of colonoscopy H/O tubal ligation Family History Father No problems noted. Mother No problems noted. Social History Household Members: None Housing: Apartment Alcohol intake: never Patient Tobacco Use Status: Never used Tobacco Current occupational status: disabled Sexual orientation: Straight/Heterosexual Gender identity: Female Female Reproductive History Menstrual Age of Menarche: 12 Review of Systems Const Denies weight gain and Denies weight loss ENT Reports no additional complaints, Denies dysphagia and Denies odynophagia Card Reports no additional complaints Resp Reports no additional complaints GI Reports abdominal pain, Denies belching, Denies melena, Reports bloating, Denies change in bowel habits, Reports constipation, Denies dysphagia, Denies excessive flatus, Denies dyspepsia, Denies heartburn, Denies diarrhea, Denies loose stools, Denies nausea, Denies odynophagia and Denies vomiting Reports no additional complaints Musc Reports no additional complaints Neuro Reports no additional complaints Psych Reports no additional complaints Endo Reports no additional complaints Physical Exam Vital Signs: Last Vital Signs Pulse 64 08/28/24 16:27 BP 112/54 L 08/28/24 16:27 Pulse Ox 98 08/28/24 16:27 Oxygen Delivery Method Room Air 08/28/24 16:27 BMI result Body Mass Index 37.1 Const General: healthy appearing and no acute distress Nutritional Appearance: obese Orientation/consciousness: patient oriented x3 Resp Effort & Inspection: normal respiratory effort, able to speak in complete sentences, no tracheal deviation and symmetric chest movement Auscultation: clear to auscultation bilaterally Cardio Rate: regular rate GI Inspection: Yes normal to inspection, No distended and Yes obesity Palpation (GI): Soft to palpation, not firm, nontender and No hepatosplenomegaly present Auscultation: normal bowel sounds General: Yes no CVA tenderness Back/Spine/Pelvis Back: no CVA tenderness Skin General skin exam: elasticity normal, turgor normal and dry skin Neuro General: patient oriented x3 Psych Appearance: grossly normal Mental Status: mental status grossly normal Assessment & Plan Assessment & Plan (1) GERD (gastroesophageal reflux disease): Code(s): K21.9 - Gastro-esophageal reflux disease without esophagitis Qualifiers: Esophagitis presence: esophagitis presence not specified Qualified Code(s): K21.9 - Gastro-esophageal reflux disease without esophagitis (2) Chronic idiopathic constipation: Code(s): K59.04 - Chronic idiopathic constipation (3) IBS (irritable bowel syndrome): Code(s): K58.9 - Irritable bowel syndrome, unspecified Qualifiers: Irritable bowel syndrome type: with both diarrhea and constipation Qualified Code(s): K58.2 - Mixed irritable bowel syndrome (4) Melanosis coli: Code(s): K63.89 - Other specified diseases of intestine Plan Patient will continue Linzess, continue taking famotidine b.i.d.. Will add Citrucel, increase fluid intake and activity to promote better bowel motility. Patient was encouraged to avoid dietary triggers and late night snacking. Staying upright for minimum 3 hours after meals discussed with patient. Patient will follow-up in 3 months. FODMAP diet discussed with patient. List of food recommended as well as list of food to avoid given to patient. Patient is agreeable to new plan of care and verbalizes understanding of instructions. She was given the opportunity to ask questions and all questions answered. Thank you for allowing me to participate in her care Medications: New methylcellulose (laxative) (Citrucel) take it with full glass of water 500 mg PO DAILY 90 tabs 2RF K59.00 - Constipation, unspecified Coding Level of Care Code Est Pt Level 3 (59597) Diagnoses Gastroesophageal reflux disease, unspecified whether esophagitis present K21.9 Esophagitis presence: esophagitis presence not specified Chronic idiopathic constipation K59.04 Irritable bowel syndrome with both constipation and diarrhea K58.2 Irritable bowel syndrome type: with both diarrhea and constipation Melanosis coli K63.89 Time Spent (min) 25 Comment 15 minutes spent with patient and additional 10 minutes spent reviewing her records
[2024-08-28 16:27] VITALS: BP 112/54; PULSE 64; O2SAT 98; BMI 37.1
== END ==
PROVIDERS: PCP Registered Nurse; Visit Provider Nurse Practitioner Family
DX: K21.9 Gastro-esophageal reflux disease without esophagitis (principal); K59.04 Chronic idiopathic constipation; K58.2 Mixed irritable bowel syndrome; K63.89 Other specified diseases of intestine
CPT/HCPCS: 99213

== ENCOUNTER 2024-09-06 16:11 | Outpatient (REF) | payer OTHER, SELFPAY ==
--- NOTE | ~2024-09-06 | XR_ITS ---
EXAMINATION: XR CHEST CLINICAL INFORMATION: Cough, wheezing one week of cough and wheezing. COMPARISON: 04/11/2023 TECHNIQUE: 2 views of the chest were obtained. FINDINGS: Normal cardiomediastinal silhouette. Some atelectasis in the left lung base. No effusion or pneumothorax. Mild degenerative changes in the spine. XR/XR chest 2V IMPRESSION: Atelectasis in the left lung base. No consolidation. Electronically signed by: Selwyn Ackerman MD 09/07/2024 07:24 PM EDT
== END 2024-09-06 16:12 | disposition home or self-care (01) ==
LOC: HO.HHCX 16:11
PROVIDERS: Visit Provider Internal Medicine Geriatric Medicine
DX: R05.9 Cough, unspecified (principal); R06.2 Wheezing
CPT/HCPCS: 71046

== ENCOUNTER 2024-10-30 | Outpatient (REF) | payer OTHER, SELFPAY ==
[2024-11-10 19:18] LABS: HPV MRNA E6/E7 Rectal NOT DETECTED
== END 2024-10-30 00:01 | disposition home or self-care (01) ==
LOC: HO.LNP
PROVIDERS: Visit Provider Advanced Practice Midwife
DX: B20 Human immunodeficiency virus [HIV] disease (principal)
CPT/HCPCS: 87624; 88112

== ENCOUNTER 2024-10-31 10:38 | Outpatient (REF) | payer OTHER, SELFPAY ==
[2024-10-31 11:31] LABS: MANUAL DIFF FLAG NO
[2024-10-31 11:38] LABS: Basophils Percent Auto 0.9 % (0-2); Eosinophils Absolute Auto 0.1 X10*3/uL (0.0-0.4); Eosinophils Percent Auto 3.2 % (0-4); Hematocrit 39.1 % (37.0-47.0); Hemoglobin 12.9 g/dl (12.0-16.0); Imm Gran Abs Auto 0.01 X10*3/uL (0.00-0.03); Imm Gran Pct Auto 0.2 % (0.0-0.4); Lymphocytes Absolute Auto 2.1 X10*3/uL (1.2-4.9); Lymphocytes Percent Auto 47.9 % (20-40); Mean Corpuscular Hemoglobin 31.9 pg (27.0-33.0); Mean Corpuscular Volume 96.8 fL (80.0-98.0); Monocytes Absolute Auto 0.5 X10*3/uL (0.1-1.2); Monocytes Percent Auto 10.4 % (2-11); Neutrophils Absolute Auto 1.6 x10*3/uL (2.0-8.3); Neutrophils Percent Auto 37.4 % (45-73); Platelet Count 259 X10*3/uL (160-400); Red Blood Count 4.04 X10*6/uL (4.20-5.50); Red Cell Distribution Width 11.9 % (11.0-16.0); White Blood Count 4.3 X10*3/uL (4.8-10.8)
[2024-10-31 12:19] LABS: Alanine Aminotransferase 15 U/L (0-31); Albumin Level 3.7 g/dL (3.5-5.0); Alkaline Phosphatase 71 U/L (39-117); Anion Gap 11 (12-20); Aspartate Amino Transferase 28 U/L (5-31); Bilirubin Total 0.5 mg/dL (0.0-1.0); Blood Urea Nitrogen 18 mg/dL (9-16); Calcium 8.8 mg/dL (8.4-10.2); Carbon Dioxide 28 mmol/L (22-29); Chloride 108 mmol/L (96-108); Estimated Glomerular Filt Rate > 60; Glucose Random 120 mg/dL (60-115); Potassium 3.9 mmol/L (3.3-5.1); Sodium 143 mmol/L (135-145); Total Protein 7.2 g/dL (6.5-8.0)
[2024-10-31 12:39] LABS: HBc Num1 0.09 S/CO (0.00-0.79); HBsAGNum1 0.34 S/CO (0.00-0.99); Hepatitis B Core Antibody Nonreactive (Nonreactive); Hepatitis B Surface Antigen Negative (Negative); ~HepC Num1 0.14 S/CO (0.00-0.79); ~Hepatitis B Surface Antibody NONREACTIVE (Nonreactive); ~Hepatitis C Antibody Nonreactive (Nonreactive)
[2024-10-31 12:40] LABS: Hepatitis A Antibody IgG REACTIVE (Nonreactive)
[2024-10-31 12:44] LABS: Syphilis Screen Nonreactive (Nonreactive)
[2024-10-31 13:16] LABS: CT PCR NOT DETECTED (Not Detect.); NG PCR NOT DETECTED (Not Detect.)
[2024-11-01 15:48] LABS: HIV RNA PCR Qn Copies NOT DETECTED copies/mL (NOT DETECTED); HIV RNA PCR Qn Log Copies NOT DETECTED (NOT DETECTED)
[2024-11-05 17:23] LABS: Absolute CD3 Count 1633 cells/uL (840-3060); Absolute CD4 Count 818 cells/uL (490-1740); Absolute CD8 Count 822 cells/uL (180-1170); Absolute Lymphocytes 1934 cells/uL (850-3900); Percent CD3 Cells 84 % (57-85); Percent CD4 Cells 42 % (30-61); Percent CD8 Cells 43 % (12-42)
== END 2024-10-31 10:39 | disposition home or self-care (01) ==
LOC: HO.HHCL 10:38
PROVIDERS: Visit Provider Student in an Organized Health Care Education/Training Program
DX: B20 Human immunodeficiency virus [HIV] disease (principal)
CPT/HCPCS: 80053; 85025; 86359; 86360; 86704; 86706; 86708; 86780; 86803; 87340; 87491; 87536; 87591

== ENCOUNTER 2024-12-04 13:04 | Outpatient (AMB) | payer OTHER, SELFPAY ==
--- NOTE | 2024-12-04 13:19 | MHC.OFFVIS ---
Vital Signs 12/04/24 13:20 Height 5 ft Weight 194 lb 7.163 oz BMI 38.0 BP 114/64 Blood Pressure Location Lt brachial Position Sitting Pulse 74 Pulse Source Pulse Oximeter Pulse Oximetry (%) 97 Oxygen Delivery Method Room Air Intake Visit Reasons: 3 mo f/u Intake Note: ESTABLISHED PATIENT Reason; 3 mo FU Changes/concerns? Pt has experienced excess gas and bloating post meals. Turning [employer] Tender Required: Yes Turning Lathe Tender Services: Turning Lathe Tender Present Turning Lathe Tender Name: Frandy [id number] Information Interpreted: non-clinical & clinical Accompanied by: Self / Same As Patient Allergies efavirenz [From Sustiva] Allergy (Severe, Verified 12/04/24 13:20) NIGHTMARES oxycodone [From PERCOCET] Allergy (Intermediate, Verified 12/04/24 13:20) NAUSEA VOMITING DIZZYNESS HPI HPI 3 mo f/u: Details: LAST VISIT: GERD (gastroesophageal reflux disease) Chronic idiopathic constipation IBS (irritable bowel syndrome) Melanosis coli Plan Patient will continue Linzess, continue taking famotidine b.i.d.. Will add Citrucel, increase fluid intake and activity to promote better bowel motility. Patient was encouraged to avoid dietary triggers and late night snacking. Staying upright for minimum 3 hours after meals discussed with patient. Patient will follow-up in 3 months. FODMAP diet discussed with patient. List of food recommended as well as list of food to avoid given to patient. Patient is agreeable to new plan of care and verbalizes understanding of instructions. She was given the opportunity to ask questions and all questions answered. ? Thank you for allowing me to participate in her care Medications New methylcellulose (laxative) (Citrucel) take it with full glass of water 500 mg PO DAILY 90 tabs 2RF K59.00 TODAY'S VISIT Patient is here today for follow-up. Patient reports to be feeling well. Moves her bowels without any issues. Currently is taking famotidine twice a day. Patient denies dyspepsia, dysphagia or odynophagia. Reports postprandial abdominal bloating. Patient did denies eating late at night. However patient does admits to occasional snacking at night time. Patient denies abdominal pain or discomfort. Denies melena, hematochezia, unintentional weight loss or ribbon like stools. Patient reports that mainly she eats [place] food. Takes fiber supplements as she does not eat vegetables . Colonoscopy in August of 2023, tubular adenoma found, will repeat colonoscopy in August of 2028 [facility] Medical History Positive laboratory testing for human immunodeficiency virus PMR (polymyalgia rheumatica) Tubular adenoma Depression Asthma Primary osteoarthritis involving multiple joints Surgical History Hx of colonoscopy H/O tubal ligation Family History Father No problems noted. Mother No problems noted. Social History Household Members: None Housing: Apartment Alcohol intake: never Patient Tobacco Use Status: Never used Tobacco Current occupational status: disabled Sexual orientation: Straight/Heterosexual Gender identity: Female Female Reproductive History Menstrual Age of Menarche: 12 Review of Systems Const Denies weight gain and Denies weight loss ENT Reports no additional complaints, Denies dysphagia and Denies odynophagia Card Reports no additional complaints Resp Reports no additional complaints GI Reports abdominal pain, Denies belching, Denies melena, Reports bloating, Denies change in bowel habits, Reports constipation, Denies dysphagia, Denies excessive flatus, Denies dyspepsia, Denies heartburn, Denies diarrhea, Denies loose stools, Denies nausea, Denies odynophagia and Denies vomiting Reports no additional complaints Musc Reports no additional complaints Neuro Reports no additional complaints Psych Reports no additional complaints Endo Reports no additional complaints Physical Exam Vital Signs: Last Vital Signs Pulse 74 12/04/24 13:20 BP 114/64 12/04/24 13:20 Pulse Ox 97 12/04/24 13:20 Oxygen Delivery Method Room Air 12/04/24 13:20 BMI result Body Mass Index 38.0 Const General: healthy appearing and no acute distress Nutritional Appearance: obese Orientation/consciousness: patient oriented x3 Resp Effort & Inspection: normal respiratory effort, able to speak in complete sentences, no tracheal deviation and symmetric chest movement Auscultation: clear to auscultation bilaterally Cardio Rate: regular rate GI Inspection: Yes normal to inspection, No distended and Yes obesity Palpation (GI): Soft to palpation, not firm, nontender and No hepatosplenomegaly present Auscultation: normal bowel sounds General: Yes no CVA tenderness Back/Spine/Pelvis Back: no CVA tenderness Skin General skin exam: elasticity normal, turgor normal and dry skin Neuro General: patient oriented x3 Psych Appearance: grossly normal Mental Status: mental status grossly normal Assessment & Plan Assessment & Plan (1) GERD (gastroesophageal reflux disease): Code(s): K21.9 - Gastro-esophageal reflux disease without esophagitis Qualifiers: Esophagitis presence: esophagitis presence not specified Qualified Code(s): K21.9 - Gastro-esophageal reflux disease without esophagitis (2) Chronic idiopathic constipation: Code(s): K59.04 - Chronic idiopathic constipation (3) IBS (irritable bowel syndrome): Code(s): K58.9 - Irritable bowel syndrome, unspecified Qualifiers: Irritable bowel syndrome type: with constipation Qualified Code(s): K58.1 - Irritable bowel syndrome with constipation (4) Melanosis coli: Code(s): K63.89 - Other specified diseases of intestine (5) Postprandial abdominal bloating: Code(s): R14.0 - Abdominal distension (gaseous) Plan Continue famotidine twice a day. Avoid dietary triggers and late night snacking. Staying upright for minimum 3 hours after meals discussed with patient. Continue Linzess. Increase fluid intake and activity to promote better bowel motility. Simethicone for abdominal bloating. Discussed with patient low FODMAP diet, went over food recommended and food to avoid. List provided to patient. Follow-up in 6 months, sooner on as needed basis. Patient is agreeable to this plan and verbalizes understanding of instructions. She was given the opportunity to ask questions and all questions answered. Thank you for allowing me to participate in her care Medications: New simethicone (Gas Relief (simethicone)) 125 mg PO TID-QID PRN 120 caps 2RF abdominal distention R14.0 - Abdominal distension (gaseous) Coding Level of Care Code Tele Est Pt Level 4 (13986) Complex EM visit Add On G2211 Diagnoses Gastroesophageal reflux disease, unspecified whether esophagitis present K21.9 Esophagitis presence: esophagitis presence not specified Chronic idiopathic constipation K59.04 Irritable bowel syndrome with constipation K58.1 Irritable bowel syndrome type: with constipation Melanosis coli K63.89 Postprandial abdominal bloating R14.0 Time Spent (min) 35 Comment 25 minutes spent with patient and additional 10 minutes spent reviewing her records
[2024-12-04 13:20] VITALS: BP 114/64; PULSE 74; O2SAT 97; BMI 38.0
== END 2024-12-04 14:03 | disposition home or self-care (01) ==
PROVIDERS: PCP Student in an Organized Health Care Education/Training Program; Visit Provider Nurse Practitioner Family
DX: K21.9 Gastro-esophageal reflux disease without esophagitis (principal); K59.04 Chronic idiopathic constipation; K58.1 Irritable bowel syndrome with constipation; K63.89 Other specified diseases of intestine; R14.0 Abdominal distension (gaseous)
CPT/HCPCS: 99214; G2211

== ENCOUNTER → 2024-12-04 13:04 | Outpatient (BNVA) | payer OTHER, SELFPAY | PROVIDERS: PCP Student in an Organized Health Care Education/Training Program; Visit Provider Nurse Practitioner Family | DX: K21.9 Gastro-esophageal reflux disease without esophagitis (principal); K59.04 Chronic idiopathic constipation; K58.1 Irritable bowel syndrome with constipation; K63.89 Other specified diseases of intestine; R14.0 Abdominal distension (gaseous) | CPT/HCPCS: 99212 ==

== ENCOUNTER 2025-01-01 16:24 | Outpatient (REF) | payer OTHER, SELFPAY ==
[2025-01-01 18:31] LABS: MANUAL DIFF FLAG NO
[2025-01-01 19:04] LABS: C Reactive Protein < 0.10 mg/dL (< or = 0.50)
[2025-01-01 19:20] LABS: Basophils Absolute Auto 0.1 X10*3/uL (0.0-0.2); Eosinophils Absolute Auto 0.2 X10*3/uL (0.0-0.4); Hematocrit 37.2 % (37.0-47.0); Hemoglobin 12.3 g/dl (12.0-16.0); Imm Gran Abs Auto 0.01 X10*3/uL (0.00-0.03); Imm Gran Pct Auto 0.2 % (0.0-0.4); Lymphocytes Absolute Auto 2.7 X10*3/uL (1.2-4.9); Lymphocytes Percent Auto 51.3 % (20-40); Mean Corpuscular HGB Conc 33.1 g/dl (31.0-35.0); Mean Corpuscular Hemoglobin 31.7 pg (27.0-33.0); Mean Corpuscular Volume 95.9 fL (80.0-98.0); Mean Platelet Volume 10.6 fL (9.4-12.3); Monocytes Absolute Auto 0.5 X10*3/uL (0.1-1.2); Monocytes Percent Auto 9.1 % (2-11); Neutrophils Absolute Auto 1.9 x10*3/uL (2.0-8.3); Neutrophils Percent Auto 35.4 % (45-73); Platelet Count 235 X10*3/uL (160-400); Red Blood Count 3.88 X10*6/uL (4.20-5.50); Red Cell Distribution Width 12.2 % (11.0-16.0); White Blood Count 5.3 X10*3/uL (4.8-10.8)
[2025-01-01 19:21] LABS: TSH reflex Free T4 4.15 uIU/mL (0.32-4.0)
[2025-01-01 19:35] LABS: Folate 7.1 ng/mL (> or = 4.0); Vitamin B12 749 pg/mL (200-900)
[2025-01-01 20:03] LABS: Free T4 (Free Thyroxine) 1.01 ng/dL (0.71-1.85)
[2025-01-01 20:10] LABS: Erythrocyte Sedimentation Rate 34 MM/HR (0-20)
== END 2025-01-01 16:25 | disposition home or self-care (01) ==
LOC: HO.HHCL 16:24
PROVIDERS: Visit Provider General Practice
DX: M79.622 Pain in left upper arm (principal)
CPT/HCPCS: 36415; 82607; 82746; 84439; 84443; 85025; 85652; 86140

== ENCOUNTER 2025-04-02 17:32 | Emergency (ER) | payer OTHER, SELFPAY ==
--- NOTE | 2025-04-02 | ECG_ITS ---
Test Reason : cp Blood Pressure : */* mmHG Vent. Rate : 65 BPM Atrial Rate : 65 BPM P-R Int : 188 ms QRS Dur : 76 ms QT Int : 388 ms P-R-T Axes : 56 -1 36 degrees QTcB Int : 403 ms Normal sinus rhythm with sinus arrhythmia Normal ECG When compared with ECG of 22-Aug-2015 01:11, No significant change was found Referred By: Generic ED Physician Electronically Signed By: JULIA ROJAS
[2025-04-02 17:40] VITALS: BP 168/79; PULSE 78; O2SAT 98
[2025-04-02 17:46] VITALS: BMI 24.0
[2025-04-02 17:52] VITALS: BP 181/73; PULSE 65; RESP 14; TEMP 36.6; O2SAT 99
--- NOTE | 2025-04-02 17:52 | ED.CHESTPAIN ---
HPI - Chest Pain General Chief Complaint: Chest Pain Stated Complaint: from UC, chest pain, left arm pain, 12 lead nondia Time Seen by Provider: 04/02/25 17:45 History of Present Illness ED Provider: Vasyl Lowe MD HPI narrative: Chest pain sent from urgent Care. Received 325 aspirin. Vague mild mid chest burning . L arm pain x 1 month. No active chest pain here. no ripping/tearing. No exertional pain. Related Data Home Medications ?Medication ?Instructions ?Recorded ?Confirmed alendronate 70 mg tablet 70 mg PO QWEEK 09/26/23 08/07/24 cholecalciferol (vitamin D3) 25 25 mcg PO DAILY 09/26/23 08/07/24 mcg (1,000 unit) tablet lidocaine-prilocaine 2.5 %-2.5 % topical DAILY 09/26/23 08/07/24 topical cream multivitamin-ferrous tab PO 09/26/23 08/07/24 fumarate-folic acid 18 mg-400 mcg tablet (Certavite-Antioxidant) atorvastatin 20 mg tablet 20 mg PO DAILY 09/29/23 08/07/24 bictegravir 50 mg-emtricitabine 1 tab PO DAILY 03/06/24 08/07/24 200 mg-tenofovir alafenam 25 mg tablet (Biktarvy) calcium carbonate 600 mg PO BID 03/06/24 08/07/24 cyanocobalamin (vitamin B-12) 1,000 mcg PO DAILY 03/06/24 08/07/24 1,000 mcg tablet ammonium lactate 12 % lotion topical 04/03/24 08/07/24 calcium polycarbophil 625 mg mg PO 04/03/24 08/07/24 tablet (Fiber-Lax) ketotifen fumarate 0.025 % (0.035 drp ophthalmic (eye) 04/03/24 08/07/24 %) eye drops (Eye Itch Relief) prednisone 1 mg tablet 2 mg PO DAILY 08/07/24 08/07/24 albuterol sulfate 90 mcg/actuation 2 puff inhalation Q6H PRN wheezing 12/04/24 aerosol inhaler (Ventolin HFA) meloxicam 7.5 mg tablet mg PO 12/04/24 tirzepatide (weight loss) 5 mg/0.5 mg subcut QWEEK 01/08/25 mL subcutaneous pen injector (Zepbound) Previous Rx's ?Medication ?Instructions ?Recorded acetaminophen 650 mg 650 mg PO Q8H PRN for pain #90 tabs 07/14/21 tablet,extended release methylcellulose (laxative) 500 mg 500 mg PO DAILY #90 tabs 08/28/24 tablet (Citrucel) simethicone 125 mg capsule (Gas 125 mg PO TID-QID PRN abdominal 12/04/24 Relief (simethicone)) distention #120 caps docusate sodium 100 mg capsule 100 mg PO BEDTIME #90 caps 01/29/25 (Stool Softener) famotidine 20 mg tablet 20 mg PO BID #60 tabs 03/03/25 linaclotide 145 mcg capsule 145 mcg PO DAILY #30 caps 03/03/25 (Linzess) Allergies Allergy/AdvReac Type Severity Reaction Status Date / Time efavirenz [From Sustiva] Allergy Severe NIGHTMARES Verified 04/02/25 17:49 oxycodone [From PERCOCET] Allergy Intermediate NAUSEA Verified 04/02/25 17:49 VOMITING DIZZYNESS PMFSH Past Medical History Medical History Positive laboratory testing for human immunodeficiency virus PMR (polymyalgia rheumatica) Tubular adenoma Depression Asthma Primary osteoarthritis involving multiple joints Surgical History Hx of colonoscopy H/O tubal ligation Family History Family History Father No problems noted. Mother No problems noted. Social History Social History Household Members: None Housing: Apartment Alcohol intake: never Patient Tobacco Use Status: Never used Tobacco Smoked in Last 30 Days: No Use of substances other than those prescribed or required for medical reasons: No Advance Directives: No Advance Directives Information Provided: Yes Do you have a plan to hurt others: No Plan Current occupational status: disabled Sexual orientation: Straight/Heterosexual Gender identity: Female Physical Exam Vital Signs: Vital Signs: Last Vital Signs Temp 97.3 F 04/02/25 22:46 Pulse 62 04/02/25 22:46 Resp 16 04/02/25 22:46 BP 150/57 H 04/02/25 22:46 Pulse Ox 98 04/02/25 22:46 O2 Del Method Room Air 04/02/25 22:46 BMI result Body Mass Index 24.0 Const: Other: EXAM: Gen: Alert, awake, well appearing, well hydrated. Head: Atraumatic Eyes: Anicteric, Normal conjunctiva. ENT: Moist mucosa, no pallor. Neck: Supple. Respiratory: Breathing comfortably, No distress.Clear to auscultation bilaterally, symmetric chest expansion, No wheeze, rales, ronchi. Cardiovascular: Regular rate and rhythm. No murmurs or rub. Well perfused periphery, warm extremities. No edema. L parasternal pain/tender. Abdominal: Soft, no objective distension. No palpable masses or obvious organomegaly. No focal tenderness, no guarding, no rebound tenderness or other peritoneal findings. : No flank tenderness. Neuro: Alert. Gross movement of all extremities intact. Vital signs: See flowsheet Medical Decision Making Medical Decision Making [facility] Narrative: 64-year-old female who presents with atypical central burning discomfort more suggestive of esophagitis or GERD. She is comfortable here no pain she received an aspirin at urgent care. She had no radiation of the pain no ripping or tearing no significant hypertension. The patient has no known coronary disease. nondiagnostic ECG that I was not able to review myself at urgent care prior to arrival here. In the ED she is comfortable has some mild chest discomfort on the left parasternal border with deep palpation no bruising. No crepitus lungs are clear. ECG is normal. Heart score calculates at 3 HLD, for age and troponin just barely twice the upper limit of normal. Repeat 2 hour troponin is actually lower than the initial with delta < 15. Unclear troponinemia at this time though the patient is comfortable and I feel can be safely discharged home may need urgent provocative testing of told her to call her primary doctor tomorrow. Medical history well-controlled HIV, arthritis, asthma, hyperlipidemia. Lab Data [facility] Lab Attestation statement: I reviewed the patient's lab results. 04/02/25 18:31 04/02/25 18:31 Labs: Lab Results 04/02/25 04/02/25 Range/Units 18:31 20:52 WBC 5.9 (4.8-10.8) X10*3/uL RBC 3.93 L (4.20-5.50) X10*6/uL Hgb 12.6 (12.0-16.0) g/dl Hct 37.1 (37.0-47.0) % MCV 94.4 (80.0-98.0) fL MCH 32.1 (27.0-33.0) pg MCHC 34.0 (31.0-35.0) g/dl RDW 12.1 (11.0-16.0) % Plt Count 241 (160-400) X10*3/uL MPV 9.5 (9.4-12.3) fL Immature Gran % (Auto) 0.2 (0.0-0.4) % Neut % (Auto) 64.0 (45-73) % Lymph % (Auto) 26.6 (20-40) % Yates % (Auto) 8.0 (2-11) % Eos % (Auto) 0.5 (0-4) % Baso % (Auto) 0.7 (0-2) % Lymph # (Auto) 1.6 (1.2-4.9) X10*3/uL Yates # (Auto) 0.5 (0.1-1.2) X10*3/uL Eos # (Auto) 0.0 (0.0-0.4) X10*3/uL Baso # (Auto) 0.0 (0.0-0.2) X10*3/uL Abs Immat Gran (auto) 0.01 (0.00-0.03) X10*3/uL Absolute Neuts (auto) 3.8 (2.0-8.3) x10*3/uL Absolute Nucleated RBC 0.000 (0.0-0.012) X10*3/uL Nucleated RBC % (auto) 0.0 (0.0-0.2) /100WBC Sodium 144 (135-145) mmol/L Potassium 3.9 (3.3-5.1) mmol/L Chloride 110 H (96-108) mmol/L Carbon Dioxide 26 (22-29) mmol/L Anion Gap 12 (12-20) BUN 14 (9-16) mg/dL Creatinine 0.80 (0.5-1.4) mg/dL Estim Creat Clear Calc 61.3 Estimated GFR > 60 Random Glucose 120 H (60-115) mg/dL Calcium 9.6 D (8.4-10.2) mg/dL Troponin I High Sens 31.0 H 29.1 H (<3.5-17.0) ng/L Independent Interpretation I performed an independent interpretation of an: EKG ( sinus rhythm rate [address] or T segment changes no ischemia, no RV strain) Discharge Plan Discharge Clinical Impression: Chest pain Patient Disposition: Home, Self-Care Instructions: Chest Pain (ED) Additional Instructions: DISCHARGE DIAGNOSES: Chest pain needs further evaluation as an outpatient. Heart attack ruled out HISTORY OF PRESENTATION: atypical chest discomfort and arm pain for about a month. EMERGENCY DEPARTMENT COURSE,TESTS, TREATMENTS: While in the ED today You had a normal ECG. You had slight elevation of heart enzyme though we do not feel this is consistent with a heart attack and it did not elevate on a repeat testing. you did not have pain in the ER. DISCHARGE MEDICATIONS: [We have made no changes to your regular medication regimen] FOLLOW-UP: Call your primary or general physician soon as possible to discuss your symptoms, your ED visit and to discuss follow up plans Call your primary doctor you will need outpatient provocative cardiac testing within a week. If you develop any recurrent episode of chest pain return back to the emergency department INSTRUCTIONS & RETURN PRECAUTIONS: If any symptoms change first call your primary physician, if it is after-hours your primary doctors office should have a provider production tool engineer you can speak with. If the symptoms are severe or very concerning to you then call 911 or return to the ED. Vasyl oLwe MD Emergency Physician [facility] Prescriptions: No Action acetaminophen 650 mg tablet extended release 650 mg PO Q8H PRN (Reason: for pain) Qty: 90 2RF docusate sodium [Stool Softener] 100 mg capsule 100 mg PO BEDTIME Qty: 90 3RF famotidine 20 mg tablet 20 mg PO BID Qty: 60 3RF Linzess 145 mcg capsule 145 mcg PO DAILY Qty: 30 2RF alendronate 70 mg tablet 70 mg PO QWEEK cholecalciferol (vitamin D3) 25 mcg (1,000 unit) tablet 25 mcg PO DAILY Certavite-Antioxidant 18-400 mg-mcg tablet PO lidocaine-prilocaine 2.5-2.5 % cream topical DAILY Citrucel 500 mg tablet 500 mg PO DAILY Qty: 90 2RF Rx Instructions: take it with full glass of water atorvastatin 20 mg tablet 20 mg PO DAILY ketotifen fumarate [Eye Itch Relief] 0.025 % (0.035 %) drops ophthalmic (eye) ammonium lactate 12 % lotion topical Fiber-Lax 625 mg tablet PO Biktarvy 50-200-25 mg tablet 1 tab PO DAILY cyanocobalamin (vitamin B-12) 1,000 mcg tablet 1,000 mcg PO DAILY calcium carbonate 600 mg calcium (1,500 mg) tablet 600 mg PO BID prednisone 1 mg tablet 2 mg PO DAILY Zepbound 5 mg/0.5 mL pen injector subcut QWEEK albuterol sulfate [Ventolin HFA] 90 mcg/actuation HFA aerosol inhaler 2 puff inhalation Q6H PRN (Reason: wheezing) meloxicam 7.5 mg tablet PO simethicone [Gas Relief (simethicone)] 125 mg capsule 125 mg PO TID-QID PRN (Reason: abdominal distention) Qty: 120 2RF Interventions: ED Discharge Assessment Last Done: 04/02/25 22:46 Discharge Date/Time: 04/02/25 23:13 Print Language: Martiniquais
[2025-04-02 18:34] LABS: MANUAL DIFF FLAG NO
[2025-04-02 18:35] LABS: Basophils Percent Auto 0.7 % (0-2); Eosinophils Percent Auto 0.5 % (0-4); Hematocrit 37.1 % (37.0-47.0); Hemoglobin 12.6 g/dl (12.0-16.0); Imm Gran Abs Auto 0.01 X10*3/uL (0.00-0.03); Imm Gran Pct Auto 0.2 % (0.0-0.4); Lymphocytes Absolute Auto 1.6 X10*3/uL (1.2-4.9); Lymphocytes Percent Auto 26.6 % (20-40); Mean Corpuscular Hemoglobin 32.1 pg (27.0-33.0); Mean Corpuscular Volume 94.4 fL (80.0-98.0); Mean Platelet Volume 9.5 fL (9.4-12.3); Monocytes Absolute Auto 0.5 X10*3/uL (0.1-1.2); Neutrophils Absolute Auto 3.8 x10*3/uL (2.0-8.3); Platelet Count 241 X10*3/uL (160-400); Red Blood Count 3.93 X10*6/uL (4.20-5.50); Red Cell Distribution Width 12.1 % (11.0-16.0); White Blood Count 5.9 X10*3/uL (4.8-10.8)
[2025-04-02 18:47] LABS: Anion Gap 12 (12-20); Blood Urea Nitrogen 14 mg/dL (9-16); Calcium 9.6 mg/dL (8.4-10.2); Carbon Dioxide 26 mmol/L (22-29); Chloride 110 mmol/L (96-108); Creatinine Clr Calc Pharmacy 61.3; Estimated Glomerular Filt Rate > 60; Glucose Random 120 mg/dL (60-115); Potassium 3.9 mmol/L (3.3-5.1); Sodium 144 mmol/L (135-145)
[2025-04-02 19:05] VITALS: PULSE 87
--- NOTE | 2025-04-02 19:14 | PC.NURSE ---
this rn assumed care of pt, pt resting in stretcher, no acute distress noted. pt awaiting lab work at this time.
[2025-04-02 20:04] VITALS: BP 164/67; PULSE 66; RESP 18; TEMP 36.7; O2SAT 97
[2025-04-02 21:24] LABS: Troponin-I High Sensitivity 29.1 ng/L (<3.5-17.0)
[2025-04-02 22:00] VITALS: BP 150/57; PULSE 62; RESP 16; TEMP 36.3; O2SAT 98
[2025-04-02 22:46] VITALS: BP 150/57; PULSE 62; RESP 16; TEMP 36.3; O2SAT 98
== END 2025-04-02 23:13 | disposition home or self-care (01) ==
PROVIDERS: Emergency Provider Emergency Medicine; PCP Student in an Organized Health Care Education/Training Program
DX: R07.89 Other chest pain (principal); M79.602 Pain in left arm; Z79.899 Other long term (current) drug therapy
CPT/HCPCS: 36415; 80048; 84484; 85025; 93005; 99283; 99285

== ENCOUNTER → 2025-04-02 17:38 | Outpatient (BNV) | payer OTHER, SELFPAY | PROVIDERS: Emergency Provider Emergency Medicine; PCP Student in an Organized Health Care Education/Training Program; Visit Provider Internal Medicine | DX: R07.9 Chest pain, unspecified (principal) | CPT/HCPCS: 93010 ==

== ENCOUNTER 2025-04-30 08:31 | Outpatient (REF) | payer OTHER, SELFPAY ==
[2025-04-30 11:06] LABS: MANUAL DIFF FLAG NO
[2025-04-30 11:17] LABS: Appearance Urine Cloudy; Color Urine Yellow; Glucose Urine UA Negative (Negative); Leukocyte Esterase Urine Moderate (2+) (Negative); Nitrite Urine Negative (Negative); PH 5.5 (5.0-9.0); UMIC TRIGGER UA YES; Urine Blood Negative (Negative); Urine Ketones Trace mg/dL (Negative); Urine Protein Negative (Neg-Trace)
[2025-04-30 11:37] LABS: Basophils Percent Auto 0.9 % (0-2); Eosinophils Absolute Auto 0.1 X10*3/uL (0.0-0.4); Eosinophils Percent Auto 2.3 % (0-4); Hematocrit 38.3 % (37.0-47.0); Hemoglobin 12.7 g/dl (12.0-16.0); Imm Gran Abs Auto 0.01 X10*3/uL (0.00-0.03); Imm Gran Pct Auto 0.2 % (0.0-0.4); Lymphocytes Absolute Auto 1.8 X10*3/uL (1.2-4.9); Mean Corpuscular HGB Conc 33.2 g/dl (31.0-35.0); Mean Corpuscular Hemoglobin 32.2 pg (27.0-33.0); Mean Corpuscular Volume 97.2 fL (80.0-98.0); Mean Platelet Volume 10.5 fL (9.4-12.3); Monocytes Absolute Auto 0.4 X10*3/uL (0.1-1.2); Monocytes Percent Auto 8.2 % (2-11); Neutrophils Percent Auto 46.4 % (45-73); Platelet Count 235 X10*3/uL (160-400); Red Blood Count 3.94 X10*6/uL (4.20-5.50); Red Cell Distribution Width 12.3 % (11.0-16.0); White Blood Count 4.3 X10*3/uL (4.8-10.8)
[2025-04-30 11:40] LABS: Bacteria Urine None Seen (None Seen); Hyaline Casts Urine 0-2 /LPF (0-2); RBC Urine 0-2 /HPF (0-2)
[2025-04-30 11:44] LABS: Estimated Average Glucose 117 mg/dL; Hemoglobin A1c % 5.7 % (<6.0); Total Hemoglobin (HGBA1C) 3336.2117 umol/L
[2025-04-30 12:14] LABS: Erythrocyte Sedimentation Rate 34 MM/HR (0-20)
[2025-04-30 12:30] LABS: Folate 5.4 ng/mL (> or = 4.0); Vitamin B12 820 pg/mL (200-900)
[2025-04-30 13:50] LABS: CT PCR NOT DETECTED (Not Detect.); NG PCR NOT DETECTED (Not Detect.)
[2025-04-30 15:09] LABS: Alanine Aminotransferase 18 U/L (0-31); Alkaline Phosphatase 61 U/L (39-117); Anion Gap 7 (12-20); Aspartate Amino Transferase 27 U/L (5-31); Bilirubin Total 0.5 mg/dL (0.0-1.0); Blood Urea Nitrogen 15 mg/dL (9-16); C Reactive Protein < 0.10 mg/dL (< or = 0.50); Calcium 9.3 mg/dL (8.4-10.2); Carbon Dioxide 28 mmol/L (22-29); Chloride 110 mmol/L (96-108); Cholesterol 132 mg/dL (<200); Estimated Glomerular Filt Rate > 60; Glucose Random 104 mg/dL (60-115); HDL Cholesterol 61 mg/dL (>40); LDL Cholesterol Calculated 59 mg/dL (<100); Potassium 3.9 mmol/L (3.3-5.1); Sodium 141 mmol/L (135-145); TSH reflex Free T4 3.29 uIU/mL (0.32-4.0); Total Protein 7.1 g/dL (6.5-8.0); Triglycerides 64 mg/dL (<150); Vitamin D 25-OH Total 50.4 ng/mL (>30)
[2025-05-01 04:56] LABS: HBsAGNum1 1.56 S/CO (0.00-0.99); ~HepC Num1 0.16 S/CO (0.00-0.79); ~Hepatitis C Antibody Nonreactive (Nonreactive)
[2025-05-01 05:33] LABS: Mumps Virus IgG Antibody <9.00 AU/mL; Rubella IgG Antibody 6.84 Index; Rubeola IgG (Measles) >300.00 AU/mL
[2025-05-01 05:57] LABS: HBsAGNum2 Nonreactive; HBsAGNum3 Nonreactive; Hepatitis B Surface Antigen NEGATIVE (Negative)
[2025-05-01 15:18] LABS: HIV RNA PCR Qn Copies 43 copies/mL (NOT DETECTED); HIV RNA PCR Qn Log Copies 1.63 (NOT DETECTED)
[2025-05-02 06:39] LABS: IgA 297 mg/dL (70-320); IgG 1397 mg/dL (600-1540); IgM 67 mg/dL (50-300)
[2025-05-02 17:39] LABS: Trichomonas vaginalis RNA NOT DETECTED (NOT DETECTED)
[2025-05-02 21:18] LABS: TS Negative Control Passed; TS Panel A 0; TS Panel B 0; TS Positive Control Passed; TSpotTB Negative (Negative)
== END 2025-04-30 08:32 | disposition home or self-care (01) ==
LOC: HO.HHCL 08:31
PROVIDERS: Visit Provider Student in an Organized Health Care Education/Training Program
DX: Z00.00 Encounter for general adult medical examination without abnormal findings (principal); B20 Human immunodeficiency virus [HIV] disease; G62.9 Polyneuropathy, unspecified; Z13.1 Encounter for screening for diabetes mellitus; Z13.220 Encounter for screening for lipoid disorders
CPT/HCPCS: 80053; 80061; 81001; 82306; 82607; 82746; 82784; 83036; 84443; 85025; 85027; 85652; 86140; 86334; 86481; 86735; 86762; 86765; 86803; 87340; 87491; 87536; 87591; 87661

== ENCOUNTER 2025-05-27 10:15 | Outpatient (REF) | payer OTHER, SELFPAY ==
--- NOTE | 2025-05-27 | EMG_ITS ---
FINDINGS: Left tibial and peroneal motor studies were performed. Left superficial peroneal and sural sensory studies were performed. Tibial H-reflex was obtained and paraspinal muscles were tested with a needle. IMPRESSION: 1. 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 2. Chronic left lower lumbar radiculopathy. Please see the attached neurophysiology report for detail MD JAMAL Mendez/INDIRAL / [id number] MTDD
== END 2025-05-27 10:16 | disposition home or self-care (01) ==
LOC: HO.NEURO 10:15
PROVIDERS: PCP Student in an Organized Health Care Education/Training Program; Visit Provider Student in an Organized Health Care Education/Training Program
DX: G57.82 Other specified mononeuropathies of left lower limb (principal); G62.9 Polyneuropathy, unspecified
CPT/HCPCS: 95886; 95909

== ENCOUNTER → 2025-05-27 10:25 | Outpatient (BNV) | payer OTHER, SELFPAY | PROVIDERS: PCP Student in an Organized Health Care Education/Training Program; Visit Provider Psychiatry & Neurology Neurology | DX: G62.9 Polyneuropathy, unspecified (principal); M54.16 Radiculopathy, lumbar region | CPT/HCPCS: 95886; 95910 ==

== ENCOUNTER 2025-05-28 12:57 | Outpatient (AMB) | payer OTHER, SELFPAY ==
--- NOTE | 2025-05-28 13:01 | MHC.OFFVIS ---
Vital Signs 05/28/25 13:08 Height 5 ft 4 in Weight 165 lb BMI 28.3 BP 118/62 Blood Pressure Location Rt brachial Position Sitting Pulse 62 Pulse Source Pulse Oximeter Pulse Oximetry (%) 98 Oxygen Delivery Method Room Air Intake Visit Reasons: 6 mo f/u Intake Note: Est pt for mgmt of CIC. CC; C.O. chronic exacerbation of bloating, distention, and GI upset. No additional sx or concerns. Programming Intern Required: Yes Programming Intern Services: Programming Intern Present Programming Intern Name: Yaakov [id number] Information Interpreted: clinical only Accompanied by: Self / Same As Patient Allergies efavirenz (From Sustiva) Allergy (Severe, Verified 05/28/25 13:01) NIGHTMARES oxycodone (From PERCOCET) Allergy (Intermediate, Verified 05/28/25 13:01) NAUSEA VOMITING DIZZYNESS HPI HPI 6 mo f/u: Details: LAST VISIT: GERD (gastroesophageal reflux disease) Chronic idiopathic constipation IBS (irritable bowel syndrome) Melanosis coli Postprandial abdominal bloating Plan Continue famotidine twice a day. Avoid dietary triggers and late night snacking. Staying upright for minimum 3 hours after meals discussed with patient. Continue Linzess. Increase fluid intake and activity to promote better bowel motility. Simethicone for abdominal bloating. Discussed with patient low FODMAP diet, went over food recommended and food to avoid. List provided to patient. Follow-up in 6 months, sooner on as needed basis. Patient is agreeable to this plan and verbalizes understanding of instructions. She was given the opportunity to ask questions and all questions answered. ? Thank you for allowing me to participate in her care New simethicone (Gas Relief (simethicone)) 125 mg PO TID-QID PRN 120 caps 2RF abdominal distention R14.0 TODAY'S VISIT: Patient is here today for follow-up. Patient reports that she continues to have epigastric pain and abdominal bloating. Patient reports that she eats small meals and did not change much in her diet. Patient denies dyspepsia, dysphagia or odynophagia. Continues to occasional acid reflux depending on what she eats. Reports that she is taking Linzess and she moves her bowels better now. She is taking tirzepatide for weight loss and she has lost almost 30 lb since November. Patient reports that she had been on GLP 1 for the past few months. Patient reports that her symptoms has not changed. She was experiencing these symptoms before she started GLP1. Patient is taking Pepcid twice a day. Patient denies melena, hematochezia. [facility] Medical History (Updated 05/28/25 @ 20:02 by Liza Mendoza [facility]) GERD (gastroesophageal reflux disease) Constipation Positive laboratory testing for human immunodeficiency virus PMR (polymyalgia rheumatica) Tubular adenoma Depression Asthma Primary osteoarthritis involving multiple joints Surgical History Hx of colonoscopy H/O tubal ligation Family History Father No problems noted. Mother No problems noted. Social History Household Members: None Housing: Apartment Alcohol intake: never Patient Tobacco Use Status: Never used Tobacco Current occupational status: disabled Sexual orientation: Straight/Heterosexual Gender identity: Female Female Reproductive History Menstrual Age of Menarche: 12 Review of Systems Const Denies weight gain and Denies weight loss ENT Reports no additional complaints, Denies dysphagia and Denies odynophagia Card Reports no additional complaints Resp Reports no additional complaints GI Reports abdominal pain, Denies belching, Denies melena, Reports bloating, Denies change in bowel habits, Reports constipation, Denies dysphagia, Denies excessive flatus, Denies dyspepsia, Denies heartburn, Denies diarrhea, Denies loose stools, Denies nausea, Denies odynophagia and Denies vomiting Reports no additional complaints Musc Reports no additional complaints Neuro Reports no additional complaints Psych Reports no additional complaints Endo Reports no additional complaints Physical Exam Vital Signs: Last Vital Signs Pulse 62 05/28/25 13:08 BP 118/62 05/28/25 13:08 Pulse Ox 98 05/28/25 13:08 Oxygen Delivery Method Room Air 05/28/25 13:08 BMI result Body Mass Index 28.3 Const General: healthy appearing and no acute distress Nutritional Appearance: obese Orientation/consciousness: patient oriented x3 Resp Effort & Inspection: normal respiratory effort, able to speak in complete sentences, no tracheal deviation and symmetric chest movement Auscultation: clear to auscultation bilaterally Cardio Rate: regular rate GI Inspection: Yes normal to inspection, No distended and Yes obesity Palpation (GI): Soft to palpation, not firm, nontender and No hepatosplenomegaly present Auscultation: normal bowel sounds General: Yes no CVA tenderness Back/Spine/Pelvis Back: no CVA tenderness Skin General skin exam: elasticity normal, turgor normal and dry skin Neuro General: patient oriented x3 Psych Appearance: grossly normal Mental Status: mental status grossly normal Assessment & Plan Assessment & Plan (1) Constipation: Code(s): K59.00 - Constipation, unspecified Category: Medical Qualifiers: Constipation type: slow transit constipation Qualified Code(s): K59.01 - Slow transit constipation (2) GERD (gastroesophageal reflux disease): Code(s): K21.9 - Gastro-esophageal reflux disease without esophagitis Category: Medical Qualifiers: Esophagitis presence: esophagitis presence not specified Qualified Code(s): K21.9 - Gastro-esophageal reflux disease without esophagitis (3) Postprandial abdominal bloating: Code(s): R14.0 - Abdominal distension (gaseous) (4) Irritable bowel syndrome: Code(s): K58.9 - Irritable bowel syndrome, unspecified Qualifiers: Irritable bowel syndrome type: with constipation Qualified Code(s): K58.1 - Irritable bowel syndrome with constipation Plan Patient will continue current regimen. Avoid dietary triggers in late night snacking. Staying upright for minimal 3 hours after meals discussed with patient. Patient will continue taking simethicone as needed with meals. Patient not sure if she was taking it. Patient was encouraged to bring her medication in the next visit. Follow-up in 3-4 months, sooner on as needed basis. She is agreeable to this plan and verbalizes understanding of instructions. She was given the opportunity to ask questions and all questions answered. Thank you for allowing me to participate in her care Medications: Refilled simethicone (Gas Relief (simethicone)) 125 mg PO TID-QID PRN 120 caps 2RF abdominal distention R14.0 - Abdominal distension (gaseous) Coding Level of Care Code Est Pt Level 3 (95930) Diagnoses Slow transit constipation K59.01 Constipation type: slow transit constipation Gastroesophageal reflux disease, unspecified whether esophagitis present K21.9 Esophagitis presence: esophagitis presence not specified Postprandial abdominal bloating R14.0 Irritable bowel syndrome with constipation K58.1 Irritable bowel syndrome type: with constipation Time Spent (min) 30 Comment 20 minutes spent with patient and additional 10 minutes spent reviewing her records
[2025-05-28 13:08] VITALS: BP 118/62; PULSE 62; O2SAT 98; BMI 28.3
== END 2025-05-28 13:32 | disposition home or self-care (01) ==
LOC: HO.HGI 12:57
PROVIDERS: PCP Student in an Organized Health Care Education/Training Program; Visit Provider Nurse Practitioner Family
DX: K59.01 Slow transit constipation (principal); K21.9 Gastro-esophageal reflux disease without esophagitis; R14.0 Abdominal distension (gaseous); K58.1 Irritable bowel syndrome with constipation
CPT/HCPCS: 99213

== ENCOUNTER → 2025-05-28 12:57 | Outpatient (BNVA) | payer OTHER, SELFPAY | PROVIDERS: PCP Student in an Organized Health Care Education/Training Program; Visit Provider Nurse Practitioner Family | DX: K59.01 Slow transit constipation (principal); K21.9 Gastro-esophageal reflux disease without esophagitis; K58.1 Irritable bowel syndrome with constipation; R14.0 Abdominal distension (gaseous) | CPT/HCPCS: 99212 ==

== ENCOUNTER 2025-06-03 15:00 | Outpatient (REF) | payer OTHER, SELFPAY | END 2025-06-03 15:01 | disposition home or self-care (01) | LOC: HO.MAMMO 15:00 | PROVIDERS: PCP Student in an Organized Health Care Education/Training Program; Visit Provider Student in an Organized Health Care Education/Training Program | DX: Z12.31 Encounter for screening mammogram for malignant neoplasm of breast (principal) | CPT/HCPCS: 77063; 77067 ==

== ENCOUNTER → 2025-06-03 16:15 | Outpatient (BNV) | payer OTHER, SELFPAY | PROVIDERS: PCP Student in an Organized Health Care Education/Training Program; Visit Provider Internal Medicine | DX: Z12.31 Encounter for screening mammogram for malignant neoplasm of breast (principal) | CPT/HCPCS: 77063; 77067 ==

== ENCOUNTER 2025-06-18 14:07 | Outpatient (REF) | payer OTHER, SELFPAY ==
--- OUTSIDE RECORDS SUMMARY | 2025-06-06 03:35 | XMS_ITS | Continuity of Care Document ---
Author Organization [facility] Address [address] [place] [address] Dr [address] [place] [id number] Phone Care Team Providers Care Negative Turner Name Role Phone Saira Shukla DO Unavailable Unavailabl e Procedures Procedure Date Offic Cons New/estab Mod-hi 60- CT & [place] Duplex Scan-extrem Veins; Comp- CT & [place] Advance Directives Directive Yes / No Effective Date File Name No Information Encounters Encounter Description Practice Location Reason(s) For Visit Diagnoses Date Provider Providers Copied on Encounter [facility], [address] [place] [address] Dr Shrestha [address]Daniela [place], [id number], [place] tel:[phone] [place] [facility] No Information [address] [facility] [address], [place], [place], [id number] , [place]. tel:[phone] Offic Cons New/estab Mod-hi 60- CT & [place] [facility], [address] [place] [address] Dr Shrestha [address]Daniela [place], [id number], [place] tel:[phone] [facility] [place] Varicose veins of right lower extremity with inflammationLoc alized edema Danyell Edgar MD, RVT, RPVI [place]. [address] [facility] [address], [place], [place], [id number] , [place]. tel:[phone] [facility], [address] [place] [address] Dr [address], [place], [id number], [place] tel:[phone] [facility] [place] [facility] [place] Chronic venous hypertension (idiopathic) with other complications of bilateral lower extremity Herve ROONEY, BALBINA, CATHIE Samano. [address] [facility], [address], [place], [id number] , [place]. tel:[phone] Referring Provider: Selwyn Edgar MD, BALBINA, CATHIE, [address] [facility] [address], [facility] [place], [address] . tel:[phone] Family History Family Member Type Diagnosis Age At Onset No Information Payers Payer name Insurance type Covered alliance party ID Allan ferrari(s) [facility] CI [id number] Social History Type Description Quantity Date Captured Comments Sex Female Smoking Status No Information Chief Complaint And Reason For Visit No Information Reason For Referral Reason For Referral No Information Plan Of Treatment Date Type Action Status Goal Diet education completed Referral Ordered: Weight management: Referral to physician timeframe: 3 Months (related to Body mass index (BMI) 32.0-32.9, adult) ordered Appointment Ratna Cole BOOKED Appointment Ratna Cole BOOKED Appointment Ratna Cole BOOKED Appointment De Santiagoesa BOOKED Appointment De Santiagoesa BOOKED Appointment De Santiagoesa BOOKED Appointment De Santiagoesa BOOKED Appointment De Santiagoesa BOOKED Appointment [place]esa BOOKED Appointment Ratna Cole BOOKED Appointment Ratna Cole BOOKED Appointment Ratna Cole BOOKED Appointment Ratna Cole BOOKED History Of Present Illness Encounter Date Complaint History Of Prese nt Illness No Information Functional Status Date Functional Assessmen t No Information Instructions Date Instruction Additional Infor mation Diet education Related to Body mass index (BMI) 32.0-32.9, adult Giving Encouragement to exercise Related to Body mass index (BMI) 32.0-32.9, adult Lifestyle education Related to B amos mass index (BMI) 32.0-32.9, adult Patient education booklet given Related to Varicose veins of right lower extremity with inflammation Pre and post instruc tions reviewed and provided Related to Varicose veins of right lower extremity with inflammation Assessments Type Assessment Date No Information Patient Care Teams Name Effective Dates (start - stop) Status Members No Information
--- NOTE | ~2025-06-18 | XR_ITS ---
EXAMINATION: XR LUMBOSACRAL SPINE CLINICAL INFORMATION: chronic lower back pain COMPARISON: None available. TECHNIQUE: Three views of the lumbosacral spine. FINDINGS: There are 5 nonrib-bearing lumbar segments. L1-2 demonstrates anterior osteophytes and mild disc space narrowing. L2-3 demonstrates anterior osteophytes and mild disc space narrowing. L3-4 demonstrates mild disc space narrowing and small anterior osteophytes. L4-5 demonstrates small anterior osteophytes. L5-S1 demonstrates facet sclerosis and osteophytes. XR/XR lumbar spine 2-3V IMPRESSION: Mild multilevel degenerative changes. Electronically signed by: Rishabh Middleton MD 06/18/2025 02:49 PM EDT RP
== END 2025-06-18 14:08 | disposition home or self-care (01) ==
LOC: HO.HHCX 14:07
PROVIDERS: PCP Student in an Organized Health Care Education/Training Program; Visit Provider Student in an Organized Health Care Education/Training Program
DX: M54.50 Low back pain, unspecified (principal); G89.29 Other chronic pain
CPT/HCPCS: 72100

== ENCOUNTER → 2025-06-18 14:13 | Outpatient (BNV) | payer OTHER, SELFPAY | PROVIDERS: PCP Student in an Organized Health Care Education/Training Program; Visit Provider Radiology Diagnostic Radiology | DX: M51.360 Other intervertebral disc degeneration, lumbar region with discogenic back pain only (principal) | CPT/HCPCS: 72100 ==

== ENCOUNTER 2025-06-24 16:00 | Outpatient (RCR) | payer OTHER, SELFPAY | END 2025-09-09 15:47 | disposition home or self-care (01) | LOC: HO.PT 16:00 | PROVIDERS: PCP Student in an Organized Health Care Education/Training Program; Visit Provider Nurse Practitioner | DX: M25.512 Pain in left shoulder (principal); M54.50 Low back pain, unspecified; G89.29 Other chronic pain; G57.32 Lesion of lateral popliteal nerve, left lower limb | CPT/HCPCS: 97110; 97162; 97530 ==

== ENCOUNTER 2025-08-13 12:03 | Outpatient (REF) | payer OTHER, SELFPAY | END 2025-08-13 12:04 | disposition home or self-care (01) | LOC: HO.HHCL 12:03 | PROVIDERS: PCP Student in an Organized Health Care Education/Training Program; Visit Provider Student in an Organized Health Care Education/Training Program | DX: Z13.89 Encounter for screening for other disorder (principal) ==

== ENCOUNTER 2025-08-20 12:59 | Outpatient (AMB) | payer OTHER, SELFPAY ==
--- NOTE | 2025-08-20 13:02 | MHC.OFFVIS ---
Intake Visit Reasons: Microscopic hematuria Intake Note: Patient is present for MICROSCOPIC HEMATURIA Urology Medication:VITAMIN B12 Antibiotic Allergy:NONE Blood Thinner:NONE TODAY'S PVR:0ML'S Political Scientist Required: No Political Scientist Services: Political Scientist Present Political Scientist Name: FAWN OCHOA- CMI Allergies efavirenz (From Sustiva) Allergy (Severe, Verified 08/20/25 13:55) NIGHTMARES oxycodone (From PERCOCET) Allergy (Intermediate, Verified 08/20/25 13:55) NAUSEA VOMITING DIZZYNESS Medication List - Last Reconciled 08/20/25 by ERIC Cruz-JOYCE acetaminophen ER 650 mg PO Q8H PRN albuterol sulfate 90 mcg/actuation (Ventolin HFA) 2 puffs inhalation Q6H PRN alendronate 70 mg PO QWEEK ammonium lactate 12% topical atorvastatin 20 mg PO DAILY tptjsbsru-ovpwrmdy-poxtotd ala 50-200-25 mg (Biktarvy) 1 tab PO DAILY calcium carbonate 600 mg PO BID calcium polycarbophil (Fiber-Lax) mg PO cholecalciferol (vitamin D3) 25 mcg PO DAILY cyanocobalamin (vitamin B-12) 1,000 mcg PO DAILY docusate sodium (Stool Softener) 100 mg PO BEDTIME famotidine 20 mg PO BID fluticasone furoate 100 mcg/actuation (Arnuity Ellipta) 1 inh inhalation DAILY gabapentin 300 mg PO BEDTIME ketotifen fumarate 0.025%(0.035%) (Eye Itch Relief) drps ophthalmic (eye) lidocaine-prilocaine 2.5-2.5 % topical DAILY linaclotide (Linzess) 145 mcg PO DAILY methylcellulose (laxative) (Citrucel) 500 mg PO DAILY pjelojhkdqja-eefx-cjwxj acid 18-400 mg-mcg (Certavite-Antioxidant) tabs PO simethicone (Gas Relief (simethicone)) 125 mg PO TID-QID PRN tirzepatide (weight loss) (Zepbound) mg subcut QWEEK HPI Comments Details: Ratna is a very pleasant 65-year-old Estonian-speaking female patient of Dr. Dontae Curtis. She has a past medical of GERD, constipation, polymyalgia rheumatica, depression, asthma, and osteoarthritis. She presents to the office today as a new patient for microscopic hematuria. In discussion with the patient today she reports having followed up with her PCP and microscopic hematuria was noted at which time recommendations were made for urology referral for further assessment evaluation. In assessment of the patient today no microscopic hematuria noted on urinalysis today. When asked she denies any previous history of nicotine dependence and or workplace chemical exposure. We did discussed potential causes of microscopic hematuria as well as further workup in risks and benefits of these interventions. When asked she does report intermittent episodes of nocturia however describes these episodes as infrequent. We did discussed bladder triggers and irritants as well as importance of limiting fluids 2-3 hours prior to bed to decrease episodes of nocturia. She denies urinary urgency, urinary frequency, incontinence, hematuria, dysuria, foul smelling urine, changes to urinary stream, flank pain, fever, and or chills. She is happy with her current voiding parameters. I discussed reasons for blood in the urine may include but are not limited to kidney stones, cancer in the urinary tract, kidney stone disease or inflammatory conditions of the urinary tract. I have discussed workup to include cystoscopy evaluation. [facility] Medical History GERD (gastroesophageal reflux disease) Constipation Positive laboratory testing for human immunodeficiency virus PMR (polymyalgia rheumatica) Tubular adenoma Depression Asthma Primary osteoarthritis involving multiple joints Surgical History Hx of colonoscopy H/O tubal ligation Family History Father No problems noted. Mother No problems noted. Social History Household Members: None Housing: Apartment Alcohol intake: never Patient Tobacco Use Status: Never used Tobacco Current occupational status: disabled Sexual orientation: Straight/Heterosexual Gender identity: Female Female Reproductive History Menstrual Age of Menarche: 12 Review of Systems Const All systems reviewed & are unremarkable except as noted in HPI and below Physical Exam Const General: cooperative, healthy appearing, comfortable, no acute distress, well developed, alert and awake Orientation/consciousness: patient oriented x3 Limitations: language barrier HEENT Head: Yes normal to inspection, Yes normocephalic and Yes atraumatic Ears: hearing grossly normal bilaterally Eyes General: appearance normal, both eyes and all related structures Neck Neck: Yes normal visual inspection and Yes trachea midline Chest Chest palpation & inspection: normal inspection of the chest Resp Effort & Inspection: normal respiratory effort and able to speak in complete sentences Cardio Rate: regular rate GI Inspection: Yes normal to inspection General: Yes no CVA tenderness Back/Spine/Pelvis Back: no CVA tenderness Skin General skin exam: no rashes or lesions noted Neuro General: patient oriented x3 Extrem General: Yes normal to inspection Psych Appearance: grossly normal and well kempt Mental Status: mental status grossly normal Speech and movement: Normal speech and movement present and Clear speech present Affect: normal affect Attitude: cooperative Thought process: Normal thought process present Thought content: Normal thought content present Insight: Fair insight present (Psych) Judgement: Fair judgement present (Psych) Office Procedures Post Void Residual Post Residual Void Post Void Residual (PVR): 0 48865-Tyoy Void Residual by ultrasound Results AMB Urinalysis, Automated UA Leukoctes 0 Promise/uL Last Edit by Kenneth Iniguez [facility] on 08/20/25 13:16 UA Nitrite Negative Last Edit by Kenneth Iniguez [facility] on 08/20/25 13:16 UA Urobilinogen 0.2 mg/dL Last Edit by Kenneth Iniguez [facility] on 08/20/25 13:16 UA Protein 15 mg/dL Last Edit by Kenneth Iniguez [facility] on 08/20/25 13:16 UA pH 6.0 Last Edit by Kenneth Iniguez [facility] on 08/20/25 13:16 UA Blood 0 Felton/uL Last Edit by Kenneth Iniguez [facility] on 08/20/25 13:16 UA Specific [place] 1.020 Last Edit by Kenneth Iniguez [facility] on 08/20/25 13:16 UA Ketone Negative Last Edit by Kenneth Iniguez [facility] on 08/20/25 13:16 UA Bilirubin 1 mg/dL Last Edit by Kenneth Iniguez [facility] on 08/20/25 13:16 UA Glucose 0 mg/dL Last Edit by Kenneth Iniguez [facility] on 08/20/25 13:16 Results Reviewed Results Reviewed: Laboratory Last Values Urine pH (Auto) 6.0 08/20/25 13:05 Specific [place] (Auto) 1.020 08/20/25 13:05 Urine Protein (Auto) 15 mg/dL 08/20/25 13:05 Glucose (UA)(Auto) 0 mg/dL 08/20/25 13:05 Urine Ketones (Auto) Negative 08/20/25 13:05 Urine Blood (Auto) 0 Fel[place]/uL 08/20/25 13:05 Urine Nitrite (Auto) Negative 08/20/25 13:05 Urine Bilirubin (Auto) 1 mg/dL 08/20/25 13:05 Urine Urobilinogen (Auto) 0.2 mg/dL 08/20/25 13:05 Leukocyte Esterase (Auto) 0 Promise/uL 08/20/25 13:05 Assessment & Plan Assessment & Plan (1) Microscopic hematuria: Code(s): R31.29 - Other microscopic hematuria Category: Medical Plan In office urinalysis results with the patient today; as noted above; will send for urine cytology. We discussed potential causes of microscopic hematuria as well as further interventions and risks and benefits of these interventions. We discussed importance of limiting fluids 2-3 hours prior to bed to decrease episodes of nocturia. She reports be happy with current voiding parameters. Will obtain retroperitoneal ultrasound for further assessment evaluation. All questions were answered. Follow-up in 3 months with imaging to be completed prior; or sooner with any issues, concerns, and or questions. Orders: Orders AMB Urinalysis Automated Today Z13.9 - Encounter for screening, unspecified Urine Cytology Today R31.29 - Other microscopic hematuria US retroperitoneal comp Today R31.29 - Other microscopic hematuria Patient Instructions: The patient had an opportunity to ask questions regarding the treatment plan. All questions were answered. Physical exam, labs, and imaging were discussed and reviewed in detail. As well as risks, benefits, and discussion of treatment choices. No major barriers to understanding were identified. The patient expressed understanding and agreement with the above treatment plan. The patient was made aware they should contact our office by phone for worsening of their current condition, the appearance of new symptoms, or with any questions or concerns. Compliance is encouraged with any medications and follow up testing that is ordered. It is a privilege to be allowed the opportunity to participate in? your urological care.? Again, if you have any questions or concerns If you have any questions or concerns please do not hesitate to contact me. The office is [phone]. This note is constructed using voice recognition software. While every effort has been made to ensure accuracy assistant librarian errors may have been included. Yours sincerely, ERIC Cruz-JOYCE Coding Level of Care Code New Pt Level 3 (37946) Diagnoses Microscopic hematuria R31.29 CPT Codes Post Residual Void - PVR CPT Code: 45594-Oqtu Void Residual by ultrasound ([id number])
== END 2025-08-20 14:01 | disposition home or self-care (01) ==
LOC: HO.HUSH 13:00
PROVIDERS: PCP Student in an Organized Health Care Education/Training Program; Visit Provider Nurse Practitioner Family
DX: R31.29 Other microscopic hematuria (principal); Z13.9 Encounter for screening, unspecified
CPT/HCPCS: 99203

== ENCOUNTER 2025-08-20 12:59 | Outpatient (REF) | payer OTHER, SELFPAY | END 2025-08-20 13:00 | disposition home or self-care (01) | LOC: HO.LAB 12:59 | PROVIDERS: PCP Student in an Organized Health Care Education/Training Program; Visit Provider Nurse Practitioner Family | DX: R31.29 Other microscopic hematuria (principal); Z13.89 Encounter for screening for other disorder | CPT/HCPCS: 51798; 81003; 88112; 99202 ==

== ENCOUNTER 2025-09-03 11:47 | Outpatient (REF) | payer OTHER, SELFPAY ==
[2025-09-03 13:22] LABS: MANUAL DIFF FLAG NO
[2025-09-03 13:43] LABS: Hematocrit 39.4 % (37.0-47.0); Hemoglobin 13.3 g/dl (12.0-16.0); Imm Gran Abs Auto 0.00 X10*3/uL (0.00-0.03); Imm Gran Pct Auto 0.0 % (0.0-0.4); Lymphocytes Absolute Auto 2.4 X10*3/uL (1.2-4.9); Mean Corpuscular HGB Conc 33.8 g/dl (31.0-35.0); Mean Corpuscular Hemoglobin 32.8 pg (27.0-33.0); Mean Corpuscular Volume 97.0 fL (80.0-98.0); NRBC Abs Auto 0.000 X10*3/uL (0.0-0.012); NRBC Pct Auto 0.0 /100WBC (0.0-0.2); Platelet Count 212 X10*3/uL (160-400); Red Blood Count 4.06 X10*6/uL (4.20-5.50); White Blood Count 4.5 X10*3/uL (4.8-10.8)
[2025-09-03 13:53] LABS: Alanine Aminotransferase 15 U/L (0-31); Albumin Level 4.0 g/dL (3.5-5.0); Alkaline Phosphatase 82 U/L (39-117); Anion Gap 8 (12-20); Aspartate Amino Transferase 29 U/L (5-31); Blood Urea Nitrogen 15 mg/dL (9-16); Calcium 9.5 mg/dL (8.4-10.2); Carbon Dioxide 26 mmol/L (22-29); Chloride 112 mmol/L (96-108); Estimated Glomerular Filt Rate > 60; Potassium 4.4 mmol/L (3.3-5.1); Sodium 142 mmol/L (135-145); Total Protein 7.2 g/dL (6.5-8.0)
[2025-09-03 14:12] LABS: HBS Num1 > 1000.00 mIU/mL (0-7.99); ~Hepatitis B Surface Antibody REACTIVE (Nonreactive)
[2025-09-04 08:49] LABS: Rubeola IgG (Measles) >300.00 AU/mL
[2025-09-04 22:04] LABS: HIV RNA PCR Qn Copies NOT DETECTED copies/mL (NOT DETECTED); HIV RNA PCR Qn Log Copies NOT DETECTED (NOT DETECTED)
[2025-09-09 22:07] LABS: Absolute CD3 Count 2251 cells/uL (840-3060); Absolute CD8 Count 957 cells/uL (180-1170); Percent CD3 Cells 83 % (57-85); Percent CD8 Cells 35 % (12-42)
== END 2025-09-03 11:48 | disposition home or self-care (01) ==
LOC: HO.HHCL 11:47
PROVIDERS: PCP Student in an Organized Health Care Education/Training Program; Visit Provider Student in an Organized Health Care Education/Training Program
DX: Z01.84 Encounter for antibody response examination (principal); B20 Human immunodeficiency virus [HIV] disease
CPT/HCPCS: 36415; 80053; 85025; 86359; 86360; 86706; 86735; 86762; 86765; 87536

== ENCOUNTER 2025-09-11 09:56 | Outpatient (REF) | payer OTHER, SELFPAY ==
--- NOTE | ~2025-09-11 | XR_ITS ---
EXAMINATION: XR KNEE, RIGHT CLINICAL INFORMATION: pain after fall COMPARISON: None available. TECHNIQUE: AP oblique and lateral views of the right knee. FINDINGS: No acute cortical disruption or malalignment. Joint space narrowing involving mostly the medial compartment. No suprapatellar bursa joint effusion. 9 mm meniscal shaped calcification in the popliteal region. No lytic or blastic lesions. XR/XR knee RT 4V IMPRESSION: Mild medial compartment osteoarthrosis/osteoarthritis without acute fracture or dislocation. Electronically signed by: Deon Goodson MD 09/11/2025 11:50 AM EDT
--- NOTE | ~2025-09-11 | XR_ITS ---
EXAMINATION: XR LUMBOSACRAL SPINE CLINICAL INFORMATION: pt w hx of osteoporosis s/p fall w ongoing pain COMPARISON: June 18, 2025. TECHNIQUE: AP and lateral views. FINDINGS: Multilevel syndesmophyte formation and marginal osteophyte formation and endplate sclerosis throughout the axial skeleton, lower thoracic and lumbar spine. Levoconvex curvature apex at L2-3. No acute cortical disruption or malalignment. No lytic or blastic lesions. XR/XR lumbar spine 2-3V IMPRESSION: Multilevel thoracolumbar spondylosis and levoconvex scoliosis. Electronically signed by: Deon Goodson MD 09/11/2025 11:48 AM EDT
== END 2025-09-11 09:57 | disposition home or self-care (01) ==
LOC: HO.HHCX 09:56
PROVIDERS: PCP Student in an Organized Health Care Education/Training Program; Visit Provider Student in an Organized Health Care Education/Training Program
DX: M54.50 Low back pain, unspecified (principal); M25.561 Pain in right knee; G89.29 Other chronic pain
CPT/HCPCS: 72100; 73564

== ENCOUNTER → 2025-09-11 10:16 | Outpatient (BNV) | payer OTHER, SELFPAY | PROVIDERS: PCP Student in an Organized Health Care Education/Training Program; Visit Provider Radiology Diagnostic Radiology | DX: M17.11 Unilateral primary osteoarthritis, right knee (principal); M47.815 Spondylosis without myelopathy or radiculopathy, thoracolumbar region; M41.26 Other idiopathic scoliosis, lumbar region | CPT/HCPCS: 72100; 73564 ==

== ENCOUNTER 2025-10-08 14:18 | Outpatient (AMB) | payer OTHER, SELFPAY ==
--- OUTSIDE RECORDS SUMMARY | 2025-08-01 08:15 | XMS_ITS | Continuity of Care Document ---
Author Organization [facility] Address [address] MD [place] [address] Phone Care Team Providers Care Manufacturing Process Engineer Name Role Phone Herve ROONEY, BALBINA, Selwyn [...] Providers Copied on Encounter [facility], [address] [place] [address] Dr Shrestha 1000Suite 1000Daniela [place], [id number], [place] tel:[phone] [facility] Encounter for follow-up examination after completed treatment for conditions other than malignant neoplasmChronic venous hypertension (idiopathic) with other complications of right lower extremity Jul- Herve ROONEY RVT, CATHIE Samano. Formerly [facility], [address], [place], [id number] , [place]. [phone] Referring Provider: Selwyn Edgar MD, RVT, CATHIE, [address] [place] [address] [address], [place], [address] . tel:[phone] [place] [facility], [address] [place] [address] [address] 1000Daniela [place], [id number], tel:[phone] CVR - [facility] No Information Sep-0 5- 5 Herve ROONEY RVT, CATHIE Samano. [address] [place] [address], [address], [place], [id number] , [place]. [phone] [place] [facility], [address] [place] [address] Dr Shrestha 1000Suite 1000Daniela [place], [id number], [place] tel:[phone] CVR - [facility] Encounter for follow-up examination after completed treatment for conditions other than malignant neoplasmVaricos e veins of right lower extremity with pain Sep-0 2-202 5 Herve ROONEY RVT, CATHIE Samano. [address] [place] [address], [address], [place], [id number] , [place]. [phone] Referring Provider: Selwyn Edgar MD, RVT, CATHIE, [address] [place] [address] [address], [place], [address] . tel:[phone] [place] [facility], [address] [place] [address] [address], [place], [id number], [place] tel:[phone] CVR - [facility] Varicose veins of right lower extremity with other complications Sep-0 2- 5 Flaquito Garza . [address] [place] [address], [address], [place], [id number] , [place]. [phone] Referring Provider: Kayla Huddleston NP, [address] [place] [address] [address], [place], [address] . tel:[phone] [place] [facility], [address] [place] [address] Dr [address] 1000Daniela [place], [id number], [place] tel:[phone] [place] Chronic venous hypertension (idiopathic) with inflammation of right lower extremity 5 Herve ROONEY RVT, CATHIE Samano. [address] [address], [facility], [place], [id number] , [place]. tel: [phone] [place] [facility], [address] [place] [address] Dr Shrestha 1000[facility] 1000Daniela [place], [id number], [place] tel:[phone] [place] Varicose veins of right lower extremity with other complications 5 Herve ROONEY RVT, CATHIE Samano. [address] [place] [address], [place], [place], [id number] , [place]. tel: [phone] [place] [facility], [address] [place] [address] Dr Shrestha 1000[facility] Daniela Ahmadi MD, [id number], [place] tel:[phone] [facility] No Information 5 Herve ROONEY RVT, CATHIE Samano. [address] [place] [address], [place], [place], [id number] , [place]. tel: [phone] Offic Cons New/estab Mod-hi 60- CT & [place] [facility], [address] [place] [address] Dr Shrestha 1000Suite Daniela Ahmadi MD, [id number], [place] tel:[phone] [place] - [place] Varicose veins of right lower extremity with inflammationLoc alized edema 5 Herve ROONEY RVT, CATHIE Samano. [address] [place] [address], [address] [place] [address], [facility], [place], [id number] , [place]. tel: [phone] [place] [facility], [address] [place] [address] Dr Shrestha 1000[facility] Daniela Ahmadi MD, [id number], [place] tel:[phone] [place] Chronic venous hypertension (idiopathic) with other complications of bilateral lower extremity 5 Herve ORONEY RVT, CATHIE Samano. [address] [place] [address], [address], [place], [id number] , . tel:[phone] Referring Provider: Selwyn Edgar MD, RVT, RPVI, [address] [facility] [address], [place], [address] . tel:[phone] Family History Family Member Type Diagnosis Age At Onset No Information Payers Payer name Insurance type Covered libertarian ID Authorjuan ramona vonda(s) [facility] [id number] Social History Type Description Quantity Date Captured [...] Appointment Ratna Cole BOOKED Appointment Ratna Cole ( ask Pt To Come In For 3PM Not 3:15PM) BOOKED Appointment Ratna Cole BOOKED Appointment Ratna Cole BOOKED Appointment Ratna Cole BOOKED Appointment Ratna Cole BOOKED Appointment Ratna Cole BOOKED Appointment Ratna Cole BOOKED Appointment Ratna Cole BOOKED History Of Present Illness Encounter Date Complaint History Of Prese nt Illness No Information Functional Status Date Functional Assessmen t No Information Instructions Date Instruction Additional Infor mation Pre and post instruc tions reviewed and [...]
[2025-10-08 14:23] VITALS: BP 123/60; PULSE 68; RESP 16; O2SAT 99; BMI 31.2
--- NOTE | 2025-10-08 14:23 | A.OFFVIS_ITS ---
Vital Signs 10/08/25 14:23 Height 5 ft 4 in Weight 182 lb BMI 31.2 BP 123/60 Blood Pressure Location Lt brachial Position Sitting Respiration 16 Pulse 68 Pulse Source Pulse Oximeter Pulse Oximetry (%) 99 Oxygen Delivery Method Room Air Intake Visit Reasons: LOW BACK PAIN Psychometrist Required: Yes Psychometrist Name: Kavya [id number] Accompanied by: Self / Same As Patient Allergies efavirenz (From Sustiva) Allergy (Severe, Verified 10/08/25 14:27) NIGHTMARES oxycodone (From PERCOCET) Allergy (Intermediate, Verified 10/08/25 14:27) NAUSEA VOMITING DIZZYNESS HPI Comments Details: Ratna is a very pleasant 65 years old HIV-positive female, probably immunocompromised, who is suffering from multiple pain generators including pain in the back pain in bilateral knees, pain in bilateral hips, pain in bilateral elbows and bilateral ankles. She is suffering from widespread arthritis. It is most likely osteoarthritis however the side effects of the HIV indication. Because of her pain she reports that she can not sleep normally can not do activities of daily living she is able to take care of herself she is able to function normally, she is on permanent disability. She reports that sitting hurts the most, coughing does not aggravate her pain, prolonged sitting aggravate her pain, picking up stuff from the floor aggravate her pain, increased activities aggravate her pain, the mobility of the patient is also compromised. She needs walker for ambulation. She had x-ray in the lumbar spine results of which dictated as below. She had physical therapy 2 months ago with no help. Many years ago she received unknown injections in her back. She does not know the nature of the injection. Okay her past medical history significant for HIV/aids, she is suffering from arthritis, digestive problems, asthma, and infrequent headaches. Vein surgery is the only surgery she had in the past, she denies smoking cigarettes denies drinking alcohol she denies recreational drugs. [facility] Medical History GERD (gastroesophageal reflux disease) Constipation Positive laboratory testing for human immunodeficiency virus PMR (polymyalgia rheumatica) Tubular adenoma Depression Asthma Primary osteoarthritis involving multiple joints Surgical History Hx of colonoscopy H/O tubal ligation Family History Father No problems noted. Mother No problems noted. Social History Household Members: None Housing: Apartment Alcohol intake: never Patient Tobacco Use Status: Never used Tobacco Current occupational status: disabled Sexual orientation: Straight/Heterosexual Gender identity: Female Female Reproductive History Menstrual Age of Menarche: 12 Review of Systems Const All systems reviewed & are unremarkable except as noted in HPI and below ENT Reports Normal hearing present Neuro Reports Normal hearing present, Denies Abnormal speech present, Denies confusion and Denies Sensory deficit (Neuro) Psych Denies confusion Physical Exam Vital Signs: Last Vital Signs Pulse 68 10/08/25 14:23 Resp 16 10/08/25 14:23 BP 123/60 10/08/25 14:23 Pulse Ox 99 10/08/25 14:23 Oxygen Delivery Method Room Air 10/08/25 14:23 BMI result Body Mass Index 31.2 Const General: no acute distress; No confusion Nutritional Appearance: obese morbidly obese Orientation/consciousness: patient oriented x3 and No confusion Eyes General: appearance normal, both eyes and all related structures Pupils: Equal, round and reactive pupils present EOM: EOMs intact bilaterally Neck Neck: Yes full ROM Chest Chest palpation & inspection: normal inspection of the chest Resp Effort & Inspection: normal respiratory effort, able to speak in complete sentences, normal respiratory pattern, no audible wheezes and no cough Cardio Jugular venous distension: no JVD GI Inspection: Yes normal to inspection Back/Spine/Pelvis Other: Gaenslen test is positive bilaterally, Shay test is positive bilaterally, pelvic compression test is positive bilaterally, SLR is negative bilaterally. Neuro General: patient oriented x3, gait normal and No confusion Cranial nerves: Yes CN's II-XII intact bilaterally, Yes Equal, round and reactive pupils present, Yes Normal hearing present and Yes Ability to bilaterally elevate shoulders present Speech: No Abnormal speech present Gait exam (Neuro): Normal gait present Motor exam (neuro): 5/5 motor strength present throughout Sensory Exam: No Sensory deficit (Neuro) Extrem General: No pedal edema Psych Speech and movement: Normal speech and movement present Affect: normal affect Attitude: cooperative Thought process: Normal thought process present Thought content: Normal thought content present Insight: Good insight present (Psych) Judgement: Good judgement present (Psych) Results Reviewed Results Reviewed: XR LUMBOSACRAL SPINE CLINICAL INFORMATION: pt w hx of osteoporosis s/p fall w ongoing pain TECHNIQUE: AP and lateral views. FINDINGS: Multilevel syndesmophyte formation and marginal osteophyte formation and endplate sclerosis throughout the axial skeleton, lower thoracic and lumbar spine. Levoconvex curvature apex at L2-3. No acute cortical disruption or malalignment. No lytic or blastic lesions. Assessment & Plan Assessment & Plan (1) Sacroiliitis: Code(s): M46.1 - Sacroiliitis, not elsewhere classified Category: Medical (2) Sacroiliac joint dysfunction of both sides: Code(s): M53.3 - Sacrococcygeal disorders, not elsewhere classified Category: Medical (3) Vertebrogenic low back pain: Code(s): M54.51 - Vertebrogenic low back pain Category: Medical Plan My differential diagnosis for this patient would be between sacroiliac joint pain bilateral versus supra genic low back pain. The sclerotic endplate changes on the x-ray may point to possible Modic type 3 Modic type 4 changes. This is not ideal to treat the pain with BVN RFA, on physical exam sacroiliac joint problems can not be excluded. Therefore I will schedule this patient for bilateral therapeutic sacroiliac joint injection. If this procedure will result in prolonged and successful pain relief can repeat the sacroiliac joint injection for this patient up to 3 times a year. She has significant osteoporosis and sacroiliac joint fusion is probably contraindicated for the patient. Coding Level of Care Code New Pt Level 3 (22464) Diagnoses Sacroiliitis M46.1 Sacroiliac joint dysfunction of both sides M53.3 Vertebrogenic low back pain M54.51
== END 2025-10-08 14:49 | disposition home or self-care (01) ==
LOC: HO.PMC 14:19
PROVIDERS: PCP Student in an Organized Health Care Education/Training Program; Visit Provider Anesthesiology
DX: M46.1 Sacroiliitis, not elsewhere classified (principal); M53.3 Sacrococcygeal disorders, not elsewhere classified; M54.51 Vertebrogenic low back pain
CPT/HCPCS: 99203

== ENCOUNTER → 2025-10-08 14:18 | Outpatient (BNVA) | payer OTHER, SELFPAY | PROVIDERS: PCP Student in an Organized Health Care Education/Training Program; Visit Provider Anesthesiology | DX: M46.1 Sacroiliitis, not elsewhere classified (principal); Z21 Asymptomatic human immunodeficiency virus [HIV] infection status; M53.3 Sacrococcygeal disorders, not elsewhere classified; M54.51 Vertebrogenic low back pain | CPT/HCPCS: 99202 ==

== ENCOUNTER 2025-10-29 14:47 | Outpatient (REF) | payer OTHER, SELFPAY ==
--- OUTSIDE RECORDS SUMMARY | 2025-08-01 08:15 | XMS_ITS | Continuity of Care Document ---
Author Organization [facility] Address [address] MD [place] [address] Phone Care Team Providers Care Streetsweeper Operator Name Role Phone Herve ROONEY, BALBINA, Selwyn [...] Providers Copied on Encounter [facility], [address] [place] [address] Dr Shrestha 1000Suite 1000Daniela [place], [id number], [place] tel:[phone] [facility] Encounter for follow-up examination after completed treatment for conditions other than malignant neoplasmChronic venous hypertension (idiopathic) with other complications of right lower extremity Jul- Herve ROONEY RVT, CATHIE Samano. [facility], [address], [place], [id number] , [place]. [phone] Referring Provider: Selwyn Edgar MD, RVT, CATHIE, [address] [place] [address] [address], [place], [address] . tel:[phone] [place] [facility], [address] [place] [address] [address] 1000Daniela [place], [id number], tel:[phone] [facility]R - [facility] No Information Sep-0 5- 5 Herve ROONEY RVT, CATHIE Samano. [address] [place] [address], [address], [place], [id number] , [place]. [phone] [facility], [address] [place] [address] Dr Shrestha 1000Suite 1000Daniela MD, [id number], [place] tel:[phone] [facility]R - [facility] Encounter for follow-up examination after completed treatment for conditions other than malignant neoplasmVaricos e veins of right lower extremity with pain Sep-0 2-202 5 Herve ROONEY RVT, CATHIE Samano. [address] [place] [address], [address], [place], [id number] , [place]. [phone] Referring Provider: Selwyn Edgar MD, RVT, CATHIE, [address] [place] [address] [address], [place], [address] . tel:[phone] [place] [facility], [address] [place] [address] [address], [place], [id number], [place] tel:[phone] CVR - [facility] Varicose veins of right lower extremity with other complications Sep-0 2- 5 Flaquito Garza . [address] [place] [address], [address], [place], [id number] , [place]. [phone] Referring Provider: Kayla Huddleston NP, [address] [place] [address] [address], [place], [address] . tel:[phone] [place] [facility], [address] [place] [address] Dr [address] 1000Daniela [place], [id number], [place] tel:[phone] [facility] - [place] Chronic venous hypertension (idiopathic) with inflammation of right lower extremity 5 Herve ROONEY RVT, CATHIE Samano. [address] [address], [facility], [place], [id number] , [place]. tel: [phone] [place] [facility], [address] [place] [address] Dr Shrestha 1000[facility] 1000Daniela [place], [id number], [place] tel:[phone] [facility] - [place] Varicose veins of right lower extremity with other complications 5 Herve ROONEY RVT, CATHIE Samano. [address] [place] [address], [place], [place], [id number] , [place]. tel: [phone] [facility], [address] [place] [address] Dr Shrestha 1000[facility] Daniela Ahmadi MD, [id number], [place] tel:[phone] [facility] - [place] No Information 5 Herve ROONEY RVT, CATHIE Samano. [address] [place] [address], [place], [place], [id number] , [place]. tel: [phone] Offic Cons New/estab Mod-hi 60- CT & [place] [facility], [address] [place] [address] Dr Shrestha 1000Suite Daniela Ahmadi MD, [id number], [place] tel:[phone] [facility] - [place] [facility] [place] Varicose veins of right lower extremity with inflammationLoc alized edema 5 Herve ROONEY RVT, CATHIE Samano. [address] [place] [address], [address] [address], [facility], [place], [id number] , [place]. tel: [phone] [facility], [address] [place] [address] Dr Shrestha 1000[facility] Daniela Ahmadi MD, [id number], [place] tel:[phone] [facility] - [place] Chronic venous hypertension (idiopathic) with other complications of bilateral lower extremity 5 Herve ROONEY RVT, CATHIE Samano. [address] [place] [address], [address], [place], [id number] , . tel:[phone] Referring Provider: Selwyn Edgar MD, RVT, RPVI, [address] [facility] [address], [place], [address] . tel:[phone] Family History Family Member Type Diagnosis Age At Onset No Information Payers Payer name Insurance type Covered constitution party ID Authoriza tiyasmine(s) [facility] [id number] Social History Type Description Quantity Date Captured [...]
--- NOTE | ~2025-10-29 | US_ITS ---
EXAMINATION: US RETROPERITONEUM HISTORY: R31.29 - Other microscopic hematuria TECHNIQUE: Real-time grayscale ultrasound imaging of the kidneys was performed and images were reviewed. COMPARISON: Correlation is made with a CT of the abdomen with contrast dated 09/24/2023. FINDINGS: Right kidney: The right kidney measures 10.0 x 3.2 x 4.3 cm. Renal parenchymal echotexture and thickness are normal. There are no masses. There is no hydronephrosis or renal calculi. Left Kidney: The left kidney measures 10.1 x 5.0 x 4.9 cm. Renal parenchymal echotexture and thickness are normal. There is a 4 mm cyst in the interpolar region. There is no hydronephrosis or renal calculi. The urinary bladder is unremarkable. Bilateral ureteral jets are identified. Before voiding, the urinary bladder measured 11.0 x 6.7 x 8.6 cm, for an estimated volume of 332 mL. After voiding, the urinary bladder measured 4.9 x 3.2 x 5.3 cm, for an estimated volume of 44 mL. US/US retroperitoneal comp IMPRESSION: 1. 4 mm left renal cyst. 2. Post void bladder residual of 44 mL. Electronically signed by: Selwyn Figueroa MD 10/29/2025 03:23 PM [facility]
== END 2025-10-29 14:48 | disposition home or self-care (01) ==
LOC: HO.US 14:47
PROVIDERS: PCP Student in an Organized Health Care Education/Training Program; Visit Provider Nurse Practitioner Family
DX: R31.29 Other microscopic hematuria (principal)
CPT/HCPCS: 76770

== ENCOUNTER → 2025-10-29 14:49 | Outpatient (BNV) | payer OTHER, SELFPAY | PROVIDERS: PCP Student in an Organized Health Care Education/Training Program; Visit Provider Radiology Diagnostic Radiology | DX: N28.1 Cyst of kidney, acquired (principal) | CPT/HCPCS: 76770 ==

== ENCOUNTER 2025-11-05 12:52 | Outpatient (AMB) | payer OTHER, SELFPAY ==
--- NOTE | 2025-11-05 13:01 | MHC.OFFVIS ---
Intake Visit Reasons: 3m/US/UA Intake Note: Patient is present for 3M/US/UA IMAGIN10/29/25 Urology Medication:VITAMIN B12 Antibiotic Allergy:NONE Blood Thinner:NONE Steam Table Worker Required: Yes Steam Table Worker Language: Mill Feeder Services: Steam Table Worker Present Steam Table Worker Name: [id number] Allergies efavirenz (From Sustiva) Allergy (Severe, Verified 11/05/25 13:33) NIGHTMARES oxycodone (From PERCOCET) Allergy (Intermediate, Verified 11/05/25 13:33) NAUSEA VOMITING DIZZYNESS Medication List - Last Reconciled 11/05/25 by VALDEZ Cruz acetaminophen ER 650 mg PO Q8H PRN albuterol sulfate 90 mcg/actuation (Ventolin HFA) 2 puffs inhalation Q6H PRN alendronate 70 mg PO QWEEK ammonium lactate 12% topical atorvastatin 20 mg PO DAILY ofejzzgpm-fhznohol-xabajqr ala 50-200-25 mg (Biktarvy) 1 tab PO DAILY calcium carbonate 600 mg PO BID calcium polycarbophil (Fiber-Lax) mg PO cholecalciferol (vitamin D3) 25 mcg PO DAILY cyanocobalamin (vitamin B-12) 1,000 mcg PO DAILY docusate sodium (Stool Softener) 100 mg PO BEDTIME famotidine 20 mg PO BID fluticasone furoate 100 mcg/actuation (Arnuity Ellipta) 1 inh inhalation DAILY gabapentin 300 mg PO BEDTIME ketotifen fumarate 0.025%(0.035%) (Eye Itch Relief) drps ophthalmic (eye) lidocaine-prilocaine 2.5-2.5 % topical DAILY methylcellulose (laxative) (Citrucel) 500 mg PO DAILY vfvjsafeqfhl-auzu-ocaay acid 18-400 mg-mcg (Certavite-Antioxidant) tabs PO simethicone (Gas Relief Extra Strength) 125 mg PO QID PRN tirzepatide (weight loss) (Zepbound) mg subcut QWEEK HPI Comments Details: Ratna is a very pleasant 65-year-old Lebanese-speaking female patient of Dr. Dontae Curtis. She has a past medical of GERD, constipation, polymyalgia rheumatica, depression, asthma, and osteoarthritis. She presents to the office today for follow-up of her microscopic hematuria. Of note, patient was seen approximately 3 months ago as a new patient for microscopic hematuria at which time a retroperitoneal ultrasound and urine cytology was ordered and performed for further assessment evaluation. These results were reviewed and communicated with the patient today. Retroperitoneal ultrasound 11/20 or renal calculi noted bilaterally. Left kidney with 4 mm left renal cysts. Otherwise the urinary bladder is unremarkable. Postvoid bladder volume 44 mL. Urine cytology is as follows: 08/21 Urine Cytology: Negative for high-grade urothelial carcinoma There has been no microscopic hematuria noted on urinalysis during initial visit and again today no microscopic here hematuria noted on UA. We did discussed potential causes of microscopic hematuria as well as further workup to include in office cystoscopy. She denies any previous history of nicotine dependence, smoking history and or workplace chemical exposure. When asked she does continue to report episodes of nocturia however describes these episodes as infrequent and self managing. She denies urinary urgency, urinary frequency, incontinence, hematuria, dysuria, foul smelling urine, changes to urinary stream, flank pain, fever, and or chills. She is happy with her current voiding parameters. I discussed reasons for blood in the urine may include but are not limited to kidney stones, cancer in the urinary tract, kidney stone disease or inflammatory conditions of the urinary tract. I have discussed workup to include cystoscopy evaluation. All questions were answered. She otherwise offers no other issues or concerns at this time. [facility] Medical History GERD (gastroesophageal reflux disease) Constipation Positive laboratory testing for human immunodeficiency virus PMR (polymyalgia rheumatica) Tubular adenoma Depression Asthma Primary osteoarthritis involving multiple joints Surgical History Hx of colonoscopy H/O tubal ligation Family History Father No problems noted. Mother No problems noted. Social History Household Members: None Housing: Apartment Alcohol intake: never Patient Tobacco Use Status: Never used Tobacco Current occupational status: disabled Sexual orientation: Straight/Heterosexual Gender identity: Female Female Reproductive History Menstrual Age of Menarche: 12 Review of Systems Const All systems reviewed & are unremarkable except as noted in HPI and below Physical Exam Const General: cooperative, healthy appearing, comfortable, no acute distress, well developed, alert and awake Orientation/consciousness: patient oriented x3 Limitations: language barrier HEENT Head: Yes normal to inspection, Yes normocephalic and Yes atraumatic Ears: hearing grossly normal bilaterally Eyes General: appearance normal, both eyes and all related structures Neck Neck: Yes normal visual inspection and Yes trachea midline Chest Chest palpation & inspection: normal inspection of the chest Resp Effort & Inspection: normal respiratory effort and able to speak in complete sentences Cardio Rate: regular rate GI Inspection: Yes normal to inspection General: Yes no CVA tenderness Back/Spine/Pelvis Back: no CVA tenderness Skin General skin exam: no rashes or lesions noted Neuro General: patient oriented x3 Extrem General: Yes normal to inspection Psych Appearance: grossly normal and well kempt Mental Status: mental status grossly normal Speech and movement: Normal speech and movement present and Clear speech present Affect: normal affect Attitude: cooperative Thought process: Normal thought process present Thought content: Normal thought content present Insight: Fair insight present (Psych) Judgement: Fair judgement present (Psych) Results AMB Urinalysis, Automated UA Leukoctes 0 Promise/uL Last Edit by LUIS FERNANDO Vivas on 11/05/25 13:14 UA Nitrite Negative Last Edit by LUIS FERNANDO Vivas on 11/05/25 13:14 UA Urobilinogen 0.2 mg/dL Last Edit by LUIS FERNANDO Vivas on 11/05/25 13:14 UA Protein 15 mg/dL Last Edit by LUIS FERNANDO Vivas on 11/05/25 13:14 UA pH 6.0 Last Edit by LUIS FERNANDO Vivas on 11/05/25 13:14 UA Blood 0 Felton/uL Last Edit by LUIS FERNANDO Vivas on 11/05/25 13:14 UA Specific Humble 1.020 Last Edit by LUIS FERNANDO Vivas on 11/05/25 13:14 UA Ketone Negative Last Edit by LUIS FERNANDO Vivas on 11/05/25 13:14 UA Bilirubin 1 mg/dL Last Edit by LUIS FERNANDO Vivas on 11/05/25 13:14 UA Glucose 0 mg/dL Last Edit by LUIS FERNANDO Vivas on 11/05/25 13:14 Results Reviewed Results Reviewed: Laboratory Last Values Urine pH (Auto) 6.0 11/05/25 13:09 Specific Humble (Auto) 1.020 11/05/25 13:09 Urine Protein (Auto) 15 mg/dL 11/05/25 13:09 Glucose (UA)(Auto) 0 mg/dL 11/05/25 13:09 Urine Ketones (Auto) Negative 11/05/25 13:09 Urine Blood (Auto) 0 Felton/uL 11/05/25 13:09 Urine Nitrite (Auto) Negative 11/05/25 13:09 Urine Bilirubin (Auto) 1 mg/dL 11/05/25 13:09 Urine Urobilinogen (Auto) 0.2 mg/dL 11/05/25 13:09 Leukocyte Esterase (Auto) 0 Promise/uL 11/05/25 13:09 Date of Service: 10/29/25 Procedure(s): US retroperitoneal comp FINDINGS: Right kidney: The right kidney measures 10.0 x 3.2 x 4.3 cm. Renal parenchymal echotexture and thickness are normal. There are no masses. There is no hydronephrosis or renal calculi. Left Kidney: The left kidney measures 10.1 x 5.0 x 4.9 cm. Renal parenchymal echotexture and thickness are normal. There is a 4 mm cyst in the interpolar region. There is no hydronephrosis or renal calculi. The urinary bladder is unremarkable. Bilateral ureteral jets are identified. Before voiding, the urinary bladder measured 11.0 x 6.7 x 8.6 cm, for an estimated volume of 332 mL. After voiding, the urinary bladder measured 4.9 x 3.2 x 5.3 cm, for an estimated volume of 44 mL. IMPRESSION: 1. 4 mm left renal cyst. 2. Post void bladder residual of 44 mL. Assessment & Plan Assessment & Plan (1) Renal cyst: Code(s): N28.1 - Cyst of kidney, acquired Category: Medical (2) Microscopic hematuria: Code(s): R31.29 - Other microscopic hematuria Category: Medical Plan In office urinalysis results with the patient today; as noted above. Most recent retroperitoneal ultrasound results reviewed with the patient today; as noted above. Previous urine cytology results reviewed with the patient today; as noted above. We reviewed again potential causes of microscopic hematuria as well as further interventions and risks and benefits of these interventions. She currently denies any bothersome urinary issues or concerns. She reports be happy with current voiding parameters. Will continue with surveillance monitoring. Follow-up in 6 months with urinalysis; or sooner with any issues, concerns, and or questions. Orders: Orders AMB Urinalysis Automated Today Z13.9 - Encounter for screening, unspecified Patient Instructions: The patient had an opportunity to ask questions regarding the treatment plan. All questions were answered. Physical exam, labs, and imaging were discussed and reviewed in detail. As well as risks, benefits, and discussion of treatment choices. No major barriers to understanding were identified. The patient expressed understanding and agreement with the above treatment plan. The patient was made aware they should contact our office by phone for worsening of their current condition, the appearance of new symptoms, or with any questions or concerns. Compliance is encouraged with any medications and follow up testing that is ordered. It is a privilege to be allowed the opportunity to participate in? your urological care.? Again, if you have any questions or concerns If you have any questions or concerns please do not hesitate to contact me. The office is [phone]. This note is constructed using voice recognition software. While every effort has been made to ensure accuracy firer powerhouse errors may have been included. Yours sincerely, VALDEZ Cruz Coding Level of Care Code Est Pt Level 3 (88226) Add On Problem Visit Only Diagnoses Renal cyst N28.1 Microscopic hematuria R31.29
== END 2025-11-05 13:33 | disposition home or self-care (01) ==
LOC: HO.HUSH 12:53
PROVIDERS: PCP Student in an Organized Health Care Education/Training Program; Visit Provider Nurse Practitioner Family
DX: N28.1 Cyst of kidney, acquired (principal); R31.29 Other microscopic hematuria; Z13.9 Encounter for screening, unspecified
CPT/HCPCS: 99213; G2211

== ENCOUNTER → 2025-11-05 12:52 | Outpatient (BNVA) | payer OTHER, SELFPAY | PROVIDERS: PCP Student in an Organized Health Care Education/Training Program; Visit Provider Nurse Practitioner Family | DX: R31.29 Other microscopic hematuria (principal); N28.1 Cyst of kidney, acquired; Z11.51 Encounter for screening for human papillomavirus (HPV) | CPT/HCPCS: 36415; 81003; 87624; 87626; 88112; 88175; 99212 ==

== ENCOUNTER 2025-11-05 18:12 | Outpatient (REF) | payer OTHER, SELFPAY ==
--- OUTSIDE RECORDS SUMMARY | 2025-08-01 08:15 | XMS_ITS | Continuity of Care Document ---
Author Organization [facility] Address [address] Shrest[address] [place] [address] Phone Care Team Providers Care Bellmaker Name Role Phone Herve ROONEY, BALBINA, Selwyn BRAND Unavailable U navailable Allergies, Adverse Reactions, Alerts Substance Reaction Status Criticality No Known Allergies Active No Inform ation Procedures Procedure Date Duplex Scan-extrem Veins; Uni/ CT & [place] S PT Did Not Receive Services Duplex Scan-extrem Veins; Uni/ CT & [place] S Inj Scleros Solut; Mx Veins 1- CT & [place] S Ultrason Guidan Needle Bx-rad- CT & [place] S Varithena, Single Truncal Vein - CT & [place] Varithena, Multiple Truncal Veins Same L eg- CT & [place] Offic Cons New/estab Mod-hi 60- CT & [place] Duplex Scan-extrem Veins; Comp- CT & [place] Advance Directives Directive Yes / No Effective Date File Name No Information Encounters Encounter Description Practice Location Reason(s) For Visit Diagnoses Date Provider Providers Copied on Encounter [facility], [address] [place] [address] Dr Shrestha 1000[address] 1000Daniela [place], [id number], [place] tel:[phone] [facility] Encounter for follow-up examination after completed treatment for conditions other than malignant neoplasmChronic venous hypertension (idiopathic) with other complications of right lower extremity Jul- Herve ROONEY RVT, CATHIE Samano. Formerly [facility], [address], [place], [id number] , [place]. [phone] Referring Provider: Selwyn Edgar MD, RVT, CATHIE, [address] [place] [address] [address], [place], [address] . tel:[phone] [place] [facility], [address] [place] [address] [address]Daniela [place], [id number], tel:[phone] CVR - [facility] No Information Sep-0 5- 5 Herve ROONEY RVT, CATHIE Samano. [address] [place] [address], [address], [place], [id number] , [place]. [phone] [place] [facility], [address] [place] [address] Dr Shrestha 1000Suite 1000Daniela [place], [id number], [place] tel:[phone] [facility] - [facility] Encounter for follow-up examination after completed treatment for conditions other than malignant neoplasmVaricos e veins of right lower extremity with pain Sep-0 2-202 5 Herve ROONEY RVT, CATHIE Samano. [address] [place] [address], [address], [place], [id number] , [place]. [phone] Referring Provider: Selwyn Edgar MD, RVT, CATHIE, [address] [place] [address] [address], [place], [address] . tel:[phone] [place] [facility], [address] [place] [address] [address], [place], [id number], [place] tel:[phone] [facility] - [facility] Varicose veins of right lower extremity with other complications Sep-0 2- 5 Flaquito Garza . [address] [place] [address], [address], [place], [id number] , [place]. [phone] Referring Provider: Kayla Huddleston NP, [address] [place] [address] [address], [place], [address] . tel:[phone] [place] [facility], [address] [place] [address] Dr [address] 1000Daniela [place], [id number], [place] tel:[phone] [facility] - [place] Chronic venous hypertension (idiopathic) with inflammation of right lower extremity 5 Herve ROONEY RVT, CATHIE Samano. [address] [address], [facility], [place], [id number] , [place]. tel: [phone] [place] [facility], [address] [place] [address] Dr Shrestha [facility] 1000Daniela [place], [id number], [place] tel:[phone] [facility] [place] Varicose veins of right lower extremity with other complications 5 Herve ROONEY RVT, CATHIE Samano. [address] [place] [address], [place], [place], [id number] , [place]. tel: [phone] [place] [facility], [address] [place] [address] Dr Shrestha 1000[facility] Daniela Ahmadi [place], [id number], [place] tel:[phone] [facility] - [place] No Information 5 Herve ROONEY RVT, CATHIE Samano. [address] [place] [address], [place], [place], [id number] , [place]. tel: [phone] Offic Cons New/estab Mod-hi 60- CT & [place] [facility], [address] [place] [address] Dr Shrestha 1000Suite Daniela Ahmadi MD, [id number], [place] tel:[phone] [facility] - [place] [facility] [place] Varicose veins of right lower extremity with inflammationLoc alized edema 5 Herve ROONEY RVT, CATHIE Samano. [address] [place] [address], [place] [address], [facility], [place], [id number] , [place]. tel: [phone] [place] [facility], [address] [place] [address] Dr Shrestha 1000[facility] Daniela Ahmadi MD, [id number], [place] tel:[phone] [facility] - [place] Chronic venous hypertension (idiopathic) with other complications of bilateral lower extremity 5 Herve ROONEY RVT, CATHIE Samano. [address] [place] [address], [address], [place], [id number] , . tel:[phone] Referring Provider: Selwyn Edgar MD, RVT, RPVI, [address] [facility] [address], [place], [address] . tel:[phone] Family History Family Member Type Diagnosis Age At Onset No Information Payers Payer name Insurance type Covered libertarian ID Authoriza tiyasmine(s) [facility] [id number] Social History Type Description Quantity Date Captured [...] No Information Instructions Date Instruction Additional Infor flavio Pre and post instruc tions reviewed and provided Related to Varicose veins of right lower extremity with inflammation Patient education booklet given Related to Varicose veins of right lower extremity with inflammation Lifestyle education Related to B amos mass index (BMI) 32.0-32.9, adult Giving Encouragement to exercise Related to Body mass index (BMI) 32.0-32.9, adult Diet education Related to Body mass index (BMI) 32.0-32.9, adult Assessments Type Assessment Date No Information Patient Care Teams Name Effective Dates (start - stop) Status Members No Information
== END 2025-11-05 18:13 | disposition home or self-care (01) ==
LOC: HO.HHCLNP 18:12
PROVIDERS: Visit Provider Advanced Practice Midwife
DX: Z12.4 Encounter for screening for malignant neoplasm of cervix (principal); Z11.51 Encounter for screening for human papillomavirus (HPV); B20 Human immunodeficiency virus [HIV] disease
CPT/HCPCS: 87626; 88112; 88175

== ENCOUNTER 2025-11-12 14:24 | Outpatient (AMB) | payer OTHER, SELFPAY ==
--- NOTE | 2025-11-12 14:32 | MHC.OFFVIS ---
Vital Signs 11/12/25 14:51 Height 5 ft 4 in Weight 180 lb BMI 30.9 BP 116/60 Blood Pressure Location Rt brachial Position Sitting Pulse 74 Pulse Source Pulse Oximeter Pulse Oximetry (%) 99 Oxygen Delivery Method Room Air Intake Visit Reasons: 30m 4 mos f/u , r/s x2 per office. Intake Note: Est pt for mgmt of CIC + bloating. CC; C/O intermittent GI upset and gas but states that she is taking her fiber still and doing well. She also mentioned that she had been feeling worse when taking the omeprazole, simethicone, and the colace. Since stopping the medications, she has been feeling much better. Tumbler Machine Operator Required: Yes Tumbler Machine Operator Name: [facility] + [id number] Information Interpreted: clinical only Accompanied by: Self / Same As Patient Allergies efavirenz (From Sustiva) Allergy (Severe, Verified 11/12/25 14:32) NIGHTMARES oxycodone (From PERCOCET) Allergy (Intermediate, Verified 11/12/25 14:32) NAUSEA VOMITING DIZZYNESS HPI HPI 30m 4 mos f/u , r/s x2 per office.: Details: LAST VISIT Constipation GERD (gastroesophageal reflux disease) Postprandial abdominal bloating Irritable bowel syndrome Plan Patient will continue current regimen. Avoid dietary triggers in late night snacking. Staying upright for minimal 3 hours after meals discussed with patient. Patient will continue taking simethicone as needed with meals. Patient not sure if she was taking it. Patient was encouraged to bring her medication in the next visit. Follow-up in 3-4 months, sooner on as needed basis. She is agreeable to this plan and verbalizes understanding of instructions. She was given the opportunity to ask questions and all questions answered. ? Thank you for allowing me to participate in her care Refilled simethicone (Gas Relief (simethicone)) 125 mg PO TID-QID PRN 120 caps 2RF abdominal distention R14.0 TODAY'S VISIT Patient is here today for follow-up. Patient reports that she has been doing well since last visit. Patient had to stop omeprazole, simethicone and docusate sodium as she felt like her symptoms were worse. Since stopping she has been doing better. She still gets occasional gas and bloating, however less than before. Patient currently taking famotidine and her symptoms of acid reflux are suppressed. Patient denies any dyspepsia, dysphagia or odynophagia. Denies any trouble moving her bowels. Currently she is taking fiber and feels like this is helping her move her bowels. Patient denies any other GI concerning symptoms. She reports to have good appetite. Eating fairly well balanced diet although prefers Georgian food like rice and beans. Patient reports that she does not drink much water and mainly drinks juices and sometimes soda. Patient reports that she was started on GLP1 for weight loss. She is on Zepbound [facility] Medical History GERD (gastroesophageal reflux disease) Constipation Positive laboratory testing for human immunodeficiency virus PMR (polymyalgia rheumatica) Tubular adenoma Depression Asthma Primary osteoarthritis involving multiple joints Surgical History Hx of colonoscopy H/O tubal ligation Family History Father No problems noted. Mother No problems noted. Social History Household Members: None Housing: Apartment Alcohol intake: never Patient Tobacco Use Status: Never used Tobacco Current occupational status: disabled Sexual orientation: Straight/Heterosexual Gender identity: Female Female Reproductive History Menstrual Age of Menarche: 12 Review of Systems Const Denies weight gain and Denies weight loss ENT Reports no additional complaints, Denies dysphagia and Denies odynophagia Card Reports no additional complaints Resp Reports no additional complaints GI Denies abdominal pain, Denies belching, Denies melena, Reports bloating, Denies change in bowel habits, Denies constipation, Denies dysphagia, Denies excessive flatus, Denies dyspepsia, Denies heartburn, Denies diarrhea, Denies loose stools, Denies nausea, Denies odynophagia and Denies vomiting Reports no additional complaints Musc Reports no additional complaints Neuro Reports no additional complaints Psych Reports no additional complaints Endo Reports no additional complaints Physical Exam Vital Signs: Last Vital Signs Pulse 74 11/12/25 14:51 BP 116/60 11/12/25 14:51 Pulse Ox 99 11/12/25 14:51 Oxygen Delivery Method Room Air 11/12/25 14:51 BMI result Body Mass Index 30.9 Const General: healthy appearing and no acute distress Nutritional Appearance: obese Orientation/consciousness: patient oriented x3 Resp Effort & Inspection: normal respiratory effort, able to speak in complete sentences, no tracheal deviation and symmetric chest movement Auscultation: clear to auscultation bilaterally Cardio Rate: regular rate GI Inspection: Yes normal to inspection, No distended and Yes obesity Palpation (GI): Soft to palpation, not firm, nontender and No hepatosplenomegaly present Auscultation: normal bowel sounds General: Yes no CVA tenderness Back/Spine/Pelvis Back: no CVA tenderness Skin General skin exam: elasticity normal, turgor normal and dry skin Neuro General: patient oriented x3 Psych Appearance: grossly normal Mental Status: mental status grossly normal Assessment & Plan Assessment & Plan (1) Constipation: Code(s): K59.00 - Constipation, unspecified Category: Medical Qualifiers: Constipation type: slow transit constipation Qualified Code(s): K59.01 - Slow transit constipation (2) GERD (gastroesophageal reflux disease): Code(s): K21.9 - Gastro-esophageal reflux disease without esophagitis Category: Medical Qualifiers: Esophagitis presence: esophagitis presence not specified Qualified Code(s): K21.9 - Gastro-esophageal reflux disease without esophagitis (3) Postprandial abdominal bloating: Code(s): R14.0 - Abdominal distension (gaseous) (4) Irritable bowel syndrome: Code(s): K58.9 - Irritable bowel syndrome, unspecified Qualifiers: Irritable bowel syndrome type: without diarrhea Qualified Code(s): K58.9 - Irritable bowel syndrome, unspecified Plan Patient will continue taking H2 donavan. Continue fiber supplement. Avoid dietary triggers and late night snacking. Staying upright for minimum 3 hours after meals discussed with patient. Patient was instructed since she is on GL3 1 to eat smaller meals and more often. Currently patient does not have any epigastric pain. Follow-up in the office in 6 months. Patient was encouraged to call acid she will have any GI concerning symptoms. Patient is agreeable to current plan of care and verbalizes understanding of instructions. She was given the opportunity to ask questions and all questions answered. Thank you for allowing me to participate in her care Coding Level of Care Code Est Pt Level 3 (89184) Diagnoses Slow transit constipation K59.01 Constipation type: slow transit constipation Gastroesophageal reflux disease, unspecified whether esophagitis present K21.9 Esophagitis presence: esophagitis presence not specified Postprandial abdominal bloating R14.0 Irritable bowel syndrome without diarrhea K58.9 Irritable bowel syndrome type: without diarrhea Time Spent (min) 25 Comment 15 minutes spent with patient and additional 10 minutes spent reviewing her records
[2025-11-12 14:51] VITALS: BP 116/60; PULSE 74; O2SAT 99; BMI 30.9
== END 2025-11-12 15:05 | disposition home or self-care (01) ==
LOC: HO.HGI 14:25
PROVIDERS: PCP Student in an Organized Health Care Education/Training Program; Visit Provider Nurse Practitioner Family
DX: K59.01 Slow transit constipation (principal); K21.9 Gastro-esophageal reflux disease without esophagitis; R14.0 Abdominal distension (gaseous); K58.9 Irritable bowel syndrome, unspecified
CPT/HCPCS: 99213

== ENCOUNTER → 2025-11-12 14:24 | Outpatient (BNVA) | payer OTHER, SELFPAY | PROVIDERS: PCP Student in an Organized Health Care Education/Training Program; Visit Provider Nurse Practitioner Family | DX: K59.01 Slow transit constipation (principal); K21.9 Gastro-esophageal reflux disease without esophagitis; K58.9 Irritable bowel syndrome, unspecified; R14.0 Abdominal distension (gaseous) | CPT/HCPCS: 99212 ==